=== PATIENT | male | born 1940 | race Caucasian/White ===

== ENCOUNTER 2018-04-08 12:59 | Day surgery (SDC) | payer OTHER, SELFPAY ==
[2018-04-08] MEDS: PROPARACAINE 0.5% OPHTH SOL 2 DROPS EYE-OP (13:31)
[2018-04-08 13:37] VITALS: BP 170/96; PULSE 72; RESP 16; TEMP 35.8; O2SAT 98
[2018-04-08] MEDS: CATARACT EYE COMPOUND (10 DROPS/SYRINGE) 3 DROPS EYE-OP (13:39)
--- NOTE | 2018-04-08 14:37 | PM.PREOP ---
Pre-operative Note Interval Note Pre-op Check: History & Physical Reviewed by Physician
--- NOTE | 2018-04-08 14:57 | SUR.OPER ---
Supine on eye stretcher, head on extension cradle secured with tape. Arms tucked at sides with blanket. Pillow under knees.
[2018-04-08] MEDS: CHONDROIDTIN/SOD HYALURONATE 1.05 ML SYRINGE INTRAOCULA (15:01)
[2018-04-08] MEDS: LIDOCAINE JELLY 2% 5 ML 1 APPLIC TOP (15:02)
[2018-04-08] MEDS: MOXIFLOXACIN OPHTH DROPS 3 ML BOTTLE 2 DROPS INJ (15:02)
[2018-04-08] MEDS: PHENYLEPHRINE/LIDOCAINE 3ML VIAL (OR) EYE-OP (15:02)
[2018-04-08] MEDS: TRIAMCINOLONE 50 MG/5 ML VIAL INJ (15:02)
[2018-04-08] MEDS: TETRACAINE 0.5% OPHTH DROPS 15 ML 2 DROPS EYE-LEFT (15:03)
[2018-04-08] MEDS: BALANCED SALT IRRIG SOLN NO.2 500 ML, EPINEPHrine 1 MG IRR (15:03)
--- NOTE | 2018-04-08 15:10 | P.OP_ITS ---
Operative Date/Time/Diagnoses - Pre-op diagnosis: Cataract Left eye Post-op diagnosis: same Procedure & Clinicians Surgeon: Agapito Pulido Anesthesia Type: MAC +/- and Sedation Operative Notes Procedure in detail: Patient brought to the operating suite. Tetracaine drops placed in the left eye. Patient was prepped and draped in sterile manner. Wire lid speculum was placed in the eye. Betadine drops were placed on the eye. This was irrigated. Lidocaine jelly was placed on the eye. A paracentesis port was created with a side-port blade. 0.1 mL 1% preservative free lidocaine was injected into the anterior chamber. The anterior chamber was deepened with viscoelastic. 2.6 mm keratome was used to create a temporal clear corneal incision. Cystotome and Utrata forceps were used to create continuous tear capsulorrhexis. Balanced salt solution was used to hydro dissect the nucleus. The phacoemulsification handpiece was inserted and the nucleus was removed using the stop and chop technique. The irrigation aspiration handpiece was inserted and the remaining cortex was removed. Anterior chamber was deepened with viscoelastic. An Baldwin ZCB00 intraocular lens with a power of 18.5 was injected into the capsular bag. Irrigation aspiration handpiece was inserted and the remaining viscoelastic was removed. Incision was hydrated with balanced salt solution and found to be leak free with pressure with Weck- Kelsey sponges. 0.1 mL Vigamox injected anterior chamber. 0.3 mL Kenalog 10 mg was injected subconjunctivally. Lid speculum was removed. The patient left the operating room in excellent condition. Complications: none Condition: stable Disposition: same day surgery
[2018-04-08 15:17] VITALS: BP 130/83; PULSE 69; RESP 15; TEMP 36.4; O2SAT 100
[2018-04-08 15:20] VITALS: O2SAT 99
== END 2018-04-08 15:30 | disposition home or self-care (01) ==
LOC: OR 13:01
PROVIDERS: Visit Provider Ophthalmology
DX: H25.12 Age-related nuclear cataract, left eye (principal); I48.91 Unspecified atrial fibrillation
CPT/HCPCS: J0171; J2250; J3010; J3301

== ENCOUNTER 2018-04-22 11:19 | Day surgery (SDC) | payer OTHER, SELFPAY ==
[2018-04-22] MEDS: PROPARACAINE 0.5% OPHTH SOL 2 DROPS EYE-OP (11:49)
[2018-04-22] MEDS: CATARACT EYE COMPOUND (10 DROPS/SYRINGE) 3 DROPS EYE-OP (11:53)
[2018-04-22 12:02] VITALS: BP 139/86; PULSE 57; RESP 15; TEMP 36; O2SAT 97
--- NOTE | 2018-04-22 12:33 | PM.PREOP ---
Pre-operative Note Interval Note Pre-op Check: History & Physical Reviewed by Physician
--- NOTE | 2018-04-22 12:34 | P.OP_ITS ---
Operative Date/Time/Diagnoses - Pre-op diagnosis: Cataract Right eye Post-op diagnosis: same Procedure & Clinicians Procedure: Cataract Surgery Same procedure as scheduled: Yes Surgeon: Agapito Pulido Anesthesia Type: MAC +/- and Sedation Operative Notes Procedure in detail: Patient brought to the operating suite. Tetracaine drops placed in the right eye. Patient was prepped and draped in sterile manner. Wire lid speculum was placed in the eye. Betadine drops were placed on the eye. This was irrigated. Lidocaine jelly was placed on the eye. A paracentesis port was created with a side-port blade. 0.1 mL 1% preservative free lidocaine was injected into the anterior chamber. The anterior chamber was deepened with viscoelastic. 2.6 mm keratome was used to create a temporal clear corneal incision. Cystotome and Utrata forceps were used to create continuous tear capsulorrhexis. Balanced salt solution was used to hydro dissect the nucleus. The phacoemulsification handpiece was inserted and the nucleus was removed using the stop and chop technique. The irrigation aspiration handpiece was inserted and the remaining cortex was removed. Anterior chamber was deepened with viscoelastic. An Baldwin ZCB00 intraocular lens with a power of 18.0 was injected into the capsular bag. Irrigation aspiration handpiece was inserted and the remaining viscoelastic was removed. Incision was hydrated with balanced salt solution and found to be leak free with pressure with Weck- Kelsey sponges. 0.1 mL Vigamox injected anterior chamber. 0.3 mL Kenalog 10 mg was injected subconjunctivally. Lid speculum was removed. The patient left the operating room in excellent condition. Complications: none Condition: stable Disposition: same day surgery
[2018-04-22] MEDS: CHONDROIDTIN/SOD HYALURONATE 1.05 ML SYRINGE INTRAOCULA (12:51)
[2018-04-22] MEDS: TRIAMCINOLONE 50 MG/5 ML VIAL INJ (12:52)
[2018-04-22] MEDS: MOXIFLOXACIN OPHTH DROPS 3 ML BOTTLE 2 DROPS INJ (12:52)
[2018-04-22] MEDS: BALANCED SALT IRRIG SOLN NO.2 500 ML, EPINEPHrine 1 MG IRR (12:52)
[2018-04-22] MEDS: TETRACAINE 0.5% OPHTH DROPS 15 ML 2 DROPS EYE-RIGHT (12:53)
[2018-04-22] MEDS: PHENYLEPHRINE/LIDOCAINE 3ML VIAL (OR) EYE-OP (12:54)
[2018-04-22] MEDS: LIDOCAINE JELLY 2% 5 ML 1 APPLIC TOP (12:54)
[2018-04-22 13:45] VITALS: BP 125/78; PULSE 73; RESP 12; TEMP 36.1; O2SAT 96
== END 2018-04-22 13:40 | disposition home or self-care (01) ==
LOC: OR 11:20
PROVIDERS: Visit Provider Ophthalmology
DX: H25.11 Age-related nuclear cataract, right eye (principal); I48.91 Unspecified atrial fibrillation
CPT/HCPCS: J0171; J2250; J3010; J3301

== ENCOUNTER 2018-08-02 02:27 | Emergency (ER) | payer OTHER, SELFPAY ==
[2018-08-02 02:46] VITALS: BP 159/88; PULSE 98; RESP 15; TEMP 36.4; O2SAT 98
--- NOTE | 2018-08-02 02:52 | ED.MALEGU ---
HPI - Male Genitourinary General Chief complaint: Urogenital-Male Stated complaint: frequent urination, burning sensation Time Seen by Provider: 08/02/18 02:42 Source: patient and family Mode of arrival: ambulatory Limitations: no limitations History of Present Illness HPI Narrative: ED year old nonsmoker with history of cardiac disease presents with his in the chief complaint of UTI symptoms for the past 2 days. He has had quite a few urinary tract infections in his life and states this feels very similar. He admits to gradually worsening dysuria, frequency and urgency over the past day or 2. He denies systemic symptoms such as fever, chills nor nausea or vomiting. He denies any new back pain and is otherwise well and free of complaint. MD Complaint: dysuria Onset (ago): day(s) Duration: constant Severity: mild Relieving factors: none Exacerbating factors: none Reports dysuria Related Data Home Medications Medication Instructions Recorded Confirmed aspirin 81 mg PO DAILY #0 03/15/11 04/22/18 CA PANTOTHENATE/FOLIC ACID/VIT 1 tab PO QDAY #0 05/18/13 04/22/18 (MULTIVITAMIN) Lanolin/Mineral Oil/Petrolat 30 ml OP QDAY #0 05/18/13 04/22/18 (ARTIFICIAL TEARS) oxymetazoline [Afrin 1 spray INTRANASAL QDAY #0 05/18/13 04/22/18 (oxymetazoline)] [CRANBERRY] 300 mg PO QDAY #0 07/01/13 04/22/18 cholecalciferol (vitamin D3) 1,000 unit PO DAILY 04/08/18 04/22/18 [Vitamin D3] colchicine 0.6 mg PO DAILY 04/08/18 04/22/18 cyanocobalamin (vitamin B-12) 1,000 mcg PO DAILY 04/08/18 04/22/18 [Vitamin B-12] docusate sodium [Stool Softener] 1 tab PO DAILY 04/08/18 04/22/18 latanoprost 1 drp EYE-BOTH DAILY 04/08/18 04/22/18 levothyroxine [Synthroid] 75 mcg PO DAILY 04/08/18 04/22/18 metoprolol succinate 25 mg PO DAILY 04/08/18 04/22/18 omeprazole See Label Instructions .ROUTE 04/08/18 04/22/18 .COMPLEX simvastatin 10 mg PO QPM 04/08/18 04/22/18 warfarin See Label Instructions .ROUTE 04/08/18 04/22/18 .COMPLEX warfarin See Label Instructions .ROUTE 04/08/18 04/22/18 .COMPLEX Previous Rx's Medication Instructions Recorded nitroglycerin [Nitrostat] 0.4 mg SUBLINGUAL PRN #25 10/20/12 cephalexin [Keflex] 500 mg PO QID 7 Days #28 cap 08/02/18 Allergies Allergy/AdvReac Type Severity Reaction Status Date / Time venom-honey bee Allergy Severe SOB Verified 04/22/18 11:45 [bee venom (honey bee)] amoxicillin Allergy Mild AGITATION,SKIN Verified 04/22/18 11:45 CRAWL ciprofloxacin Allergy Mild JOINT Verified 04/22/18 11:45 SWELLING, WHITE BM, RED RASH Penicillins Allergy Mild RASH Verified 04/22/18 11:45 sulfamethoxazole Allergy Unknown AGITATION,SKIN Verified 04/22/18 11:45 [From ] CRAWL trimethoprim [From ] Allergy Unknown AGITATION,SKIN Verified 04/22/18 11:45 CRAWL Review of Systems Review of Systems All systems reviewed & are unremarkable except as noted in HPI and below Constitutional Denies chills, Denies fever(s), Denies lethargy and Denies weakness Eyes Denies change in vision, Denies eye discharge, Denies irritation and Denies loss of vision ENT Ears, Nose, Mouth, and Throat: Denies change in voice, Denies neck pain and Denies sore throat Cardiovascular Denies chest pain, Denies irregular heart rhythm, Denies lightheadedness, Denies palpitations, Denies dyspnea, Denies dyspnea on exertion and Denies orthopnea Respiratory Denies cough, Denies dyspnea, Denies dyspnea on exertion and Denies wheezing Gastrointestinal Gastrointestinal: Denies abdominal pain, Denies change in bowel habits, Denies diarrhea, Denies nausea and Denies vomiting Genitourinary Denies hematuria, Reports dysuria, Denies flank pain, Reports urinary frequency, Reports urinary hesitancy and Reports urinary urgency Musculoskeletal Denies neck pain Integumentary/Breasts Denies pruritus, Denies erythema, Denies rash and Denies wounds Neurologic Denies confusion, Denies loss of vision and Denies weakness Psychiatric Denies anxiety, Denies confusion, Denies depression, Denies homicidal ideation and Denies suicidal ideation Endocrine Denies palpitations Hematologic/Lymphatic Denies easy bruising Allergic/Immunologic Denies wheezing PFSH Social History household members: spouse Smoking Status: Never smoker Exam Narrative Exam Narrative: GEN: AOx3 and in mild distress EYES: Pupils are equal, round, and reactive to light and accommodation. Extraoccular muscles are intact bilaterally. There is no subconjunctival hemorrhage or exudate. CHEST: Lungs are clear to auscultation bilaterally and free of wheezes, rales, or rhonchi. Heart rate is regular rhythm, there are no murmurs, clicks, rubs, or gallops. There is no chest wall tenderness. ABD: Abdomen is soft and nontender. There is no guarding or rebound. Bowel sounds are normal in all 4 quadrants. There is no mass or organomegaly. EXT: Full painless ROM of all extremities with no loss of sensation or strength. BACK: No CVA tenderness SKIN: Warm, pink, and dry. No erythema or rash Initial Vital Signs Initial Vital Signs: Vital Signs Temperature 97.5 F L 08/02/18 02:46 Pulse Rate 98 H 08/02/18 02:46 Respiratory Rate 15 08/02/18 02:46 Blood Pressure 159/88 H 08/02/18 02:46 Pulse Oximetry 98 08/02/18 02:46 Course Orders Ordered: ED Orders 08/02/18 03:15 Urinalysis and Microscopic Stat Discontinued Medications [facility]ef[facility] Stop: 08/02/18 03:17 Last Admin: 08/02/18 03:20 Dose: 500 mg Vital Signs - 8 hr 08/02/18 02:46 Temperature 97.5 F L Pulse Rate 98 H Respiratory Rate 15 Blood Pressure 159/88 H Pulse Oximetry 98 MDM - Male Genitourinary Lab Data Urine Dip Bedside Urine Glucose Negative Bedside Urine Bilirubin - Negative Bedside Urine Ketone - Negative Urine Specific [place] 1.015 Bedside Urine Occult Blood - Negative Bedside Urine pH 6.0 Bedside Urine Protein - Negative Bedside Urine Urobilinogen - Negative Bedside Urine Nitrite - Negative Bedside Urine Leukocytes - Negative Esterase MDM Narrative Medical decision making narrative: patient has a long history of urinary tract infections and states this is very similar to nearly every UTI he has had. His urine PU see is unconvincing but his description of symptoms warrants treatment. Additionally, despite reported allergy to the penicillins he states he has no trouble with Keflex and even has a printed on his medication list, which he keeps in his pocket, the this is a safe antibiotic for him to use Discharge Plan Departure Patient Disposition: Home Clinical Impression: Urinary tract infection Discharge Date/Time: 08/02/18 03:25 Instructions: DI for Urinary Tract Infection (UTI) Activity Restrictions/Additional Instructions: *You have been diagnosed with [ acute urinary tract infection ] *What to do: *Take medications as directed: your Keflex has been electronically transmitted to [facility] your request *Follow up with your primary care provider in 2-3 days, call for an appointment. Let them know you were seen in the Emergency Department and that we ask that you be seen in follow up. antibiotics have the potential to alter your Coumadin level (INR, protime) adversely, it is very important he follow closely with your doctors to track this number *Return to ER if you should have any new, worsening or concerning symptoms such as fever, shaking chills, significant weakness, dark stool, abnormal bleeding or other bothersome symptoms Prescriptions: New cephalexin [Keflex] 500 mg capsule 500 mg PO QID 7 Days Qty: 28 RF: 0 No Action aspirin 81 mg Tablet,Delayed Release (Dr/Ec) 81 mg PO DAILY Qty: 0 RF: 0 nitroglycerin [Nitrostat] 0.4 MG tablet, sublingual 0.4 mg Sublingual PRN Qty: 25 RF: 1 CA PANTOTHENATE/FOLIC ACID/VIT (MULTIVITAMIN) 1 tab PO QDAY Qty: 0 RF: 0 Lanolin/Mineral Oil/Petrolat (ARTIFICIAL TEARS) 30 ml OP QDAY Qty: 0 RF: 0 oxymetazoline [Afrin (oxymetazoline)] 0.05 % spray,non-aerosol 1 spray Intranasal QDAY Qty: 0 RF: 0 [CRANBERRY] 300 mg PO QDAY Qty: 0 RF: 0 docusate sodium [Stool Softener] 50 mg Capsule 1 tab PO DAILY RF: 0 latanoprost 0.005 % Drops 1 drp EYE-BOTH DAILY RF: 0 simvastatin 10 mg Tablet 10 mg PO QPM RF: 0 cyanocobalamin (vitamin B-12) [Vitamin B-12] 1,000 mcg Tablet 1,000 mcg PO DAILY RF: 0 warfarin 2.5 mg Tablet See Label Instructions .ROUTE .COMPLEX RF: 0 levothyroxine [Synthroid] 75 mcg Tablet 75 mcg PO DAILY RF: 0 warfarin 5 mg Tablet See Label Instructions .ROUTE .COMPLEX RF: 0 omeprazole 20 mg Capsule,Delayed Release(Dr/Ec) See Label Instructions .ROUTE .COMPLEX RF: 0 metoprolol succinate 25 mg Tablet Extended Release 24 Hr 25 mg PO DAILY RF: 0 colchicine 0.6 mg Tablet 0.6 mg PO DAILY RF: 0 cholecalciferol (vitamin D3) [Vitamin D3] 1,000 unit Capsule 1,000 unit PO DAILY RF: 0
[2018-08-02] MEDS: cephALEXin 250 MG PREPACK 1 BOTTLE MISC (03:20)
[2018-08-02 03:24] VITALS: BP 138/86; PULSE 60; RESP 14; O2SAT 95
[2018-08-02 03:51] LABS: Bacteria Urine None Seen; WBC Urine None Seen (0-5/HPF)
[2018-08-02 03:58] LABS: Appearance Urine UA CLEAR; Bilirubin Urine UA NEGATIVE (NEGATIVE); Color Urine UA YELLOW; Glucose Urine UA NEGATIVE (Normal); Ketones Urine UA NEGATIVE (NEGATIVE); Leukocyte Esterase Urine UA NEGATIVE (NEGATIVE); Nitrite Urine UA Negative (Negative); Occult Blood Urine UA TRACE-INTACT (Negative); Protein Urine UA NEGATIVE (Negative); Urobilinogen Urine UA 0.2 E.U./dL (0.2); pH Urine UA 6.5 (4.5-8.0)
[2018-08-02 04:24] LABS: Culture Indicated Urine Cult Not Indicated; RBC Urine 0-1/HPF (0-5/HPF); Squamous Epithelial Cell Urine 0-1 /HPF
== END 2018-08-02 03:25 | disposition home or self-care (01) ==
PROVIDERS: Emergency Provider Emergency Medicine
DX: N39.0 Urinary tract infection, site not specified (principal)
CPT/HCPCS: 81001; 81003; 99282; 99283

== ENCOUNTER 2018-08-05 19:58 | Emergency (ER) | payer OTHER, SELFPAY ==
[2018-08-05 20:05] VITALS: BP 176/108; PULSE 80; RESP 18; TEMP 37.6; O2SAT 99
--- NOTE | 2018-08-05 20:18 | DI.RAD.S_ITS ---
PROCEDURE: XR CHEST 1V INDICATIONS: chest pain TECHNIQUE: One view of the chest was acquired. COMPARISON: [facility], , CHEST 2 VIEW, 05/14/2013, 7:06. FINDINGS: Surgical changes and devices: None. Lungs and pleura: No pleural effusions or pneumothorax. There is mild pulmonary vascular congestion. No definite focal infiltrate. Mediastinum: Mediastinal contours appear normal. Heart size is normal. Bones and chest wall: No suspicious bony lesions. Overlying soft tissues appear unremarkable. IMPRESSION: Mild congestion. No focal infiltrate, pleural effusion or pneumothorax. Dictated by: Ej Mustafa M.D. on 08/05/2018 at 20:46 Approved by: Ej Mustafa M.D. on 08/05/2018 at 20:50
[2018-08-05 20:23] VITALS: BP 176/108; PULSE 80; RESP 18; TEMP 37.6; O2SAT 99
[2018-08-05 20:24] LABS: Add Manual Diff / Slide Review NO; Basophils Percent Auto 0.7 % (0-2); Eosinophils Percent Auto 0.3 % (2-4); Hematocrit 52.9 % (41-53); Hemoglobin 18.2 g/dL (13.5-17.5); Lymphocytes Percent Auto 11.9 % (25-40); Mean Corpuscular HGB Conc 34.3 % (30-36); Mean Corpuscular Hemoglobin 30.1 PG (26-34); Mean Corpuscular Volume 87.6 fL (80-100); Monocytes Percent Auto 14.4 % (3-14); Neutrophils Absolute Auto 6900 /uL (3000-5900); Neutrophils Percent Auto 72.7 % (50-75); Platelet Count 200 X10^3/uL (150-400); Red Blood Cell Count 6.05 X10^6/uL (4.5-5.9); Red Cell Distribution Width 14.8 % (11.6-14.8); White Blood Cell Count 9.5 X10^3/uL (4.5-11.0)
[2018-08-05] MEDS: ONDANSETRON 4 MG/2 ML INJ IV ×2 (20:37→21:15)
[2018-08-05] MEDS: SODIUM CHLORIDE 0.9% 1,000 ML 1000 ML IV (20:37)
[2018-08-05 20:42] LABS: Alanine Aminotransferase 18 IU/L (21-72); Albumin 4.7 g/dL (3.5-5.0); Albumin Globulin Ratio 1.2 (1.0-2.8); Alkaline Phosphatase 77 U/L (38-126); Aspartate Aminotransferase 52 IU/L (17-59); BUN Creatinine Ratio 11.1 (6-22); Bilirubin Total 1.3 mg/dL (0.2-1.3); Blood Urea Nitrogen 10 mg/dL (9-20); Calcium 9.1 mg/dL (8.4-10.2); Carbon Dioxide 25 mmol/L (22-32); Chloride 91 mmol/L (98-107); Creatine Kinase 128 U/L (55-170); Estimated Glomerular Filt Rate > 60.0 mL/min (>60); Globulin 3.8 g/dL (1.7-4.1); Glucose 135 mg/dL (80-110); Lipase 40 U/L (23-300); Potassium 4.8 mmol/L (3.4-5.1); Sodium 128 mmol/L (137-145); Total Protein 8.5 g/dL (6.3-8.2)
[2018-08-05 20:46] LABS: HEMOLYSIS 119 (0-50)
[2018-08-05] MEDS: ACETAMINOPHEN 325 MG TABLET PO (20:52)
[2018-08-05 20:54] LABS: Troponin I 0.022 ng/mL (0.01-0.034)
[2018-08-05 21:00] VITALS: BP 168/98; PULSE 69; RESP 16; O2SAT 97
[2018-08-05 21:09] LABS: Influenza A and B by PCR Rapid Negative (Negative)
[2018-08-05 21:14] LABS: CKMB % Relative Index 2.8 % (1.5-5.0); Creatine Kinase MB 3.58 ng/mL (<2.37)
--- NOTE | 2018-08-05 21:18 | ED_ITS ---
HPI - Allergic Reaction <YUMIKO Lord - Last Filed: 08/05/18 21:48> General Chief complaint: Abdominal Pain Stated complaint: POSSIBLE ALLERGIC REACTION Time Seen by Provider: 08/05/18 20:01 Source: patient Mode of arrival: ambulatory Limitations: no limitations History of Present Illness HPI narrative: 78 year no with history of atrial fibrillation and is a nonsmoker here for complaint of having nausea vomiting, feeling like his esophagus it is burning and a headache that started 2 days ago. He believes that the symptoms started after he started taking Keflex for urinary tract infection. he denies any tightness in his throat or shortness of breath. states he has had a low-grade fever. Positive p.o. intake. He denies having any urinary symptoms at this time. No other concerns or complaints. Related Data Home Medications Medication Instructions Recorded Confirmed aspirin 81 mg PO DAILY #0 03/15/11 04/22/18 CA PANTOTHENATE/FOLIC ACID/VIT 1 tab PO QDAY #0 05/18/13 04/22/18 (MULTIVITAMIN) Lanolin/Mineral Oil/Petrolat 30 ml OP QDAY #0 05/18/13 04/22/18 (ARTIFICIAL TEARS) oxymetazoline [Afrin 1 spray INTRANASAL QDAY #0 05/18/13 04/22/18 (oxymetazoline)] [CRANBERRY] 300 mg PO QDAY #0 07/01/13 04/22/18 cholecalciferol (vitamin D3) 1,000 unit PO DAILY 04/08/18 04/22/18 [Vitamin D3] colchicine 0.6 mg PO DAILY 04/08/18 04/22/18 cyanocobalamin (vitamin B-12) 1,000 mcg PO DAILY 04/08/18 04/22/18 [Vitamin B-12] docusate sodium [Stool Softener] 1 tab PO DAILY 04/08/18 04/22/18 latanoprost 1 drp EYE-BOTH DAILY 04/08/18 04/22/18 levothyroxine [Synthroid] 75 mcg PO DAILY 04/08/18 04/22/18 metoprolol succinate 25 mg PO DAILY 04/08/18 04/22/18 omeprazole See Label Instructions .ROUTE 04/08/18 04/22/18 .COMPLEX simvastatin 10 mg PO QPM 04/08/18 04/22/18 warfarin See Label Instructions .ROUTE 04/08/18 04/22/18 .COMPLEX warfarin See Label Instructions .ROUTE 04/08/18 04/22/18 .COMPLEX Previous Rx's Medication Instructions Recorded nitroglycerin [Nitrostat] 0.4 mg SUBLINGUAL PRN #25 10/20/12 cephalexin [Keflex] 500 mg PO QID 7 Days #28 cap 08/02/18 ondansetron 4 mg PO TID PRN #6 tab 08/05/18 Allergies Allergy/AdvReac Type Severity Reaction Status Date / Time venom-honey bee Allergy Severe SOB Verified 04/22/18 11:45 [bee venom (honey bee)] amoxicillin Allergy Mild AGITATION,SKIN Verified 04/22/18 11:45 CRAWL ciprofloxacin Allergy Mild JOINT Verified 04/22/18 11:45 SWELLING, WHITE BM, RED RASH Penicillins Allergy Mild RASH Verified 04/22/18 11:45 sulfamethoxazole Allergy Unknown AGITATION,SKIN Verified 04/22/18 11:45 [From ] CRAWL trimethoprim [From ] Allergy Unknown AGITATION,SKIN Verified 04/22/18 11: 45 CRAWL Review of Systems <YUMIKO Lord - Last Filed: 08/05/18 21:48> Constitutional Denies chills, Reports fever(s), Denies lethargy and Denies weakness Eyes Denies change in vision, Denies eye discharge, Denies irritation and Denies loss of vision ENT Ears, Nose, Mouth, and Throat: Denies change in voice, Denies neck pain and Denies sore throat Cardiovascular Reports chest pain, Denies irregular heart rhythm, Denies lightheadedness, Denies palpitations, Denies dyspnea, Denies dyspnea on exertion and Denies orthopnea Respiratory Denies cough, Denies dyspnea, Denies dyspnea on exertion and Denies wheezing Gastrointestinal Gastrointestinal: Reports nausea and Reports vomiting Genitourinary Denies hematuria, Denies flank pain, Denies urinary incontinence and Denies urinary urgency Musculoskeletal Denies neck pain Integumentary/Breasts Denies pruritus, Denies erythema, Denies rash and Denies wounds Neurologic Denies confusion, Denies loss of vision and Denies weakness Psychiatric Denies anxiety, Denies confusion, Denies depression, Denies homicidal ideation and Denies suicidal ideation Endocrine Denies palpitations Hematologic/Lymphatic Denies easy bruising Allergic/Immunologic Denies wheezing Exam <YUMIKO Lord - Last Filed: 08/05/18 21:48> Initial Vital Signs Initial Vital Signs: Vital Signs Temperature 99.7 F H 08/05/18 20:05 Pulse Rate 80 08/05/18 20:05 Respiratory Rate 18 08/05/18 20:05 Blood Pressure 176/108 H 08/05/18 20:05 Pulse Oximetry 99 08/05/18 20:05 Const General: cooperative and well developed Nutritional Appearance: well nourished Orientation: alert, awake, oriented x3 and not confused HENNH Mouth: oral mucosae normal, oropharynx normal and moist mucous membranes Eyes Conjunctivae: conjunctivae normal Sclera: sclerae normal Pupils: PERRL EOM: EOM intact bilaterally Chest Chest: normal inspection of the chest Resp Effort & Inspection: normal respiratory effort, able to speak in complete sentences, no respiratory distress and no use of accessory muscles Auscultation: clear to auscultation bilaterally, no rales, no rhonchi and no wheezes Cardio Rate: regular rate Rhythm: regular rhythm and abnormal rhythm regularly irregular Heart Sounds: no click, no gallops, no murmurs and no rubs Pulses: normal peripheral pulses GI Inspection: non-distended Palpation: soft, no hepatosplenomegaly, No guarding, No pulsatile mass and No tender Auscultation: normal bowel sounds General: No CVA tenderness Skin General: no rashes or lesions noted, No jaundice and No petechiae Neuro General: alert, oriented x3, gait normal and no focal motor deficits Speech: speech normal <Marimar Godwin DO - Last Filed: 08/05/18 22:55> Initial Vital Signs Initial Vital Signs: Vital Signs Temperature 99.7 F H 08/05/18 20:05 Pulse Rate 80 08/05/18 20:05 Respiratory Rate 18 08/05/18 20:05 Blood Pressure 176/108 H 08/05/18 20:05 Pulse Oximetry 99 08/05/18 20:05 Course <YUMIKO Lord - Last Filed: 08/05/18 21:48> Orders Ordered: ED Orders 08/05/18 20:10 Complete Blood Count AUTO DIFF Stat Comprehensive Metabolic Panel Stat Lipase Stat Troponin & CK Cardiac Panel Stat 08/05/18 20:18 XR chest 1V Stat EKG-12 Lead Stat 08/05/18 20:42 Influenza A and B by PCR Rapid Stat 08/05/18 21:40 Urine Culture Stat Discontinued Medications Acetaminophen (Tylenol) 325 mg PO NOW ONE Stop: 08/05/18 20:52 Last Admin: 08/05/18 20:52 Dose: 325 mg Sodium Chloride (Normal Saline 0.9%) 1,000 mls @ 1,000 mls/hr IV BOLUS ONE Stop: 08/05/18 21:14 Last Infusion: 08/05/18 21:38 Dose: 0 mls/hr Admin: 08/05/18 20:37 Dose: 1,000 mls/hr Ondansetron HCl (Zofran) 4 mg IV NOW ONE Stop: 08/05/18 20:16 Last Admin: 08/05/18 20:37 Dose: 4 mg Ondansetron HCl (Zofran) 4 mg IV NOW ONE Stop: 08/05/18 20:59 Last Admin: 08/05/18 21:15 Dose: 4 mg Ondansetron HCl (Zofran Odt Prepack) 1 bottle MISC SEEINSTR ONE Stop: 08/05/18 21:26 Last Admin: 08/05/18 21:37 Dose: 1 bottle Vital Signs - 8 hr 08/05/18 20:05 08/05/18 20:23 08/05/18 21:00 Temperature 99.7 F H 99.7 F H Pulse Rate 80 80 69 Respiratory Rate 18 18 16 Blood Pressure 176/108 H 176/108 H Blood Pressure [Left Arm] 168/98 H Pulse Oximetry 99 99 97 08/05/18 21:54 Temperature Pulse Rate 81 Respiratory Rate 14 Blood Pressure 128/87 Blood Pressure [Left Arm] Pulse Oximetry 97 <Marimar Godwin DO - Last Filed: 08/05/18 22:55> Orders Ordered: ED Orders 08/05/18 20:10 Complete Blood Count AUTO DIFF Stat Comprehensive Metabolic Panel Stat Lipase Stat Troponin & CK Cardiac Panel Stat 08/05/18 20:18 XR chest 1V Stat EKG-12 Lead Stat 08/05/18 20:42 Influenza A and B by PCR Rapid Stat 08/05/18 21:40 Urine Culture Stat Discontinued Medications Acetaminophen (Tylenol) 325 mg PO NOW ONE Stop: 08/05/18 20:52 Last Admin: 08/05/18 20:52 Dose: 325 mg Sodium Chloride (Normal Saline 0.9%) 1,000 mls @ 1,000 mls/hr IV BOLUS ONE Stop: 08/05/18 21:14 Last Infusion: 08/05/18 21:38 Dose: 0 mls/hr Admin: 08/05/18 20:37 Dose: 1,000 mls/hr Ondansetron HCl (Zofran) 4 mg IV NOW ONE Stop: 08/05/18 20:16 Last Admin: 08/05/18 20:37 Dose: 4 mg Ondansetron HCl (Zofran) 4 mg IV NOW ONE Stop: 08/05/18 20:59 Last Admin: 08/05/18 21:15 Dose: 4 mg Ondansetron HCl (Zofran Odt Prepack) 1 bottle MISC SEEINSTR ONE Stop: 08/05/18 21:26 Last Admin: 08/05/18 21:37 Dose: 1 bottle Vital Signs - 8 hr 08/05/18 20:05 08/05/18 20:23 08/05/18 21:00 Temperature 99.7 F H 99.7 F H Pulse Rate 80 80 69 Respiratory Rate 18 18 16 Blood Pressure 176/108 H 176/108 H Blood Pressure [Left Arm] 168/98 H Pulse Oximetry 99 99 97 08/05/18 21:54 Temperature Pulse Rate 81 Respiratory Rate 14 Blood Pressure 128/87 Blood Pressure [Left Arm] Pulse Oximetry 97 MDM - Allergic Reaction <YUMIKO Lord - Last Filed: 08/05/18 21:48> Lab Data Result diagrams: 08/05/18 20:10 08/05/18 20:10 Lab Results 08/05/18 08/05/18 08/05/18 Range/Units 20:10 20:10 20:42 WBC 9.5 (4.5-11.0) X10^3/uL RBC 6.05 H (4.5-5.9) X10^6/uL Hgb 18.2 H (13.5-17.5) g/dL Hct 52.9 (41-53) % MCV 87.6 (80-100) fL MCH 30.1 (26-34) PG MCHC 34.3 (30-36) % RDW 14.8 (11.6-14.8) % Plt Count 200 (150-400) X10^3/uL Neut % (Auto) 72.7 (50-75) % Lymph % (Auto) 11.9 L (25-40) % [place] % (Auto) 14.4 H (3-14) % Eos % (Auto) 0.3 L (2-4) % Baso % (Auto) 0.7 (0-2) % Neut # (Auto) 6900 H (6961-5854) /uL Sodium 128 L (137-145) mmol/L Potassium 4.8 (3.4-5.1) mmol/L Chloride 91 L (98-107) mmol/L Carbon Dioxide 25 (22-32) mmol/L BUN 10 (9-20) mg/dL Creatinine 0.90 (0.66-1.25) mg/dL Estimated GFR > 60.0 (>60) mL/min BUN/Creatinine Ratio 11.1 (6-22) Glucose 135 H (80-110) mg/dL Calcium 9.1 (8.4-10.2) mg/dL Total Bilirubin 1.3 (0.2-1.3) mg/dL AST 52 (17-59) IU/L ALT 18 L (21-72) IU/L Alkaline Phosphatase 77 (38-126) U/L Total Creatine Kinase 128 (55-170) U/L CK-MB (CK-2) 3.58 H (<2.37) ng/mL CK-MB (CK-2) Rel Index 2.8 (1.5-5.0) % Troponin I 0.022 (0.01-0.034) ng/mL Total Protein 8.5 H (6.3-8.2) g/dL Albumin 4.7 (3.5-5.0) g/dL Globulin 3.8 (1.7-4.1) g/dL Albumin/Globulin Ratio 1.2 (1.0-2.8) Lipase 40 (23-300) U/L Influenza A & B (PCR) Negative (Negative) Imaging Data Chest x-ray: Radiologist's impression: [address] [place] [id number] XRay Report Signed Patient: Calvin Irwin TMR#: [id number] : 1940Acct:[id number] Age/Sex: 78 / MDate of Service: 08/05/18 Loc: ED Accession Number: [id number] Procedure: XR chest 1V Ordering Provider: Steven Velazquez PROCEDURE: XR CHEST 1V INDICATIONS: chest pain TECHNIQUE: One view of the chest was acquired. COMPARISON: [facility], , CHEST 2 VIEW, 05/14/2013, 7:06. FINDINGS: Surgical changes and devices: None. Lungs and pleura: No pleural effusions or pneumothorax. There is mild pulmonary vascular congestion. No definite focal infiltrate. Mediastinum: Mediastinal contours appear normal. Heart size is normal. Bones and chest wall: No suspicious bony lesions. Overlying soft tissues appear unremarkable. IMPRESSION: Mild congestion. No focal infiltrate, pleural effusion or pneumothorax. Dictated by: Ej Mustafa M.D. on 08/05/2018 at 20:46 Approved by: Ej Mustafa M.D. on 08/05/2018 at 20:50 ECG Data Interpretation: ecg shows atrial fibrillation no st elevation or depression. ventricular rate is 75. QRS duration of 142. QT of 412. EKG consistent with prior EKGs MDM Narrative Medical decision making narrative: EKG shows atrial fibrillation consistent with his prior EKGs. Chest x-ray was obtained was negative for any acute findings. CBC was unremarkable. Chem panel shows hypo in a tree me a most likely due to nausea and vomiting. Urinalysis was negative for indications of urinary tract infection. Cardiac enzymes were obtained were negative. Influenza swab was also obtained and was negative. Differential between the side effects due to the Keflex or a viral illness. Will hold off antibiotics at this time. Urine culture is ordered to ensure no growth. Zofran is prescribed to help with the nausea. Tylenol as needed for discomfort and fever. Plenty of fluids. Slowly advance diet as tolerated. Follow up with primary care provider in the nex <Marimar Godwin, DO - Last Filed: 08/05/18 22:55> Lab Data Lab Results 08/05/18 08/05/18 08/05/18 Range/Units 20:10 20:10 20:42 WBC 9.5 (4.5-11.0) X10^3/uL RBC 6.05 H (4.5-5.9) X10^6/uL Hgb 18.2 H (13.5-17.5) g/dL Hct 52.9 (41-53) % MCV 87.6 (80-100) fL MCH 30.1 (26-34) PG MCHC 34.3 (30-36) % RDW 14.8 (11.6-14.8) % Plt Count 200 (150-400) X10^3/uL Neut % (Auto) 72.7 (50-75) % Lymph % (Auto) 11.9 L (25-40) % [place] % (Auto) 14.4 H (3-14) % Eos % (Auto) 0.3 L (2-4) % Baso % (Auto) 0.7 (0-2) % Neut # (Auto) 6900 H (7608-9867) /uL Sodium 128 L (137-145) mmol/L Potassium 4.8 (3.4-5.1) mmol/L Chloride 91 L (98-107) mmol/L Carbon Dioxide 25 (22-32) mmol/L BUN 10 (9-20) mg/dL Creatinine 0.90 (0.66-1.25) mg/dL Estimated GFR > 60.0 (>60) mL/min BUN/Creatinine Ratio 11.1 (6-22) Glucose 135 H (80-110) mg/dL Calcium 9.1 (8.4-10.2) mg/dL Total Bilirubin 1.3 (0.2-1.3) mg/dL AST 52 (17-59) IU/L ALT 18 L (21-72) IU/L Alkaline Phosphatase 77 (38-126) U/L Total Creatine Kinase 128 (55-170) U/L CK-MB (CK-2) 3.58 H (<2.37) ng/mL CK-MB (CK-2) Rel Index 2.8 (1.5-5.0) % Troponin I 0.022 (0.01-0.034) ng/mL Total Protein 8.5 H (6.3-8.2) g/dL Albumin 4.7 (3.5-5.0) g/dL Globulin 3.8 (1.7-4.1) g/dL Albumin/Globulin Ratio 1.2 (1.0-2.8) Lipase 40 (23-300) U/L Influenza A & B (PCR) Negative (Negative) Discharge Plan Departure Patient Disposition: Home Clinical Impression: Nausea & vomiting Discharge Date/Time: 08/05/18 21:55 Interventions: ED Discharge Assessment Last Done: 08/05/18 21:54 Instructions: DI for Viral Gastroenteritis -- Adult Activity Restrictions/Additional Instructions: Chest x-ray was obtained was negative for any acute findings. laboratory results show decreased sodium level most likely secondary to the nausea and vomiting. I prescribed Zofran to help with nausea vomiting anterior drinking enough fluids. Slowly advance diet as tolerated. hold on any antibiotics for now. urine culture is pending. Follow up with primary care provider in the next couple days for re-evaluation. Differential between a viral illness and side effects from the Keflex. Prescriptions: New ondansetron 4 mg tablet,disintegrating 4 mg PO TID PRN (Reason: nausea and vomiting) Qty: 6 RF: 0 No Action aspirin 81 mg Tablet,Delayed Release (Dr/Ec) 81 mg PO DAILY Qty: 0 RF: 0 nitroglycerin [Nitrostat] 0.4 MG tablet, sublingual 0.4 mg Sublingual PRN Qty: 25 RF: 1 CA PANTOTHENATE/FOLIC ACID/VIT (MULTIVITAMIN) 1 tab PO QDAY Qty: 0 RF: 0 Lanolin/Mineral Oil/Petrolat (ARTIFICIAL TEARS) 30 ml OP QDAY Qty: 0 RF: 0 oxymetazoline [Afrin (oxymetazoline)] 0.05 % spray,non-aerosol 1 spray Intranasal QDAY Qty: 0 RF: 0 [CRANBERRY] 300 mg PO QDAY Qty: 0 RF: 0 docusate sodium [Stool Softener] 50 mg Capsule 1 tab PO DAILY RF: 0 latanoprost 0.005 % Drops 1 drp EYE-BOTH DAILY RF: 0 simvastatin 10 mg Tablet 10 mg PO QPM RF: 0 cyanocobalamin (vitamin B-12) [Vitamin B-12] 1,000 mcg Tablet 1,000 mcg PO DAILY RF: 0 warfarin 2.5 mg Tablet See Label Instructions .ROUTE .COMPLEX RF: 0 levothyroxine [Synthroid] 75 mcg Tablet 75 mcg PO DAILY RF: 0 warfarin 5 mg Tablet See Label Instructions .ROUTE .COMPLEX RF: 0 omeprazole 20 mg Capsule,Delayed Release(Dr/Ec) See Label Instructions .ROUTE .COMPLEX RF: 0 metoprolol succinate 25 mg Tablet Extended Release 24 Hr 25 mg PO DAILY RF: 0 colchicine 0.6 mg Tablet 0.6 mg PO DAILY RF: 0 cholecalciferol (vitamin D3) [Vitamin D3] 1,000 unit Capsule 1,000 unit PO DAILY RF: 0 cephalexin [Keflex] 500 mg capsule 500 mg PO QID 7 Days Qty: 28 RF: 0 <Marimar Godwin DO - Last Filed: 08/05/18 22:55> Cosign ED Attending Cosignature Attestation: I was immediately available in the department for consultation. This documentation has been reviewed and I agree with assessment and plan. Supervised by Marimar Godwin DO
[2018-08-05] MEDS: ONDANSETRON 4 MG ODT PREPACK 1 BOTTLE MISC (21:37)
[2018-08-05 21:54] VITALS: BP 128/87; PULSE 81; RESP 14; O2SAT 97
== END 2018-08-05 21:55 | disposition home or self-care (01) ==
PROVIDERS: Emergency Provider Nurse Practitioner Family
DX: R11.2 Nausea with vomiting, unspecified (principal)
CPT/HCPCS: 36591; 71045; 80053; 82550; 82553; 83690; 84484; 85025; 87086; 87400; 93005; 96361; 96374; 96375; 99283; 99285; J2405

== ENCOUNTER → 2019-01-15 09:54 | Outpatient (REF) | payer OTHER, SELFPAY ==
[2019-01-15 10:15] LABS: Influenza A and B by PCR Rapid Negative (Negative)
== END ==
LOC: LAB 09:54
PROVIDERS: Visit Provider Family Medicine
DX: Z11.59 Encounter for screening for other viral diseases (principal)
CPT/HCPCS: 87400

== ENCOUNTER → 2019-01-19 08:58 | Outpatient (REF) | payer OTHER, SELFPAY ==
[2019-01-19 09:05] LABS: INR 3.2 (0.9-1.3); Prothrombin Time 37.7 SECONDS (10.1-12.7)
== END ==
LOC: LAB 08:58
PROVIDERS: Visit Provider Family Medicine
DX: Z79.01 Long term (current) use of anticoagulants (principal)
CPT/HCPCS: 85610

== ENCOUNTER → 2019-02-23 08:55 | Outpatient (REF) | payer OTHER, SELFPAY ==
[2019-02-23 10:11] LABS: INR 3.7 (0.9-1.3); Prothrombin Time 43.8 SECONDS (10.1-12.7)
== END ==
LOC: LAB 08:55
PROVIDERS: Visit Provider Family Medicine
DX: Z79.01 Long term (current) use of anticoagulants (principal)
CPT/HCPCS: 85610

== ENCOUNTER → 2019-03-09 09:41 | Outpatient (REF) | payer OTHER, SELFPAY ==
[2019-03-09 09:49] LABS: INR 2.2 (0.9-1.3); Prothrombin Time 26.4 SECONDS (10.1-12.7)
== END ==
LOC: LAB 09:41
PROVIDERS: Visit Provider Family Medicine
DX: Z79.01 Long term (current) use of anticoagulants (principal)
CPT/HCPCS: 85610

== ENCOUNTER → 2019-04-13 09:28 | Outpatient (ROUT) | payer OTHER, SELFPAY ==
[2019-04-13 09:53] LABS: INR 3.5 (0.9-1.3)
== END ==
PROVIDERS: Visit Provider Family Medicine
DX: Z79.01 Long term (current) use of anticoagulants (principal)
CPT/HCPCS: 85610

== ENCOUNTER → 2019-04-27 08:49 | Outpatient (ROUT) | payer OTHER, SELFPAY ==
[2019-04-27 09:04] LABS: INR 3.5 (0.9-1.3); Prothrombin Time 41.7 SECONDS (10.1-12.7)
== END ==
PROVIDERS: Visit Provider Family Medicine
DX: Z79.01 Long term (current) use of anticoagulants (principal)
CPT/HCPCS: 85610

== ENCOUNTER → 2019-05-11 09:48 | Outpatient (ROUT) | payer OTHER, SELFPAY ==
[2019-05-11 10:41] LABS: Prothrombin Time 22.9 SECONDS (10.1-12.7)
== END ==
PROVIDERS: Visit Provider Student in an Organized Health Care Education/Training Program
DX: Z79.01 Long term (current) use of anticoagulants (principal)
CPT/HCPCS: 85610

== ENCOUNTER → 2019-09-28 08:24 | Outpatient (ROUT) | payer OTHER, SELFPAY ==
[2019-09-28 08:33] LABS: INR 1.6 (0.9-1.3)
== END ==
PROVIDERS: Visit Provider Student in an Organized Health Care Education/Training Program
DX: Z79.01 Long term (current) use of anticoagulants (principal)
CPT/HCPCS: 85610

== ENCOUNTER → 2019-10-12 09:46 | Outpatient (ROUT) | payer OTHER, SELFPAY ==
[2019-10-12 09:52] LABS: INR 1.7 (0.9-1.3); Prothrombin Time 20.1 SECONDS (10.1-12.7)
== END ==
PROVIDERS: Visit Provider Student in an Organized Health Care Education/Training Program
DX: Z79.01 Long term (current) use of anticoagulants (principal)
CPT/HCPCS: 85610

== ENCOUNTER → 2019-11-09 10:14 | Outpatient (ROUT) | payer OTHER, SELFPAY ==
[2019-11-09 10:29] LABS: INR 2.3 (0.9-1.3); Prothrombin Time 26.4 SECONDS (10.1-12.7)
== END ==
PROVIDERS: Visit Provider Student in an Organized Health Care Education/Training Program
DX: Z79.01 Long term (current) use of anticoagulants (principal)
CPT/HCPCS: 85610

== ENCOUNTER → 2019-12-07 07:55 | Outpatient (ROUT) | payer OTHER, SELFPAY ==
[2019-12-07 08:37] LABS: INR 3.2 (0.9-1.3); Prothrombin Time 36.4 SECONDS (10.1-12.7)
== END ==
PROVIDERS: Visit Provider Student in an Organized Health Care Education/Training Program
DX: Z79.01 Long term (current) use of anticoagulants (principal)
CPT/HCPCS: 85610

== ENCOUNTER → 2020-02-04 09:10 | Outpatient (ROUT) | payer OTHER, SELFPAY ==
[2020-02-04 09:41] LABS: INR 3.8 (0.9-1.3); Prothrombin Time 43.3 SECONDS (10.1-12.7)
== END ==
PROVIDERS: Visit Provider Student in an Organized Health Care Education/Training Program
DX: Z79.01 Long term (current) use of anticoagulants (principal)
CPT/HCPCS: 85610

== ENCOUNTER → 2020-02-23 10:00 | Outpatient (ROUT) | payer OTHER, SELFPAY ==
[2020-02-23 10:44] LABS: INR 2.6 (0.9-1.3); Prothrombin Time 29.6 SECONDS (10.1-12.7)
== END ==
PROVIDERS: Visit Provider Student in an Organized Health Care Education/Training Program
DX: Z79.01 Long term (current) use of anticoagulants (principal)
CPT/HCPCS: 85610

== ENCOUNTER → 2020-03-10 10:14 | Outpatient (ROUT) | payer OTHER, SELFPAY ==
[2020-03-10 10:30] LABS: Prothrombin Time 34.1 SECONDS (10.1-12.7)
== END ==
PROVIDERS: Visit Provider Student in an Organized Health Care Education/Training Program
DX: Z79.01 Long term (current) use of anticoagulants (principal)
CPT/HCPCS: 85610

== ENCOUNTER → 2020-03-25 09:19 | Outpatient (ROUT) | payer OTHER, SELFPAY ==
[2020-03-25 09:27] LABS: INR 2.1 (0.9-1.3); Prothrombin Time 24.4 SECONDS (10.1-12.7)
== END ==
PROVIDERS: Visit Provider Student in an Organized Health Care Education/Training Program
DX: Z79.01 Long term (current) use of anticoagulants (principal)
CPT/HCPCS: 85610

== ENCOUNTER → 2020-04-29 09:12 | Outpatient (ROUT) | payer OTHER, SELFPAY ==
[2020-04-29 09:30] LABS: INR 2.1 (0.9-1.3); Prothrombin Time 23.7 SECONDS (10.1-12.7)
== END ==
PROVIDERS: Visit Provider Student in an Organized Health Care Education/Training Program
DX: I48.91 Unspecified atrial fibrillation (principal)
CPT/HCPCS: 85610

== ENCOUNTER → 2020-05-17 09:07 | Outpatient (ROUT) | payer OTHER, SELFPAY ==
[2020-05-17 09:21] LABS: INR 2.9 (0.9-1.3); Prothrombin Time 33.3 SECONDS (10.1-12.7)
== END ==
PROVIDERS: Visit Provider Student in an Organized Health Care Education/Training Program
DX: Z79.01 Long term (current) use of anticoagulants (principal)
CPT/HCPCS: 85610

== ENCOUNTER → 2020-06-07 09:18 | Outpatient (ROUT) | payer OTHER, SELFPAY ==
[2020-06-07 09:26] LABS: INR 2.2 (0.9-1.3); Prothrombin Time 24.9 SECONDS (10.1-12.7)
== END ==
PROVIDERS: Visit Provider Student in an Organized Health Care Education/Training Program
DX: Z79.01 Long term (current) use of anticoagulants (principal)
CPT/HCPCS: 85610

== ENCOUNTER → 2020-07-01 09:40 | Outpatient (ROUT) | payer OTHER, SELFPAY ==
[2020-07-01 09:48] LABS: Prothrombin Time 34.8 SECONDS (10.1-12.7)
== END ==
PROVIDERS: Visit Provider Student in an Organized Health Care Education/Training Program
DX: Z79.01 Long term (current) use of anticoagulants (principal)
CPT/HCPCS: 85610

== ENCOUNTER → 2020-07-19 09:33 | Outpatient (ROUT) | payer OTHER, SELFPAY ==
[2020-07-19 09:40] LABS: Prothrombin Time 22.8 SECONDS (10.1-12.7)
== END ==
PROVIDERS: Visit Provider Student in an Organized Health Care Education/Training Program
DX: Z79.01 Long term (current) use of anticoagulants (principal)
CPT/HCPCS: 85610

== ENCOUNTER → 2020-08-09 09:37 | Outpatient (ROUT) | payer OTHER, SELFPAY ==
[2020-08-09 09:44] LABS: INR 2.6 (0.9-1.3); Prothrombin Time 29.6 SECONDS (10.1-12.7)
== END ==
PROVIDERS: Visit Provider Student in an Organized Health Care Education/Training Program
DX: Z79.01 Long term (current) use of anticoagulants (principal)
CPT/HCPCS: 85610

== ENCOUNTER → 2020-09-06 11:53 | Outpatient (ROUT) | payer OTHER, SELFPAY ==
[2020-09-06 12:25] LABS: INR 2.8 (0.9-1.3); Prothrombin Time 31.7 SECONDS (10.1-12.7)
== END ==
PROVIDERS: Visit Provider Student in an Organized Health Care Education/Training Program
DX: I48.91 Unspecified atrial fibrillation (principal); Z79.01 Long term (current) use of anticoagulants
CPT/HCPCS: 85610

== ENCOUNTER → 2020-10-04 09:50 | Outpatient (ROUT) | payer OTHER, SELFPAY ==
[2020-10-04 10:05] LABS: INR 2.9 (0.9-1.3); Prothrombin Time 33.5 SECONDS (10.1-12.7)
== END ==
PROVIDERS: Visit Provider Student in an Organized Health Care Education/Training Program
DX: Z79.01 Long term (current) use of anticoagulants (principal)
CPT/HCPCS: 85610

== ENCOUNTER → 2020-11-01 10:44 | Outpatient (ROUT) | payer OTHER, SELFPAY ==
[2020-11-01 11:03] LABS: INR 2.6 (0.9-1.3)
== END ==
PROVIDERS: Visit Provider Student in an Organized Health Care Education/Training Program
DX: Z79.01 Long term (current) use of anticoagulants (principal)
CPT/HCPCS: 85610

== ENCOUNTER → 2020-11-29 08:31 | Outpatient (ROUT) | payer OTHER, SELFPAY ==
[2020-11-29 08:37] LABS: INR 2.2 (0.9-1.3); Prothrombin Time 25.5 SECONDS (10.1-12.7)
== END ==
PROVIDERS: Visit Provider Student in an Organized Health Care Education/Training Program
DX: Z79.01 Long term (current) use of anticoagulants (principal)
CPT/HCPCS: 85610

== ENCOUNTER → 2020-12-27 08:37 | Outpatient (ROUT) | payer OTHER, SELFPAY ==
[2020-12-27 08:44] LABS: INR 1.9 (0.9-1.3); Prothrombin Time 22.2 SECONDS (10.1-12.7)
== END ==
PROVIDERS: Visit Provider Student in an Organized Health Care Education/Training Program
DX: Z79.01 Long term (current) use of anticoagulants (principal)
CPT/HCPCS: 85610

== ENCOUNTER → 2021-01-24 10:23 | Outpatient (ROUT) | payer OTHER, SELFPAY ==
[2021-01-24 11:11] LABS: INR 2.9 (0.9-1.3); Prothrombin Time 32.2 SECONDS (10.1-12.7)
== END ==
PROVIDERS: Visit Provider Student in an Organized Health Care Education/Training Program
DX: Z79.01 Long term (current) use of anticoagulants (principal)
CPT/HCPCS: 85610

== ENCOUNTER → 2021-02-21 08:03 | Outpatient (ROUT) | payer OTHER, SELFPAY ==
[2021-02-21 08:14] LABS: INR 2.8 (0.9-1.3); Prothrombin Time 31.4 SECONDS (10.1-12.7)
== END ==
PROVIDERS: Visit Provider Student in an Organized Health Care Education/Training Program
DX: Z79.01 Long term (current) use of anticoagulants (principal)
CPT/HCPCS: 85610

== ENCOUNTER → 2021-03-21 10:25 | Outpatient (ROUT) | payer OTHER, SELFPAY ==
[2021-03-21 10:44] LABS: INR 2.7 (0.9-1.3); Prothrombin Time 30.9 SECONDS (10.1-12.7)
== END ==
PROVIDERS: Visit Provider Student in an Organized Health Care Education/Training Program
DX: Z79.01 Long term (current) use of anticoagulants (principal)
CPT/HCPCS: 85610

== ENCOUNTER → 2021-04-14 09:31 | Outpatient (ROUT) | payer OTHER, SELFPAY ==
[2021-04-14 09:44] LABS: INR 3.3 (0.9-1.3); Prothrombin Time 39.1 SECONDS (10.1-12.7)
== END ==
PROVIDERS: Visit Provider Obstetrics & Gynecology
DX: Z79.01 Long term (current) use of anticoagulants (principal)
CPT/HCPCS: 85610

== ENCOUNTER → 2021-05-26 10:05 | Outpatient (ROUT) | payer OTHER, SELFPAY ==
[2021-05-26 10:27] LABS: INR 2.7 (0.9-1.3); Prothrombin Time 31.7 SECONDS (10.1-12.7)
== END ==
PROVIDERS: Visit Provider Student in an Organized Health Care Education/Training Program
DX: Z79.01 Long term (current) use of anticoagulants (principal)
CPT/HCPCS: 85610

== ENCOUNTER → 2021-06-27 09:01 | Outpatient (ROUT) | payer OTHER, SELFPAY ==
[2021-06-27 09:24] LABS: INR 2.5 (0.9-1.3); Prothrombin Time 28.3 SECONDS (10.1-12.7)
== END ==
PROVIDERS: Visit Provider Student in an Organized Health Care Education/Training Program
DX: Z79.01 Long term (current) use of anticoagulants (principal)
CPT/HCPCS: 85610

== ENCOUNTER → 2021-07-25 08:09 | Outpatient (ROUT) | payer OTHER, SELFPAY ==
[2021-07-25 08:24] LABS: INR 2.4 (0.9-1.3); Prothrombin Time 27.4 SECONDS (10.1-12.7)
== END ==
PROVIDERS: Visit Provider Student in an Organized Health Care Education/Training Program
DX: Z79.1 Long term (current) use of non-steroidal anti-inflammatories (NSAID) (principal)
CPT/HCPCS: 85610

== ENCOUNTER → 2021-08-29 08:24 | Outpatient (ROUT) | payer OTHER, SELFPAY ==
[2021-08-29 08:37] LABS: INR 2.4 (0.9-1.3); Prothrombin Time 27.2 SECONDS (10.1-12.7)
== END ==
PROVIDERS: Visit Provider Student in an Organized Health Care Education/Training Program
DX: Z79.01 Long term (current) use of anticoagulants (principal)
CPT/HCPCS: 85610

== ENCOUNTER → 2021-10-03 11:01 | Outpatient (ROUT) | payer OTHER, SELFPAY ==
[2021-10-03 11:16] LABS: INR 3.1 (0.9-1.3)
== END ==
PROVIDERS: Visit Provider Student in an Organized Health Care Education/Training Program
DX: I48.91 Unspecified atrial fibrillation (principal)
CPT/HCPCS: 85610

== ENCOUNTER → 2021-11-14 08:01 | Outpatient (ROUT) | payer OTHER, SELFPAY ==
[2021-11-14 08:15] LABS: INR 2.6 (0.9-1.3)
== END ==
PROVIDERS: Visit Provider Student in an Organized Health Care Education/Training Program
DX: I48.91 Unspecified atrial fibrillation (principal)
CPT/HCPCS: 85610

== ENCOUNTER → 2021-12-04 14:42 | Outpatient (ROUT) | payer OTHER, SELFPAY ==
[2021-12-04 15:04] LABS: INR 2.1 (0.9-1.3); Prothrombin Time 24.6 SECONDS (10.1-12.7)
== END ==
PROVIDERS: Visit Provider Ophthalmology
DX: Z79.01 Long term (current) use of anticoagulants (principal)
CPT/HCPCS: 85610

== ENCOUNTER → 2022-01-15 15:22 | Outpatient (ROUT) | payer OTHER, SELFPAY ==
[2022-01-15 15:56] LABS: INR 1.8 (0.9-1.3); Prothrombin Time 20.7 SECONDS (10.1-12.7)
== END ==
PROVIDERS: Visit Provider Ophthalmology
DX: Z79.01 Long term (current) use of anticoagulants (principal)
CPT/HCPCS: 85610

== ENCOUNTER → 2022-03-26 08:03 | Outpatient (ROUT) | payer OTHER, SELFPAY ==
[2022-03-26 08:13] LABS: INR 2.6 (0.9-1.3); Prothrombin Time 29.4 SECONDS (10.1-12.7)
== END ==
PROVIDERS: Visit Provider Student in an Organized Health Care Education/Training Program
DX: Z79.01 Long term (current) use of anticoagulants (principal)
CPT/HCPCS: 85610

== ENCOUNTER → 2022-04-24 09:47 | Outpatient (ROUT) | payer OTHER, SELFPAY ==
[2022-04-24 10:13] LABS: INR 2.4 (0.9-1.3); Prothrombin Time 27.9 SECONDS (10.1-12.7)
== END ==
PROVIDERS: Visit Provider Family Medicine
DX: Z79.01 Long term (current) use of anticoagulants (principal)
CPT/HCPCS: 85610

== ENCOUNTER → 2022-05-18 08:52 | Outpatient (ROUT) | payer OTHER, SELFPAY ==
[2022-05-18 09:09] LABS: INR 2.5 (0.9-1.3); Prothrombin Time 28.8 SECONDS (10.1-12.7)
== END ==
PROVIDERS: Visit Provider Student in an Organized Health Care Education/Training Program
DX: Z79.01 Long term (current) use of anticoagulants (principal)
CPT/HCPCS: 85610

== ENCOUNTER → 2022-06-29 10:58 | Outpatient (ROUT) | payer OTHER, SELFPAY ==
[2022-06-29 11:12] LABS: Prothrombin Time 46.2 SECONDS (10.1-12.7)
== END ==
PROVIDERS: PCP Internal Medicine; Visit Provider Internal Medicine
DX: Z79.01 Long term (current) use of anticoagulants (principal)
CPT/HCPCS: 85610

== ENCOUNTER → 2022-07-18 08:39 | Outpatient (ROUT) | payer OTHER, SELFPAY ==
[2022-07-18 08:58] LABS: INR 2.3 (0.9-1.3); Prothrombin Time 26.4 SECONDS (10.1-12.7)
== END ==
PROVIDERS: PCP Internal Medicine; Visit Provider Family Medicine
DX: Z79.01 Long term (current) use of anticoagulants (principal)
CPT/HCPCS: 85610

== ENCOUNTER → 2022-08-01 08:22 | Outpatient (ROUT) | payer OTHER, SELFPAY ==
[2022-08-01 08:29] LABS: INR 1.8 (0.9-1.3)
== END ==
PROVIDERS: PCP Internal Medicine; Visit Provider Student in an Organized Health Care Education/Training Program
DX: Z79.01 Long term (current) use of anticoagulants (principal)
CPT/HCPCS: 85610

== ENCOUNTER → 2022-08-16 08:38 | Outpatient (ROUT) | payer OTHER, SELFPAY ==
[2022-08-16 08:59] LABS: INR 1.5 (0.9-1.3); Prothrombin Time 17.3 SECONDS (10.1-12.7)
== END ==
PROVIDERS: PCP Internal Medicine; Visit Provider Internal Medicine
DX: Z79.01 Long term (current) use of anticoagulants (principal)
CPT/HCPCS: 85610

== ENCOUNTER → 2022-08-21 16:41 | Outpatient (CLI) | payer OTHER, SELFPAY ==
--- NOTE | 2022-08-21 16:49 | DI.RAD.S_ITS ---
PROCEDURE: XR RIBS LT MIN 3V W CXR1V INDICATIONS: LT. RIB PAIN TECHNIQUE: 2 views of the left ribs were acquired, along with a single view chest. COMPARISON: None. FINDINGS: Surgical changes and devices: None. Bones and chest wall: Nondisplaced left 10th rib fracture noted posterior laterally. Lungs and pleura: No pleural effusions or pneumothorax. Lungs appear clear. Mediastinum: Mediastinal contours appear normal. Heart size is normal. IMPRESSION: Nondisplaced left 10th rib fracture . No pneumothorax. Approved by: Hunter Thornton M.D. on 08/21/2022 at 16:27
== END ==
PROVIDERS: PCP Internal Medicine; Referring Provider Family Medicine; Visit Provider Family Medicine
DX: S22.32XA Fracture of one rib, left side, initial encounter for closed fracture (principal); R07.81 Pleurodynia
CPT/HCPCS: 71101

== ENCOUNTER → 2022-09-10 17:14 | Outpatient (CLI) | payer OTHER, SELFPAY ==
[2022-09-10 18:26] LABS: Add Manual Diff / Slide Review NO; Basophils Absolute Auto 100 /uL (0-100); Basophils Percent Auto 0.9 % (0-2); Eosinophils Absolute Auto 400 /uL (0-450); Eosinophils Percent Auto 4.2 % (2-4); Hematocrit 50.2 % (41-53); Hemoglobin 17.1 g/dL (13.5-17.5); Lymphocytes Absolute Auto 1700 /uL (1100-4500); Lymphocytes Percent Auto 17.9 % (25-40); Mean Corpuscular Hemoglobin 29.6 PG (26-34); Mean Corpuscular Volume 87.1 fL (80-100); Monocytes Absolute Auto 1000 /uL (0-900); Monocytes Percent Auto 10.5 % (3-14); Neutrophils Absolute Auto 6400 /uL (1500-7000); Neutrophils Percent Auto 66.5 % (50-75); Platelet Count 206 X10^3/uL (150-400); Red Blood Cell Count 5.77 X10^6/uL (4.5-5.9); Red Cell Distribution Width 14.4 % (11.6-14.8); White Blood Cell Count 9.7 X10^3/uL (4.5-11.0)
[2022-09-10 18:38] LABS: HEMOLYSIS < 15 (0-50); Sodium 132 mmol/L (137-145)
[2022-09-10 18:40] LABS: Alanine Aminotransferase 26 IU/L (<50); Albumin 4.3 g/dL (3.5-5.0); Albumin Globulin Ratio 1.1 (1.0-2.8); Alkaline Phosphatase 81 U/L (38-126); Aspartate Aminotransferase 37 IU/L (17-59); BUN Creatinine Ratio 19.5 (6-22); Blood Urea Nitrogen 23 mg/dL (9-20); C-Reactive Protein Quant 1.4 mg/dL (<1.0); Carbon Dioxide 27 mmol/L (22-32); Chloride 95 mmol/L (98-107); Estimated Glomerular Filt Rate > 60 mL/min (>60); Globulin 3.8 g/dL (1.7-4.1); Glucose 101 mg/dL (80-110); Potassium 4.5 mmol/L (3.4-5.1); Total Protein 8.1 g/dL (6.3-8.2)
[2022-09-10 19:07] LABS: Prostate Specific Antigen 0.399 ng/mL (0.10-4.00)
== END ==
PROVIDERS: PCP Internal Medicine; Referring Provider Family Medicine; Visit Provider Family Medicine
DX: N50.812 Left testicular pain (principal); I25.10 Atherosclerotic heart disease of native coronary artery without angina pectoris; I10 Essential (primary) hypertension
CPT/HCPCS: 36415; 80053; 84153; 85025; 86140

== ENCOUNTER → 2022-09-11 11:36 | Outpatient (CLI) | payer OTHER, SELFPAY ==
--- NOTE | 2022-09-11 | DI.US.S_ITS ---
PROCEDURE: US SCROTUM INDICATIONS: LEFT SCROTAL PAIN TECHNIQUE: Real-time scanning was performed of the scrotum and testicles, with image documentation. Color and pulse Doppler interrogation was performed of both testicles. COMPARISON: US, TESTICLE IMAGING, 08/21/2016, 13:31. FINDINGS: Right: Testicle is normal in size at 3.5 x 2.3 x 3.2 cm, and homogenous in echotexture. Epididymis is normal in overall size and morphology. Small hydrocele. No varicocele. Overlying scrotal skin is normal in thickness. Left: Testicle is normal in size at 3.0 x 2.4 x 2.8 cm, and homogeneous in echotexture. Mild heterogeneous appearance of the left epididymis with mild vascularity. Small hydrocele. No varicocele. Overlying scrotal skin is normal in thickness. Doppler: Color and pulse Doppler demonstrate normal and symmetric arterial flow in both testicles. IMPRESSION: 1. Normal appearance of the testicles bilaterally. 2. Mild heterogeneity of the left epididymis with mild increased vascularity which can be associated with epididymitis. Correlate clinically. 3. Small bilateral hydroceles. Dictated by: [facility] Interpreted: Ej Mustafa MD on 09/11/2022 at 13:19 Transcribed by: LATOYA on 09/11/2022 at 13:21 Approved by: Ej Mustafa M.D. on 09/11/2022 at 13:37
== END ==
PROVIDERS: PCP Internal Medicine; Referring Provider Internal Medicine; Visit Provider Internal Medicine
DX: N43.3 Hydrocele, unspecified (principal); N50.812 Left testicular pain
CPT/HCPCS: 76870

== ENCOUNTER → 2022-10-06 13:04 | Outpatient (CLI) | payer OTHER, SELFPAY ==
--- NOTE | 2022-10-06 13:07 | DI.MRI.S_ITS ---
PROCEDURE: MR HEAD/BRAIN W CON INDICATIONS: Mild cognitive impairment TECHNIQUE: . After the administration of contrast, axial and coronal and sagittal VIBE with fat saturation through the brain. COMPARISON: None. FINDINGS: Image quality: Excellent. Markedly limited exam secondary to postcontrast only. Vascular structures are opacified without visualized occlusions. No abnormally enhancing masses. There appears to be white matter changes. However, these cannot be evaluated given lack of T2/FLAIR sequences. Foci of nonenhancing decreased T1 signal is noted in the right subinsular region as well as luis m/peduncles, also nonspecific and cannot be evaluated given lack of T2/FLAIR sequences. Given lack of diffusion sequence, there is no evaluation for subacute ischemia. Orbits and orbital musculature are symmetrical. IMPRESSION: Markedly limited exam. Recommend repeat imaging with inclusion of full noncontrast series. No areas of abnormal enhancement. Dictated by: Mary Alice Murray M.D. on 10/08/2022 at 10:26 Approved by: Mary Alice Murray M.D. on 10/08/2022 at 10:34
== END ==
PROVIDERS: PCP Internal Medicine; Referring Provider Family Medicine; Visit Provider Family Medicine
DX: G25.0 Essential tremor (principal); G31.84 Mild cognitive impairment of uncertain or unknown etiology
CPT/HCPCS: 70552; A9579

== ENCOUNTER 2022-10-07 08:08 | Emergency (ER) | payer OTHER, SELFPAY ==
[2022-10-07 08:21] VITALS: BP 164/79; PULSE 80; RESP 24; TEMP 36.4; O2SAT 99; BMI 25.8
[2022-10-07] MEDS: OXYMETAZOLINE NASAL SPRAY 15 ML 2 SPRAYS NASAL (08:34)
[2022-10-07 11:40] VITALS: BP 158/83; PULSE 68; RESP 19; TEMP 36.3; O2SAT 98
[2022-10-07 12:35] VITALS: BP 160/74; PULSE 76; RESP 16; O2SAT 97
--- NOTE | 2022-10-07 13:03 | ED.EPISTAXIS ---
HPI - Epistaxis <Trudy Farah, [facility] - Last Filed: 10/07/22 13:19> General Chief complaint: Nasal Problem Stated complaint: nose bleed over 30 min Time Seen by Provider: 10/07/22 08:28 Source: patient Mode of arrival: Ambulatory History of Present Illness HPI Narrative: This is an 82-year-old gentleman who presents to the emergency department with what he describes as the worst nosebleed he is had in some time and he states that he is familiar with nosebleeds especially over the last 2 months. Patient was recently switched from warfarin 1 month ago to Eliquis, states that he is had near daily epistaxis episodes which he has been able to resolve without holding for too long. He states this morning he was not as brian and had blood pouring out of his nose, he denies it going down his throat. He was waiting in the waiting room with a clamp on his nose with Afrin for approximately 2 hours. During my history and exam, we took off the nasal clamp and he did not have bleeding. He was able to breathe through his nose. He denies recent illness, but endorses feeling congestion over the last few days. He denies fever, chills but has had a few episodes of sneezing while sitting here. He states that his blood pressure has been under control and nothing else is out of the ordinary. He states is bleeding from the right naris and that is typically where it bleeds from. Related Data Home Medications Medication Instructions Recorded Confirmed aspirin 81 mg tablet,delayed 81 mg PO DAILY ##0 03/15/11 04/22/18 release CA PANTOTHENATE/FOLIC ACID/VIT 1 tab PO QDAY ##0 05/18/13 04/22/18 (MULTIVITAMIN) Lanolin/Mineral Oil/Petrolat 30 ml OP QDAY ##0 05/18/13 04/22/18 (ARTIFICIAL TEARS) oxymetazoline 0.05 % nasal spray 1 spray intranasal QDAY ##0 05/18/13 04/22/18 (Afrin (oxymetazoline)) [CRANBERRY] 300 mg PO QDAY ##0 07/01/13 04/22/18 cholecalciferol (vitamin D3) 25 1,000 unit PO DAILY 04/08/18 04/22/18 mcg (1,000 unit) capsule (Vitamin D3) colchicine 0.6 mg tablet 0.6 mg PO DAILY 04/08/18 04/22/18 cyanocobalamin (vitamin B-12) 1,000 mcg PO DAILY 04/08/18 04/22/18 1,000 mcg tablet (Vitamin B-12) docusate sodium 50 mg capsule 1 tab PO DAILY 04/08/18 04/22/18 (Stool Softener) latanoprost 0.005 % eye drops 1 drp EYE-BOTH DAILY 04/08/18 04/22/18 levothyroxine 75 mcg tablet 75 mcg PO DAILY 04/08/18 04/22/18 (Synthroid) metoprolol succinate 25 mg 25 mg PO DAILY 04/08/18 04/22/18 tablet,extended release 24 hr omeprazole 20 mg capsule,delayed See Rx Instructions .Route .COMPLEX 04/08/18 04/22/18 release simvastatin 10 mg tablet 10 mg PO QPM 04/08/18 04/22/18 warfarin 2.5 mg tablet See Rx Instructions .Route .COMPLEX 04/08/18 04/22/18 warfarin 5 mg tablet See Rx Instructions .Route .COMPLEX 04/08/18 04/22/18 Previous Rx's Medication Instructions Recorded nitroglycerin 0.4 mg sublingual 0.4 mg sublingual PRN ##25 10/20/12 tablet (Nitrostat) ondansetron 4 mg disintegrating 4 mg PO TID PRN nausea and 08/05/18 tablet vomiting #6 tabs Allergies Allergy/AdvReac Type Severity Reaction Status Date / Time venom-honey bee Allergy Severe SOB Verified 10/07/22 08:21 [bee venom (honey bee)] amoxicillin Allergy Mild AGITATION,SKIN Verified 10/07/22 08:21 CRAWL ciprofloxacin Allergy Mild JOINT Verified 10/07/22 08:21 SWELLING, WHITE BM, RED RASH Penicillins Allergy Mild RASH Verified 10/07/22 08:21 sulfamethoxazole Allergy Unknown AGITATION,SKIN Verified 10/07/22 08:21 [From ] CRAWL trimethoprim [From ] Allergy Unknown AGITATION,SKIN Verified 10/07/22 08:21 CRAWL Review of Systems <Trudy Farah, [employer] - Last Filed: 10/07/22 13:19> Review of Systems Narrative: Review of systems is negative for acute abnormalities unless otherwise noted in HPI Patient History <YUMIKO Conner - Last Filed: 10/07/22 13:19> Social History household members: spouse Smoking Status: Never smoker Smoking Status: Never smoker alcohol intake frequency: a few times a week Substance Use Type: does not use Exam <YUMIKO Conner - Last Filed: 10/07/22 13:19> Initial Vital Signs Initial Vital Signs: Vital Signs Temperature 97.6 F 10/07/22 08:21 Pulse Rate 80 10/07/22 08:21 Respiratory Rate 24 10/07/22 08:21 Blood Pressure 164/79 H 10/07/22 08:21 Pulse Oximetry 99 10/07/22 08:21 Oxygen Delivery Method 10/07/22 08:21 HENMT Head: normal to inspection, normocephalic and other (Mild congestion) Nose: external nose normal, nasal mucous membranes and turbinates normal, epistaxis (Right right naris anterior there is a small vessel likely location of bleed) and other (No bleeding at this time) HENMT Other: Without bleeding down the throat, <Marimar Godwin DO - Last Filed: 10/08/22 12:44> Initial Vital Signs Initial Vital Signs: Vital Signs Temperature 97.6 F 10/07/22 08:21 Pulse Rate 80 10/07/22 08:21 Respiratory Rate 24 10/07/22 08:21 Blood Pressure 164/79 H 10/07/22 08:21 Pulse Oximetry 99 10/07/22 08:21 Oxygen Delivery Method 10/07/22 08:21 Course <YUMIKO Conner - Last Filed: 10/07/22 13:19> Orders Ordered: Discontinued Medications Oxymetazoline HCl (Oxymetazoline Nasal T[place] 15 Ml) 2 sprays NASAL NOW ONE Stop: 10/07/22 08:29 Last Admin: 10/07/22 08:34 Dose: 2 sprays Documented By: NR Vital Signs Vital signs: Vital Signs - 8 hr 10/07/22 08:21 10/07/22 11:40 10/07/22 12:35 Temperature 97.6 F 97.4 F L Pulse Rate 80 68 76 Respiratory Rate 24 19 16 Blood Pressure 164/79 H 158/83 H 160/74 H Pulse Oximetry 99 98 97 Oxygen Delivery Method Room Air Room Air Room Air <Marimar Godwin DO - Last Filed: 10/08/22 12:44> Orders Ordered: Discontinued Medications Oxymetazoline HCl (Oxymetazoline Nasal [place] 15 Ml) 2 sprays NASAL NOW ONE Stop: 10/07/22 08:29 Last Admin: 10/07/22 08:34 Dose: 2 sprays Documented By: NR Vital Signs Vital signs: Vital Signs - 8 hr 10/07/22 08:21 10/07/22 11:40 10/07/22 12:35 Temperature 97.6 F 97.4 F L Pulse Rate 80 68 76 Respiratory Rate 24 19 16 Blood Pressure 164/79 H 158/83 H 160/74 H Pulse Oximetry 99 98 97 Oxygen Delivery Method Room Air Room Air Room Air MDM - Epistaxis <YUMIKO Conner - Last Filed: 10/07/22 13:19> MDM Narrative Medical decision making narrative: This is a pleasant 82-year-old gentleman who presents to the emergency department this morning for epistaxis from the right naris which took proximally 30 minutes with clamping to stopped bleeding prior to arrival. When he arrived, he blew out the clots in it started bleeding again, the RN sprayed Afrin and nasal clamp was placed, he waited in the waiting room for approximately 2 hours, during my exam, he blew his nose, bilateral nares were patent, no bleeding, there is a small anterior vessel in the right septum which is prominent and likely where he was bleeding from, since he had improvements and no current bleeding, he was sent home with discharge instructions, a clamp, Afrin, and has been using Vaseline at baseline. His warfarin was recently switched to Eliquis 1 month ago he is had an epistaxis problem. He was given contact information for Dr. Kelly, I will cc this note to Dr. Sutherland his PCP in case he needs a prior authorization to see Dr. Kelly for follow-up. I encouraged nasal saline sprays, humidifier, and follow-up with ENT. Patient is appropriate and amenable to discharge home. Vital signs are stable on repeat examination is unremarkable. Patient has been informed of results. Patient has been given strict return to ER precautions for any new or worsening symptoms. Patient understands to follow up closely with outpatient providers as instructed. Patient understands plan and agrees to discharge home. All questions and concerns answered at this time. Discharge Plan Departure Patient Disposition: Home Clinical Impression: Epistaxis Instructions: DI for Nosebleed Activity Restrictions/Additional Instructions: *You have been diagnosed with a difficult to control nosebleed, could be due to increased congestion. Please start taking cetirizine/Zyrtec 10-20 mg at night, use saline nasal spray each day to keep your nasal mucosa moist. Please schedule an appointment with Dr. Kelly, if he needs a referral, okay to ask Koko, I have cc'd her with this note. When seen Dr. Kelly mentioned that you had frequent nosebleeds for over 2 months. Please stay hydrated, a humidifier may be helpful, avoid using Afrin for over 24 or 48 hours straight. I hope you have a nice day. *What to do: *Please continue to take your regular medications as directed. [ ] New medication prescriptions sent to your pharmacy: [ ] [ ] New medication written as a paper prescription [x ] No new medications given *Please follow up with your primary care provider in 2-3 days, call for an appointment. Let them know you were seen in the Emergency Department and that we asked that you be seen for follow-up. We will electronically transmit a record of today's note if your PCP is in our system *If you do not have a primary care provider please contact [phone] to establish care with one of [facility] primary care providers. *Return to Emergency Department if you should have any new, worsening, or concerning symptoms, such as [fever greater than 101F, chills, worsening pain, persistent vomiting or other bothersome symptoms]. Prescriptions: No Action aspirin 81 mg Tablet,Delayed Release (Dr/Ec) 81 mg PO DAILY Qty: 0 nitroglycerin [Nitrostat] 0.4 MG tablet, sublingual 0.4 mg Sublingual PRN Qty: 25 1RF CA PANTOTHENATE/FOLIC ACID/VIT (MULTIVITAMIN) 1 tab PO QDAY Qty: 0 Lanolin/Mineral Oil/Petrolat (ARTIFICIAL TEARS) 30 ml OP QDAY Qty: 0 oxymetazoline [Afrin (oxymetazoline)] 0.05 % spray,non-aerosol 1 spray Intranasal QDAY Qty: 0 [CRANBERRY] 300 mg PO QDAY Qty: 0 docusate sodium [Stool Softener] 50 mg Capsule 1 tab PO DAILY latanoprost 0.005 % Drops 1 drp EYE-BOTH DAILY simvastatin 10 mg Tablet 10 mg PO QPM cyanocobalamin (vitamin B-12) [Vitamin B-12] 1,000 mcg Tablet 1,000 mcg PO DAILY warfarin 2.5 mg Tablet See Rx Instructions .ROUTE .COMPLEX Rx Instructions: 2.5 mg orally Mon, Wed, Fri levothyroxine [Synthroid] 75 mcg Tablet 75 mcg PO DAILY warfarin 5 mg Tablet See Rx Instructions .ROUTE .COMPLEX Rx Instructions: 5 mg orally Sat, Sat, , omeprazole 20 mg Capsule,Delayed Release(Dr/Ec) See Rx Instructions .ROUTE .COMPLEX Rx Instructions: 20 mg orally Sat and Wed metoprolol succinate 25 mg Tablet Extended Release 24 Hr 25 mg PO DAILY colchicine 0.6 mg Tablet 0.6 mg PO DAILY cholecalciferol (vitamin D3) [Vitamin D3] 1,000 unit Capsule 1,000 unit PO DAILY ondansetron 4 mg tablet,disintegrating 4 mg PO TID PRN (Reason: nausea and vomiting) Qty: 6 0RF Referrals: Rios Kelly MD [Physician] - Yoli Rossi ARNP [Primary Care Provider] - Leann Sutherland MD [Physician] - Visit Report Forms: Patient Portal/API <Marimar Godwin DO - Last Filed: 10/08/22 12:44> Cosign ED Attending Jarad Attestation: I was immediately available in the department for consultation. Documentation has been reviewed.
== END 2022-10-07 12:43 | disposition home or self-care (01) ==
PROVIDERS: Emergency Provider Nurse Practitioner Critical Care Medicine; PCP Internal Medicine
DX: R04.0 Epistaxis (principal); Z79.01 Long term (current) use of anticoagulants; Z79.899 Other long term (current) drug therapy
CPT/HCPCS: 99282; A9270

== ENCOUNTER → 2022-10-19 07:05 | Outpatient (CLI) | payer OTHER, SELFPAY ==
[2022-10-19 10:10] LABS: Add Manual Diff / Slide Review NO; Basophils Absolute Auto 100 /uL (0-100); Basophils Percent Auto 0.6 % (0-2); Eosinophils Absolute Auto 500 /uL (0-450); Hematocrit 51.2 % (41-53); Hemoglobin 17.2 g/dL (13.5-17.5); Lymphocytes Absolute Auto 1500 /uL (1100-4500); Lymphocytes Percent Auto 15.4 % (25-40); Mean Corpuscular HGB Conc 33.6 % (30-36); Mean Corpuscular Hemoglobin 29.7 PG (26-34); Mean Corpuscular Volume 88.5 fL (80-100); Monocytes Absolute Auto 800 /uL (0-900); Monocytes Percent Auto 8.8 % (3-14); Neutrophils Absolute Auto 6700 /uL (1500-7000); Neutrophils Percent Auto 70.2 % (50-75); Platelet Count 219 X10^3/uL (150-400); Red Blood Cell Count 5.78 X10^6/uL (4.5-5.9); Red Cell Distribution Width 14.8 % (11.6-14.8); White Blood Cell Count 9.5 X10^3/uL (4.5-11.0)
[2022-10-19 11:16] LABS: Alanine Aminotransferase 24 IU/L (<50); Albumin 4.1 g/dL (3.5-5.0); Albumin Globulin Ratio 1.3 (1.0-2.8); Alkaline Phosphatase 70 U/L (38-126); Aspartate Aminotransferase 26 IU/L (17-59); BUN Creatinine Ratio 17.9 (6-22); Bilirubin Total 1.1 mg/dL (0.2-1.3); Blood Urea Nitrogen 20 mg/dL (9-20); Calcium 8.8 mg/dL (8.4-10.2); Carbon Dioxide 28 mmol/L (22-32); Chloride 97 mmol/L (98-107); Estimated Glomerular Filt Rate > 60 mL/min (>60); Globulin 3.1 g/dL (1.7-4.1); Glucose 91 mg/dL (80-110); Potassium 4.5 mmol/L (3.4-5.1); Sodium 137 mmol/L (137-145); Total Protein 7.2 g/dL (6.3-8.2)
[2022-10-19 11:21] LABS: HEMOLYSIS < 15 (0-50)
[2022-10-19 12:12] LABS: C-Reactive Protein Quant < 0.5 mg/dL (<1.0)
[2022-10-19 12:23] LABS: Rheumatoid Factor < 8.6 IU/mL (<12.0)
[2022-10-19 12:32] LABS: Erythrocyte Sedimentation Rate 1 MM/HR (0-15)
[2022-10-21 18:11] LABS: CCP Antibodies IgG/IgA 3 units (0-19)
[2022-10-23 13:17] LABS: ANA Screen, IFA Negative (.)
== END ==
PROVIDERS: PCP Family Medicine; Referring Provider Family Medicine; Visit Provider Family Medicine
DX: I10 Essential (primary) hypertension (principal); L95.9 Vasculitis limited to the skin, unspecified; I48.91 Unspecified atrial fibrillation; E03.9 Hypothyroidism, unspecified
CPT/HCPCS: 36415; 80053; 85025; 85651; 86038; 86140; 86200; 86430

== ENCOUNTER → 2023-12-02 12:40 | Outpatient (CLI) | payer OTHER, SELFPAY ==
--- NOTE | 2023-12-02 12:43 | DI.RAD.S_ITS ---
PROCEDURE: XR FOOT RT MIN 3V INDICATIONS: ANKLE PAIN TECHNIQUE: 3 views of the foot were acquired. COMPARISON: None. FINDINGS: Bones: No fractures or dislocations. No suspicious bony lesions. Calcaneal spurring. Degenerative joint disease, most pronounced at the 1st metatarsal sesamoid joint. Bony erosion of the 1st metatarsal head. Soft tissues: No tibiotalar joint effusion. Achilles tendon appears normal. IMPRESSION: 1. No acute bony abnormality. 2. 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 3. Bony erosion of the 1st metatarsal head, suggesting inflammatory arthritis. Dictated by: Karen Arrington M.D. on 12/03/2023 at 8:07 Approved by: Karen Arrington M.D. on 12/03/2023 at 8:10
--- NOTE | 2023-12-02 12:43 | DI.RAD.S_ITS ---
PROCEDURE: XR ANKLE RT MIN 3V INDICATIONS: ANKLE PAIN TECHNIQUE: 3 views of the ankle were acquired. COMPARISON: [facility], , XR FOOT RT MIN 3V, 12/02/2023, 13:06. FINDINGS: Bones: No fractures or dislocations. Ankle mortise is normally aligned. No suspicious bony lesions. Mild osteoarthritic changes. Soft tissues: No tibiotalar joint effusion. Achilles tendon appears normal. Vascular calcifications consistent with atherosclerosis. IMPRESSION: 1. No acute bony abnormality or significant effusion. 2. Mild osteoarthritis. Dictated by: Karen Arrington M.D. on 12/03/2023 at 8:06 Approved by: Karen Arrington M.D. on 12/03/2023 at 8:07
== END ==
PROVIDERS: PCP Family Medicine; Referring Provider Family Medicine; Visit Provider Family Medicine
DX: M19.071 Primary osteoarthritis, right ankle and foot (principal); M85.871 Other specified disorders of bone density and structure, right ankle and foot; M25.571 Pain in right ankle and joints of right foot; G89.29 Other chronic pain
CPT/HCPCS: 73610; 73630

== ENCOUNTER → 2023-12-11 16:53 | Outpatient (CLI) | payer OTHER, SELFPAY ==
--- NOTE | 2023-12-11 16:57 | DI.US.S_ITS ---
PROCEDURE: US PERIPH VENOUS LOW EXTREM RT INDICATIONS: FOOT ACHE TECHNIQUE: Real-time imaging, as well as color and pulse Doppler interrogation, were performed of the lower extremity deep veins from the inguinal ligament to the popliteal fossa, with documentation of the visualized calf veins. COMPARISON: None. FINDINGS: The common femoral, femoral, popliteal, and the visualized calf veins are normally compressible, and free of intraluminal thrombus. Color and pulse Doppler demonstrate normal phasic intraluminal flow. There is normal augmentation response to distal compression maneuver. IMPRESSION: No findings of lower extremity deep venous thrombosis. Dictated by: Mitchell Long M.D. on 12/11/2023 at 18:10 Approved by: Mitchell Long M.D. on 12/11/2023 at 18:11
== END ==
LOC: US 16:54
PROVIDERS: PCP Family Medicine; Referring Provider Family Medicine; Visit Provider Family Medicine
DX: R60.0 Localized edema (principal)
CPT/HCPCS: 93971

== ENCOUNTER 2024-01-13 10:18 | Emergency (ER) | payer OTHER, SELFPAY ==
[2024-01-13 10:28] VITALS: BP 144/85; PULSE 66; RESP 18; TEMP 36.4; O2SAT 99; BMI 25.8
--- NOTE | 2024-01-13 10:31 | DI.CT.S_ITS ---
PROCEDURE: CT CERVICAL SPINE WO CON INDICATIONS: fall, bruising, hit head on eliquis TECHNIQUE: Noncontrast 3 mm thick sections acquired from the skull base to the T4 level. Sagittal and coronal reformats were then constructed. For radiation dose reduction, the following was used: automated exposure control, adjustment of mA and/or kV according to patient size. COMPARISON: None. FINDINGS: Image quality: Excellent. Bones: No fractures or dislocations. Visualized superior ribs are intact. Severe cervical spondylosis. Multilevel facet arthropathy. Multilevel uncovertebral joint hypertrophy. Multilevel bony foraminal narrowing. Soft tissues: Prevertebral soft tissues are normal in thickness. No paravertebral hematomas. No apical pneumothoraces. IMPRESSION: 1. No acute fracture or dislocation. 2. Cervical spondylosis. Dictated by: Geovanni Morales M.D. on 01/13/2024 at 10:56 Approved by: Geovanni Morales M.D. on 01/13/2024 at 10:58
--- NOTE | 2024-01-13 10:31 | DI.CT.S_ITS ---
PROCEDURE: CT HEAD/BRAIN WO CON INDICATIONS: fall, bruising, hit head on eliquis TECHNIQUE: Noncontrast 4.5 mm thick angled axial sections acquired from the foramen magnum to the vertex, with coronal and sagittal reformats. For radiation dose reduction, the following was used: automated exposure control, adjustment of mA and/or kV according to patient size. COMPARISON: None. FINDINGS: Image quality: Diagnostic. CSF spaces: Basal cisterns are patent. No extra-axial fluid collections. The ventricles are symmetric in size and shape. Brain: No intracranial bleeds or masses. There is cerebral volume loss for age, with resultant ventricular and sulcal prominence. There are age-appropriate periventricular and deep white matter chronic small vessel ischemic changes. There is intracranial internal carotid artery atherosclerosis. Skull and face: Calvarium and visualized facial bones appear intact, without suspicious lesions. Sinuses: Visualized sinuses and mastoids are clear. IMPRESSION: No acute intracranial pathology. Dictated by: Geovanni Morales M.D. on 01/13/2024 at 10:59 Approved by: Geovanni Morales M.D. on 01/13/2024 at 11:00
--- NOTE | 2024-01-13 10:31 | ED.FALL ---
HPI - Fall General Chief Complaint: Fall Stated Complaint: fall, eye injury, per pt on blood thinners Time Seen by Provider: 01/13/24 10:31 Source: patient Mode of arrival: Ambulatory Limitations: no limitations History of Present Illness HPI Narrative: 83-year-old male on [facility] who had a ground level fall on Saturday, patient states that he was in a building that had very awkwardly out tripped and fell forward striking the left upper brow. He had an abrasion and developed some bruising from the area but states no other injuries. Patient went to follow up today with primary care and was told to be evaluated with head CT here in the department. He denies any persistent headaches, did not have any loss of consciousness. Denies any neck or back pain, no chest pain or shortness of breath. No numbness tingling or weakness. No nausea or vomiting. No alterations in mental status. Patient has been mildly constipated. He states tetanus is up-to-date. He is accompanied by his who witnessed fall and states he was normal afterwards. Related Data Home Medications Medication Instructions Recorded Confirmed aspirin 81 mg tablet,delayed 81 mg PO DAILY ##0 03/15/11 04/22/18 release CA PANTOTHENATE/FOLIC ACID/VIT 1 tab PO QDAY ##0 05/18/13 04/22/18 (MULTIVITAMIN) Lanolin/Mineral Oil/Petrolat 30 ml OP QDAY ##0 05/18/13 04/22/18 (ARTIFICIAL TEARS) oxymetazoline 0.05 % nasal spray 1 spray intranasal QDAY ##0 05/18/13 04/22/18 (Afrin (oxymetazoline)) [CRANBERRY] 300 mg PO QDAY ##0 07/01/13 04/22/18 cholecalciferol (vitamin D3) 25 1,000 unit PO DAILY 04/08/18 04/22/18 mcg (1,000 unit) capsule (Vitamin D3) colchicine 0.6 mg tablet 0.6 mg PO DAILY 04/08/18 04/22/18 cyanocobalamin (vitamin B-12) 1,000 mcg PO DAILY 04/08/18 04/22/18 1,000 mcg tablet (Vitamin B-12) docusate sodium 50 mg capsule 1 tab PO DAILY 04/08/18 04/22/18 (Stool Softener) latanoprost 0.005 % eye drops 1 drp EYE-BOTH DAILY 04/08/18 04/22/18 levothyroxine 75 mcg tablet 75 mcg PO DAILY 04/08/18 04/22/18 (Synthroid) metoprolol succinate 25 mg 25 mg PO DAILY 04/08/18 04/22/18 tablet,extended release 24 hr omeprazole 20 mg capsule,delayed See Rx Instructions .Route .COMPLEX 04/08/18 04/22/18 release simvastatin 10 mg tablet 10 mg PO QPM 04/08/18 04/22/18 warfarin 2.5 mg tablet See Rx Instructions .Route .COMPLEX 04/08/18 04/22/18 warfarin 5 mg tablet See Rx Instructions .Route .COMPLEX 04/08/18 04/22/18 Previous Rx's Medication Instructions Recorded nitroglycerin 0.4 mg sublingual 0.4 mg sublingual PRN ##25 10/20/12 tablet (Nitrostat) ondansetron 4 mg disintegrating 4 mg PO TID PRN nausea and 08/05/18 tablet vomiting #6 tabs Allergies Allergy/AdvReac Type Severity Reaction Status Date / Time venom-honey bee Allergy Severe SOB Verified 01/13/24 10:31 [bee venom (honey bee)] amoxicillin Allergy Mild AGITATION,SKIN Verified 01/13/24 10:31 CRAWL ciprofloxacin Allergy Mild JOINT Verified 01/13/24 10:31 SWELLING, WHITE BM, RED RASH Penicillins Allergy Mild RASH Verified 01/13/24 10:31 sulfamethoxazole Allergy Unknown AGITATION,SKIN Verified 01/13/24 10:31 [From ] CRAWL trimethoprim [From ] Allergy Unknown AGITATION,SKIN Verified 01/13/24 10:31 CRAWL Review of Systems Review of Systems ROS Unobtainable: All systems reviewed & are unremarkable except as noted in HPI and below Patient History Social History household members: spouse Smoking Status: Never smoker Smoking Status: Never smoker alcohol intake frequency: a few times a week Substance Use Type: does not use Exam Narrative Exam Narrative: GEN: Patient appears in mild distress. HEAD: No evidence of trauma, no raccoon/Poole sign. NECK: Nontender, painless range of motion, trachea midline Negative Nexus criteria, there has no midline line tenderness, distracting injury, altered mental status, neuro deficit, recent EtOH. EYES: PERRLA, EOMI ENT: Patient has some periorbital ecchymosis but without any swelling, he has not abrasion over his right brow, trachea is midline, TM's are normal no hemotypanum, Nares are clear, no septal hematoma, no dental or oral injury, airway is normal and with normal occlusion, No bony tenderness RESP: Chest is nontender and has symmetric movement, no ecchymosis, breath sounds are normal no crackles, wheezes or rales CVS: Heart sounds are normal, no murmur noted, No JVD. ABG/GI: Nontender, soft, normal bowel sounds, no distention, no organomegaly, pelvic rock is negative NEURO: Oriented AOx3, neuro is grossly intact, sensation and motor is normal all 4 extremities moving, cranial nerves II through XII are intact, GCS is 15 PSYCH: Normal mood and affect SKIN: Intact other than noted above, warm and dry, no crepitus and without decubitus BACK: No CVA tenderness, no vertebral tenderness, no step-off's, no crepitus EXT: Atraumatic, hips are nontender, no pedal edema, normal color and temperature, normal range of motion of extremities with normal tendon exam, 2+ pulses in all four extremities Initial Vital Signs Initial Vital Signs: Vital Signs Temperature 97.5 F L 01/13/24 10:28 Pulse Rate 66 01/13/24 10:28 Respiratory Rate 18 01/13/24 10:28 Blood Pressure 144/85 H 01/13/24 10:28 Pulse Oximetry 99 01/13/24 10:28 Oxygen Delivery Method Room Air 01/13/24 10:[address] Head Rule Patient on blood thinners: Yes Age greater or equal to 65 years: Yes GCS Jakob coma scale eye opening: Spontaneous [place] coma scale verbal response: Orientated [place] coma scale motor response: Obey commands Jakob coma scale total score: 15 Course Orders Ordered: ED Orders 01/13/24 10:31 CT cervical spine wo con Stat CT head/brain wo con Stat Vital Signs Vital signs: Vital Signs - 8 hr 01/13/24 10:28 01/13/24 11:40 Temperature 97.5 F L Pulse Rate 66 67 Respiratory Rate 18 19 Blood Pressure 144/85 H 136/86 Pulse Oximetry 99 99 Oxygen Delivery Method Room Air Room Air MDM - Fall MDM Narrative Medical decision making narrative: 83-year-old male on Eliquis with recent head injury 2 days ago. Patient has some periorbital ecchymosis but without any swelling. Does not appear to have any environment eye involvement. No changes to vision. Patient does have an abrasion but appears to be healing well. Tetanus is up-to-date per patient and family. Plan for head CT and C-spine based on extremity of age. Imaging: Head CT is negative for acute change. Age-appropriate periventricular deep white matter chronic small vessel ischemic changes. There is intracranial ICA arthrosclerosis. CT C-spine shows no acute fracture dislocation, cervical spondylosis. Reviewed findings with patient and family at bedside. Can continue his current anticoagulation. Patient family feel comfortable with the plan. Patient ambulated in the department without issue. Discharge Plan Departure Patient Disposition: Home Clinical Impression: Abrasion of brow, Traumatic ecchymosis of face Activity Restrictions/Additional Instructions: Your imaging today shows no acute changes to the brain or spine. You do have some arthritic changes in your cervical spine and some atherosclerosis in the vessels in your brain. Continue your home medication as prescribed. Please return for severe headaches, altered mental status, new numbness, tingling weakness new neck or back pain, persistent vomiting or other new or concerning changes. Prescriptions: No Action aspirin 81 mg Tablet,Delayed Release (Dr/Ec) 81 mg PO DAILY Qty: 0 nitroglycerin [Nitrostat] 0.4 MG tablet, sublingual 0.4 mg Sublingual PRN Qty: 25 1RF CA PANTOTHENATE/FOLIC ACID/VIT (MULTIVITAMIN) 1 tab PO QDAY Qty: 0 Lanolin/Mineral Oil/Petrolat (ARTIFICIAL TEARS) 30 ml OP QDAY Qty: 0 oxymetazoline [Afrin (oxymetazoline)] 0.05 % spray,non-aerosol 1 spray Intranasal QDAY Qty: 0 [CRANBERRY] 300 mg PO QDAY Qty: 0 docusate sodium [Stool Softener] 50 mg Capsule 1 tab PO DAILY latanoprost 0.005 % Drops 1 drp EYE-BOTH DAILY simvastatin 10 mg Tablet 10 mg PO QPM cyanocobalamin (vitamin B-12) [Vitamin B-12] 1,000 mcg Tablet 1,000 mcg PO DAILY warfarin 2.5 mg Tablet See Rx Instructions .ROUTE .COMPLEX Rx Instructions: 2.5 mg orally Mon, Sat, Sat levothyroxine [Synthroid] 75 mcg Tablet 75 mcg PO DAILY warfarin 5 mg Tablet See Rx Instructions .ROUTE .COMPLEX Rx Instructions: 5 mg orally Sat, Sat, , omeprazole 20 mg Capsule,Delayed Release(Dr/Ec) See Rx Instructions .ROUTE .COMPLEX Rx Instructions: 20 mg orally Sat and Wed metoprolol succinate 25 mg Tablet Extended Release 24 Hr 25 mg PO DAILY colchicine 0.6 mg Tablet 0.6 mg PO DAILY cholecalciferol (vitamin D3) [Vitamin D3] 1,000 unit Capsule 1,000 unit PO DAILY ondansetron 4 mg tablet,disintegrating 4 mg PO TID PRN (Reason: nausea and vomiting) Qty: 6 0RF Referrals: Leann Sutherland MD [Primary Care Provider] - Stand Alone Forms: Patient Portal/API
[2024-01-13 11:40] VITALS: BP 136/86; PULSE 67; RESP 19; O2SAT 99
== END 2024-01-13 11:41 | disposition home or self-care (01) ==
PROVIDERS: Emergency Provider Emergency Medicine; PCP Family Medicine
DX: S00.212A Abrasion of left eyelid and periocular area, initial encounter (principal); S00.83XA Contusion of other part of head, initial encounter; W01.0XXA Fall on same level from slipping, tripping and stumbling without subsequent striking against object, initial encounter; Z79.01 Long term (current) use of anticoagulants; Z79.899 Other long term (current) drug therapy
CPT/HCPCS: 70450; 72125; 99283; 99284

== ENCOUNTER → 2024-05-08 08:38 | Outpatient (CLI) | payer OTHER, SELFPAY ==
--- NOTE | 2024-05-08 | DI.US.S_ITS ---
PROCEDURE: US ARTERIAL DUPLEX LE BI INDICATIONS: PERIPHERAL POLYNEUROPATHY,CELLULITIS,PVD, EDEMA TECHNIQUE: Color and pulse Doppler interrogation was performed of both lower extremity arterial systems, with image documentation. COMPARISON: None. FINDINGS: Right lower extremity: Common femoral artery: 70 cm/sec, with biphasic flow. Deep femoral artery: 42 cm/sec, with triphasic flow. Proximal superficial femoral artery: 64 cm/sec, with biphasic flow. Mid superficial femoral artery: 61 cm/sec, with biphasic flow. Distal superficial femoral artery: 44 cm/sec, with biphasic flow. Popliteal artery: 52 cm/sec, with triphasic/biphasic flow. Posterior tibial artery: 37-47 cm/sec, with biphasic /triphasic flow. Anterior tibial artery/dorsalis pedis: 32-41/14 cm/sec, with biphasic flow in the anterior tibial and monophasic in the DPA. Palacios-scale imaging description: Mild atherosclerotic plaque Left lower extremity: Common femoral artery: 63 cm/sec, with biphasic flow. Deep femoral artery: 57 cm/sec, with biphasic flow. Proximal superficial femoral artery: 81 cm/sec, with biphasic flow. Mid superficial femoral artery: 68 cm/sec, with biphasic flow. Distal superficial femoral artery: 54 heart cm/sec, with biphasic flow. Popliteal artery: 57 through 62 cm/sec, with biphasic flow. Posterior tibial artery: 32-54 cm/sec, with biphasic/triphasic flow. Anterior tibial artery/dorsalis pedis: 47-64/68 cm/sec, with proximal triphasic flow to monophasic flow in the anterior tibial artery, monophasic flow in the dorsalis pedis. Palacios-scale imaging description: [id number] atherosclerotic plaque IMPRESSION: No hemodynamically significant stenosis. Monophasic waveforms in the calf vasculature, indicating distal disease. Dictated by: Steven Chatman M.D. on 05/08/2024 at 10:16 Approved by: Steven Chatman M.D. on 05/08/2024 at 10:26
== END ==
PROVIDERS: PCP Family Medicine; Referring Provider Family Medicine; Visit Provider Family Medicine
DX: G62.9 Polyneuropathy, unspecified (principal); L03.116 Cellulitis of left lower limb; I73.9 Peripheral vascular disease, unspecified; R60.0 Localized edema
CPT/HCPCS: 93925

== ENCOUNTER → 2024-05-12 12:10 | Outpatient (CLI) | payer OTHER, SELFPAY ==
--- NOTE | 2024-05-12 12:15 | DI.RAD.S_ITS ---
PROCEDURE: XR FOOT LT MIN 3V INDICATIONS: FOOT PAIN TECHNIQUE: 3 views of the foot were acquired. COMPARISON: [facility], CR, XR FOOT RT MIN 3V, 12/02/2023, 13:06. FINDINGS: Bones: Reon-nh-cttqhdgp left foot joint osteoarthritic changes are seen most notably involving 1st MTP joint. Radiolucency involving medial aspect of 1st metatarsal head concerning for erosion secondary to inflammatory arthropathy. No fractures or dislocations. No suspicious bony lesions. Soft tissues: No tibiotalar joint effusion. Achilles tendon appears normal. 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 Suggestion of erosion involving medial aspect of 1st metatarsal head concerning for superimposed inflammatory arthropathy. No fracture or dislocation. Dictated by: Ej Mustafa M.D. on 05/12/2024 at 17:11 Approved by: Ej Mustafa M.D. on 05/12/2024 at 17:12
--- NOTE | 2024-05-12 12:15 | DI.RAD.S_ITS ---
PROCEDURE: XR ANKLE LT MIN 3V INDICATIONS: FOOT PAIN TECHNIQUE: 3 views of the ankle were acquired. COMPARISON: [facility], CR, XR ANKLE RT MIN 3V, 12/02/2023, 13:06. FINDINGS: Bones: No fractures or dislocations. Mild osteoarthritic changes are again seen in tibiotalar and subtalar joints. Ankle mortise is normally aligned. No suspicious bony lesions. Soft tissues: No tibiotalar joint effusion. Achilles tendon appears normal. IMPRESSION: Mild ankle joint osteoarthritis. No acute fracture or dislocation. Ankle mortise is congruent. Dictated by: Ej Mustafa M.D. on 05/12/2024 at 17:09 Approved by: Ej Mustafa M.D. on 05/12/2024 at 17:11
== END ==
PROVIDERS: PCP Family Medicine; Referring Provider Family Medicine; Visit Provider Family Medicine
DX: L03.116 Cellulitis of left lower limb (principal); M19.072 Primary osteoarthritis, left ankle and foot; M79.672 Pain in left foot
CPT/HCPCS: 73610; 73630

== ENCOUNTER → 2024-07-09 12:28 | Outpatient (CLI) | payer OTHER, SELFPAY ==
--- NOTE | 2024-07-09 12:30 | DI.RAD.S_ITS ---
PROCEDURE: XR LUMBAR SPINE 2-3V INDICATIONS: BACK AND HIP PAIN TECHNIQUE: 3 views of the lumbar spine were acquired. COMPARISON: None. FINDINGS: Bones: 5 itt-wce-rmvpbrt vertebrae are present. Lumbar vertebral bodies demonstrate normal height without compression deformity. Mild grade 1 anterolisthesis of L4 on L5 likely related to extensive facet arthropathy at this level. Mild scoliosis of the lumbar spine with convexity to the left. Severe degenerative disc disease of L1-2. Remainder of the intervertebral disc spaces of the lumbar spine appear normal. No suspicious osseous lesions. Soft tissues: Overlying bowel gas pattern is normal. No suspicious soft tissue calcifications. IMPRESSION: Degenerative disc disease of the lumbar spine and facet arthropathy as described. No acute osseous abnormality. Dictated by: Bill Rodriguez M.D. on 07/09/2024 at 17:04 Approved by: Bill Rodriguez M.D. on 07/09/2024 at 17:05
== END ==
PROVIDERS: PCP Family Medicine; Referring Provider Family Medicine; Visit Provider Family Medicine
DX: M43.16 Spondylolisthesis, lumbar region (principal); M47.816 Spondylosis without myelopathy or radiculopathy, lumbar region; M51.36 Other intervertebral disc degeneration, lumbar region; M48.062 Spinal stenosis, lumbar region with neurogenic claudication; M41.86 Other forms of scoliosis, lumbar region; M54.50 Low back pain, unspecified; G62.9 Polyneuropathy, unspecified; M25.551 Pain in right hip
CPT/HCPCS: 72100

== ENCOUNTER → 2024-08-20 08:41 | Outpatient (CLI) | payer OTHER, SELFPAY ==
--- NOTE | 2024-08-20 | DI.MRI.S_ITS ---
PROCEDURE: MR LUMBAR SPINE WO CON INDICATIONS: Spinal stenosis, lumbar region with neurogenic claudication TECHNIQUE: Noncontrast sagittal T1 spin echo and T2 fast echo, sagittal STIR, and T2 fast spin echo through the lumbar spine. In cases with scoliosis, additional coronal T2 fast spin echo may be performed. COMPARISON: [facility], CR, XR LUMBAR SPINE 2-3V, 07/09/2024, 12:28. FINDINGS: Image quality: Excellent. Alignment and Curvature: Mild S-shaped thoracolumbar scoliotic curvature. Trace anterolisthesis of L4 on L5. Bone Marrow: Marrow is of normal overall signal. No acute vertebral body compression fractures. Spinal Cord: Conus medullaris terminates at the L1-L2 level. Visualized cord demonstrates normal signal and size. Paraspinous Soft Tissues: No paravertebral masses. T12-L1: Normal appearance. L1-L2: Chronic disc height loss. Disc bulge. Early facet hypertrophy. No canal stenosis or foraminal stenosis. L2-L3: Disc bulge. Mild facet hypertrophy. No canal stenosis or foraminal stenosis. L3-L4: Disc bulge. Facet hypertrophy. Borderline canal stenosis. No foraminal stenosis. L4-L5: Prominent facet hypertrophy. Trace anterolisthesis. Diffuse disc bulge. Axfy-kj-xzbyrywh canal stenosis. Mild to moderate bilateral foraminal stenosis. L5-S1: Disc bulge. Prominent facet hypertrophy. No canal stenosis or foraminal stenosis. IMPRESSION: 1. There is multilevel underlying facet arthropathy, prominent at L4-L5 and L5-S1. 2. Canal stenosis is borderline at L3-L4 and thoa-ym-wmmbhvct at L4-L5. 3. No foraminal nerve root impingement. Dictated by: Geovanni Morales M.D. on 08/20/2024 at 10:17 Approved by: Geovanni Morales M.D. on 08/20/2024 at 10:23
== END ==
PROVIDERS: PCP Family Medicine; Referring Provider Family Medicine; Visit Provider Family Medicine
DX: M48.062 Spinal stenosis, lumbar region with neurogenic claudication (principal); M51.369 Other intervertebral disc degeneration, lumbar region without mention of lumbar back pain or lower extremity pain; M47.816 Spondylosis without myelopathy or radiculopathy, lumbar region; M47.817 Spondylosis without myelopathy or radiculopathy, lumbosacral region
CPT/HCPCS: 72148

== ENCOUNTER → 2024-09-09 14:47 | Outpatient (CLI) | payer OTHER, SELFPAY ==
--- NOTE | 2024-09-09 14:50 | DI.RAD.S_ITS ---
PROCEDURE: XR HIP W PEL IF DONE RT 2V INDICATIONS: LOW BACK/HIP PAIN TECHNIQUE: Two views of the hip were acquired. COMPARISON: None. FINDINGS: Bones: CAM configuration of the right femoral head neck junction would predispose to femoral acetabular impingement and labral tear. SI and hip joints: There is only mild degenerative change of both SI and hip joints. Moderate L5-S1 degenerative disc disease. Soft tissues: No soft tissue swelling, calcification or mass. IMPRESSION: CAM configuration right femoral head neck junction-Please see above Mild bilateral SI and hip degeneration. moderate L5-S1 degenerative disc disease Dictated by: Henok Fournier M.D. on 09/10/2024 at 8:58 Approved by: Henok Fournier M.D. on 09/10/2024 at 8:59
== END ==
PROVIDERS: PCP Family Medicine; Referring Provider Family Medicine; Visit Provider Family Medicine
DX: M16.0 Bilateral primary osteoarthritis of hip (principal); M51.379 Other intervertebral disc degeneration, lumbosacral region without mention of lumbar back pain or lower extremity pain; M47.818 Spondylosis without myelopathy or radiculopathy, sacral and sacrococcygeal region; M54.50 Low back pain, unspecified; M25.551 Pain in right hip
CPT/HCPCS: 73502

== ENCOUNTER 2024-09-14 14:22 | Emergency (ER) | payer OTHER, SELFPAY ==
[2024-09-14] VITALS (12 sets, daily range): BP systolic 128–170; BP diastolic 64–90; PULSE 61–73; RESP 16–28; TEMP 36.3; O2SAT 95–98; BMI 23.6
--- NOTE | 2024-09-14 14:35 | DI.RAD.S_ITS ---
PROCEDURE: XR CHEST 1V INDICATIONS: altered mental status TECHNIQUE: One view of the chest was acquired. COMPARISON: None. FINDINGS: Surgical changes and devices: None. Lungs and pleura: Lungs are clear. No pleural effusions or pneumothorax. Mediastinum: Mediastinal contours appear normal. Heart size is normal. Bones and chest wall: No suspicious bony lesions. Overlying soft tissues appear unremarkable. IMPRESSION: No acute cardiopulmonary abnormality is seen. Dictated by: Uri June M.D. on 09/14/2024 at 15:31 Approved by: Uri June M.D. on 09/14/2024 at 15:31
--- NOTE | 2024-09-14 14:35 | EKG_ITS ---
[address] [address] Test Date: 2024-09-14 Pat Name: Calvin Irwin Department: Room: Gender: Male [employer] Hand: KACY : 1940 Requested By: Order Number: [id number] Reading MD: Henok Ding MD Measurements Intervals [place] Rate: 68 P: NM: QRS: -25 QRSD: 162 T: -11 QT: 438 QTc: 465 Interpretive Statements Atrial fibrillation with premature ventricular or aberrantly conducted complexes Right bundle branch block NO SIGNIFICANT CHANGE FROM PRIOR TRACING Electronically Signed On 09-15-2024 7:20:17 PST by Henok Ding MD
[2024-09-14 15:07] LABS: Add Manual Diff / Slide Review NO; Basophils Absolute Auto 100 /uL (0-100); Basophils Percent Auto 0.6 % (0-2); Eosinophils Absolute Auto 200 /uL (0-450); Eosinophils Percent Auto 1.3 % (2-4); Hematocrit 52.2 % (41-53); Hemoglobin 17.4 g/dL (13.5-17.5); Lymphocytes Absolute Auto 1800 /uL (1100-4500); Lymphocytes Percent Auto 14.2 % (25-40); Mean Corpuscular HGB Conc 33.3 % (30-36); Monocytes Absolute Auto 1200 /uL (0-900); Monocytes Percent Auto 9.4 % (3-14); Neutrophils Absolute Auto 9300 /uL (1500-7000); Neutrophils Percent Auto 74.5 % (50-75); Platelet Count 228 X10^3/uL (150-400); Red Cell Distribution Width 14.6 % (11.6-14.8); White Blood Cell Count 12.5 X10^3/uL (4.5-11.0)
[2024-09-14 15:12] LABS: Alanine Aminotransferase 28 IU/L (<50); Albumin 4.3 g/dL (3.5-5.0); Albumin Globulin Ratio 1.3 (1.0-2.8); Alkaline Phosphatase 67 U/L (38-126); Ammonia (NH3) < 9 umol/L (9-30); Aspartate Aminotransferase 34 IU/L (17-59); Bilirubin Total 1.3 mg/dL (0.2-1.3); Blood Urea Nitrogen 19 mg/dL (9-20); Calcium 9.3 mg/dL (8.4-10.2); Carbon Dioxide 26 mmol/L (22-32); Chloride 99 mmol/L (98-107); Estimated Glomerular Filt Rate 51 mL/min (>60); Globulin 3.3 g/dL (1.7-4.1); Glucose 119 mg/dL (80-110); HEMOLYSIS < 15 (0-50); Potassium 4.2 mmol/L (3.4-5.1); Sodium 133 mmol/L (137-145); Total Protein 7.6 g/dL (6.3-8.2)
[2024-09-14 15:36] LABS: UR Morphine/Opiate cutoff 300 Negative (Negative); Ur Creatinine Normal (Normal); Ur Specific Gravity Normal (Normal); Urine Amphetamines Negative (Negative); Urine Barbiturates Negative (Negative); Urine Benzodiazepines Negative (Negative); Urine Cocaine Negative (Negative); Urine MDMA Negative (Negative); Urine Methadone Negative (Negative); Urine Methamphetamines Negative (Negative); Urine Oxycodone Negative (Negative); Urine Phencyclidine Negative (Negative); Urine Tetrahydrocannabinol Negative (Negative); Urine Tricyclic Antidepressant Negative (Negative); Urine pH Normal (Normal)
--- NOTE | 2024-09-14 15:37 | ED_ITS ---
HPI - General Adult <Karly Mueller MD - Last Filed: 09/15/24 07:39> General Chief complaint: Altered Mental Status Stated complaint: Confused, Seeing people that aren't there Time Seen by Provider: 09/14/24 15:04 Source: patient Mode of arrival: Ambulatory History of Present Illness HPI narrative: 84-year-old gentleman sent over from primary care office apparently within the last 24 hours patient has become disoriented and is hallucinating per his . He is are entirely new symptoms. There have been no medication changes. Patient does recognize some of the things that he is seeing are not in fact real such as dogs that are barking, people breaking into his home. Additional medical problems include chronic atrial fibrillation rate controlled, currently on warfarin, hyperlipidemia, hypothyroidism Related Data Home Medications Medication Instructions Recorded Confirmed aspirin 81 mg tablet,delayed 81 mg PO DAILY ##0 03/15/11 04/22/18 release CA PANTOTHENATE/FOLIC ACID/VIT 1 tab PO QDAY ##0 05/18/13 04/22/18 (MULTIVITAMIN) Lanolin/Mineral Oil/Petrolat 30 ml OP QDAY ##0 05/18/13 04/22/18 (ARTIFICIAL TEARS) oxymetazoline 0.05 % nasal spray 1 spray intranasal QDAY ##0 05/18/13 04/22/18 (Afrin (oxymetazoline)) [CRANBERRY] 300 mg PO QDAY ##0 07/01/13 04/22/18 cholecalciferol (vitamin D3) 25 1,000 unit PO DAILY 04/08/18 04/22/18 mcg (1,000 unit) capsule (Vitamin D3) colchicine 0.6 mg tablet 0.6 mg PO DAILY 04/08/18 04/22/18 cyanocobalamin (vitamin B-12) 1,000 mcg PO DAILY 04/08/18 04/22/18 1,000 mcg tablet (Vitamin B-12) docusate sodium 50 mg capsule 1 tab PO DAILY 04/08/18 04/22/18 (Stool Softener) latanoprost 0.005 % eye drops 1 drp EYE-BOTH DAILY 04/08/18 04/22/18 levothyroxine 75 mcg tablet 75 mcg PO DAILY 04/08/18 04/22/18 (Synthroid) metoprolol succinate 25 mg 25 mg PO DAILY 04/08/18 04/22/18 tablet,extended release 24 hr omeprazole 20 mg capsule,delayed See Rx Instructions .Route .COMPLEX 04/08/18 04/22/18 release simvastatin 10 mg tablet 10 mg PO QPM 04/08/18 04/22/18 warfarin 2.5 mg tablet See Rx Instructions .Route .COMPLEX 04/08/18 04/22/18 warfarin 5 mg tablet See Rx Instructions .Route .COMPLEX 04/08/18 04/22/18 Previous Rx's Medication Instructions Recorded nitroglycerin 0.4 mg sublingual 0.4 mg sublingual PRN ##25 10/20/12 tablet (Nitrostat) ondansetron 4 mg disintegrating 4 mg PO TID PRN nausea and 08/05/18 tablet vomiting #6 tabs Allergies Allergy/AdvReac Type Severity Reaction Status Date / Time venom-honey bee Allergy Severe SOB Verified 01/13/24 10:31 [bee venom (honey bee)] amoxicillin Allergy Mild AGITATION,SKIN Verified 01/13/24 10:31 CRAWL ciprofloxacin Allergy Mild JOINT Verified 01/13/24 10:31 SWELLING, WHITE BM, RED RASH Penicillins Allergy Mild RASH Verified 01/13/24 10:31 sulfamethoxazole Allergy Unknown AGITATION,SKIN Verified 01/13/24 10:31 [From ] CRAWL trimethoprim [From ] Allergy Unknown AGITATION,SKIN Verified 01/13/24 10:31 CRAWL Patient History <Karly Mueller MD - Last Filed: 09/15/24 07:39> Social History household members: spouse Smoking Status: Never smoker Smoking Status: Never smoker alcohol intake frequency: a few times a week Substance Use Type: does not use Exam <Karly Mueller MD - Last Filed: 09/15/24 07:39> Initial Vital Signs Initial Vital Signs: Vital Signs Temperature 97.4 F L 09/14/24 14:28 Pulse Rate 68 09/14/24 14:28 Respiratory Rate 18 09/14/24 14:28 Blood Pressure 135/84 09/14/24 14:28 Pulse Oximetry 98 09/14/24 14:28 Oxygen Delivery Method Room Air 09/14/24 14:28 <Sy Fuentes DO - Last Filed: 09/14/24 19:13> Initial Vital Signs Initial Vital Signs: Vital Signs Temperature 97.4 F L 09/14/24 14:28 Pulse Rate 68 09/14/24 14:28 Respiratory Rate 18 09/14/24 14:28 Blood Pressure 135/84 09/14/24 14:28 Pulse Oximetry 98 09/14/24 14:28 Oxygen Delivery Method Room Air 09/14/24 14:28 Course <Karly Mueller MD - Last Filed: 09/15/24 07:39> Orders Ordered: ED Orders 09/14/24 14:35 XR chest 1V Stat EKG-12 Lead Stat 09/14/24 14:45 Ammonia (NH3) Stat Complete Blood Count AUTO DIFF Stat Comprehensive Metabolic Panel Stat 09/14/24 15:25 Urine Culture Stat Urine Drug Screen, Rapid Stat Urine Microscopic Stat 09/14/24 16:15 CT head/brain wo con Stat 09/14/24 16:20 Respiratory Panel (Film Array) Stat Vital Signs Vital signs: Vital Signs - 8 hr 09/14/24 14:28 09/14/24 14:43 09/14/24 15:00 Temperature 97.4 F L Pulse Rate 68 70 68 Respiratory Rate 18 21 19 Blood Pressure 135/84 Pulse Oximetry 98 98 96 Oxygen Delivery Method Room Air 09/14/24 15:00 09/14/24 15:29 09/14/24 15:29 Temperature Pulse Rate 72 Respiratory Rate 28 H Blood Pressure 145/69 H 170/85 H Pulse Oximetry 98 Oxygen Delivery Method 09/14/24 15:30 09/14/24 15:30 09/14/24 16:00 Temperature Pulse Rate 73 68 Respiratory Rate 18 24 Blood Pressure 136/64 Pulse Oximetry 98 98 Oxygen Delivery Method 09/14/24 16:00 09/14/24 16:30 09/14/24 16:30 Temperature Pulse Rate 63 Respiratory Rate 19 Blood Pressure 128/73 129/73 Pulse Oximetry 96 Oxygen Delivery Method 09/14/24 16:46 09/14/24 16:46 09/14/24 17:00 Temperature Pulse Rate 61 62 Respiratory Rate 16 21 Blood Pressure 151/79 H Pulse Oximetry 96 95 Oxygen Delivery Method Room Air 09/14/24 17:00 09/14/24 17:31 09/14/24 18:00 Temperature Pulse Rate 70 63 Respiratory Rate 26 H 18 Blood Pressure 148/90 H Pulse Oximetry 98 95 Oxygen Delivery Method 09/14/24 19:05 Temperature Pulse Rate 61 Respiratory Rate 17 Blood Pressure 148/90 H Pulse Oximetry 97 Oxygen Delivery Method Room Air <Sy Gina, - Last Filed: 09/14/24 19:13> Orders Ordered: ED Orders 09/14/24 14:35 XR chest 1V Stat EKG-12 Lead Stat 09/14/24 14:45 Ammonia (NH3) Stat Complete Blood Count AUTO DIFF Stat Comprehensive Metabolic Panel Stat 09/14/24 15:25 Urine Culture Stat Urine Drug Screen, Rapid Stat Urine Microscopic Stat 09/14/24 16:15 CT head/brain wo con Stat 09/14/24 16:20 Respiratory Panel (Film Array) Stat Vital Signs Vital signs: Vital Signs - 8 hr 09/14/24 14:28 09/14/24 14:43 09/14/24 15:00 Temperature 97.4 F L Pulse Rate 68 70 68 Respiratory Rate 18 21 19 Blood Pressure 135/84 Pulse Oximetry 98 98 96 Oxygen Delivery Method Room Air 09/14/24 15:00 09/14/24 15:29 09/14/24 15:29 Temperature Pulse Rate 72 Respiratory Rate 28 H Blood Pressure 145/69 H 170/85 H Pulse Oximetry 98 Oxygen Delivery Method 09/14/24 15:30 09/14/24 15:30 09/14/24 16:00 Temperature Pulse Rate 73 68 Respiratory Rate 18 24 Blood Pressure 136/64 Pulse Oximetry 98 98 Oxygen Delivery Method 09/14/24 16:00 09/14/24 16:30 09/14/24 16:30 Temperature Pulse Rate 63 Respiratory Rate 19 Blood Pressure 128/73 129/73 Pulse Oximetry 96 Oxygen Delivery Method 09/14/24 16:46 09/14/24 16:46 09/14/24 17:00 Temperature Pulse Rate 61 62 Respiratory Rate 16 21 Blood Pressure 151/79 H Pulse Oximetry 96 95 Oxygen Delivery Method Room Air 09/14/24 17:00 09/14/24 17:31 09/14/24 18:00 Temperature Pulse Rate 70 63 Respiratory Rate 26 H 18 Blood Pressure 148/90 H Pulse Oximetry 98 95 Oxygen Delivery Method 09/14/24 19:05 Temperature Pulse Rate 61 Respiratory Rate 17 Blood Pressure 148/90 H Pulse Oximetry 97 Oxygen Delivery Method Room Air Medical Decision Making <Karly Mueller MD - Last Filed: 09/15/24 07:39> Lab Data 09/14/24 14:45 09/14/24 14:45 Labs: Lab Results 09/14/24 09/14/24 09/14/24 Range/Units 14:45 15:25 16:20 WBC 12.5 H (4.5-11.0) X10^3/uL RBC 5.80 (4.5-5.9) X10^6/uL Hgb 17.4 (13.5-17.5) g/dL Hct 52.2 (41-53) % MCV 90.0 (80-100) fL MCH 30.0 (26-34) PG MCHC 33.3 (30-36) % RDW 14.6 (11.6-14.8) % Plt Count 228 (150-400) X10^3/uL Neut % (Auto) 74.5 (50-75) % Lymph % (Auto) 14.2 L (25-40) % Mccone % (Auto) 9.4 (3-14) % Eos % (Auto) 1.3 L (2-4) % Baso % (Auto) 0.6 (0-2) % Neut # (Auto) 9300 H (7167-6692) /uL Lymph # (Auto) 1800 (8299-8775) /uL Mccone # (Auto) 1200 H (0-900) /uL Eos # (Auto) 200 (0-450) /uL Baso # (Auto) 100 (0-100) /uL Sodium 133 L (137-145) mmol/L Potassium 4.2 (3.4-5.1) mmol/L Chloride 99 (98-107) mmol/L Carbon Dioxide 26 (22-32) mmol/L BUN 19 (9-20) mg/dL Creatinine 1.36 H (0.66-1.25) mg/dL Estimated GFR 51 L (>60) mL/min BUN/Creatinine Ratio 14.0 (6-22) Glucose 119 H (80-110) mg/dL Calcium 9.3 (8.4-10.2) mg/dL Total Bilirubin 1.3 (0.2-1.3) mg/dL AST 34 (17-59) IU/L ALT 28 (<50) IU/L Alkaline Phosphatase 67 (38-126) U/L Ammonia < 9 L (9-30) umol/L Total Protein 7.6 (6.3-8.2) g/dL Albumin 4.3 (3.5-5.0) g/dL Globulin 3.3 (1.7-4.1) g/dL Albumin/Globulin Ratio 1.3 (1.0-2.8) Urine RBC 0-1/hpf (0-5/HPF) Urine WBC 0-1/hpf (0-5/HPF) Ur Squamous Epith Cells 0-1 /hpf (0-5/HPF) Urine Bacteria Occasional (0-1) (None) Vol Urine Centrifuged 10ml (spun) U Opiates 300ng/mL cut Negative (Negative) Ur Oxycodone Screen Negative (Negative) Urine Methadone Screen Negative (Negative) Ur Barbiturates Screen Negative (Negative) U Tricyclic Antidepress Negative (Negative) Ur Phencyclidine Scrn Negative (Negative) Ur Amphetamines Screen Negative (Negative) U Methamphetamines Scrn Negative (Negative) Ur MDMA Scrn (Ecstasy) Negative (Negative) U Benzodiazepines Scrn Negative (Negative) Urine Cocaine Screen Negative (Negative) U Marijuana (THC) Screen Negative (Negative) Urine pH Normal (Normal) Urine Specific [place] Normal (Normal) Ur Creatinine Normal (Normal) Chlamy pneumoniae PCR Not detected (Not Detect) Adenovirus (PCR) Not detected (Not Detect) B. pertussis DNA (PCR) Not detected (Not Detect) B.parapertussis DNA PCR Not detected (Not Detecte) Coronavirus OC43 (PCR) Not detected (Not Detect) Coronavirus HKU1 (PCR) Not detected (Not Detect) Coronavirus 229E (PCR) Not detected (Not Detect) SARS-CoV-2 (PCR) Not detected (Not Detecte) Coronavirus NL63 (PCR) Not detected (Not Detect) Human Metapneumovir PCR Not detected (Not Detect) Influenza Type A (PCR) Not detected (Not Detect) Influenza Type B (PCR) Not detected (Not Detect) M. pneumoniae (PCR) Not detected (Not Detect) Parainfluenza 1 (PCR) Not detected (Not Detect) Parainfluenza 2 (PCR) Not detected (Not Detect) Parainfluenza 3 (PCR) Not detected (Not Detect) Parainfluenza 4 (PCR) Not detected (Not Detect) RSV (PCR) Not detected (Not Detect) Entero/Rhino (PCR) Not detected (Not Detect) Urine Dip Bedside Urine Glucose Negative Bedside Urine Bilirubin - Negative Bedside Urine Ketone - Negative Urine Specific [place] 1.015 Bedside Urine Occult Blood - Negative Bedside Urine pH 6.0 Bedside Urine Protein +/- 15 Bedside Urine Urobilinogen - Negative Bedside Urine Nitrite - Negative Bedside Urine Leukocytes - Negative Esterase Point of care testing: Urine Dip Bedside Urine Glucose Negative Bedside Urine Bilirubin - Negative Bedside Urine Ketone - Negative Urine Specific [place] 1.015 Bedside Urine Occult Blood - Negative Bedside Urine pH 6.0 Bedside Urine Protein +/- 15 Bedside Urine Urobilinogen - Negative Bedside Urine Nitrite - Negative Bedside Urine Leukocytes - Negative Esterase MDM Narrative Medical decision making narrative: CC: Confusion with paranoia and hallucinations increasing over 24 hours Complicating co-morbidities: Data collected from: patient Social determinants of health that may influence the patients condition: Medical records reviewed: Differential considered: Exam documented above, pertinent findings include: Lab Test results independently reviewed as above. Pertinent findings: CBC shows mild leukocytosis at 12.5 but no left shift. No anemia Chemistries show slight bump in creatinine from 1.1-1.36. No electrolyte abnormality Ammonia level is not elevated Urinalysis does not suggest UTI Independently reviewed EKG: Chronic atrial fibrillation, PVCs, no acute ischemic changes Imaging studies independently reviewed: Chest x-ray is unremarkable Consultations: Treatments: Re-evaluations: Discussion: <Sy Fuentes, - Last Filed: 09/14/24 19:13> Lab Data Labs: Lab Results 09/14/24 09/14/24 09/14/24 Range/Units 14:45 15:25 16:20 WBC 12.5 H (4.5-11.0) X10^3/uL RBC 5.80 (4.5-5.9) X10^6/uL Hgb 17.4 (13.5-17.5) g/dL Hct 52.2 (41-53) % MCV 90.0 (80-100) fL MCH 30.0 (26-34) PG MCHC 33.3 (30-36) % RDW 14.6 (11.6-14.8) % Plt Count 228 (150-400) X10^3/uL Neut % (Auto) 74.5 (50-75) % Lymph % (Auto) 14.2 L (25-40) % Mccone % (Auto) 9.4 (3-14) % Eos % (Auto) 1.3 L (2-4) % Baso % (Auto) 0.6 (0-2) % Neut # (Auto) 9300 H (4128-8814) /uL Lymph # (Auto) 1800 (1741-7694) /uL Mccone # (Auto) 1200 H (0-900) /uL Eos # (Auto) 200 (0-450) /uL Baso # (Auto) 100 (0-100) /uL Sodium 133 L (137-145) mmol/L Potassium 4.2 (3.4-5.1) mmol/L Chloride 99 (98-107) mmol/L Carbon Dioxide 26 (22-32) mmol/L BUN 19 (9-20) mg/dL Creatinine 1.36 H (0.66-1.25) mg/dL Estimated GFR 51 L (>60) mL/min BUN/Creatinine Ratio 14.0 (6-22) Glucose 119 H (80-110) mg/dL Calcium 9.3 (8.4-10.2) mg/dL Total Bilirubin 1.3 (0.2-1.3) mg/dL AST 34 (17-59) IU/L ALT 28 (<50) IU/L Alkaline Phosphatase 67 (38-126) U/L Ammonia < 9 L (9-30) umol/L Total Protein 7.6 (6.3-8.2) g/dL Albumin 4.3 (3.5-5.0) g/dL Globulin 3.3 (1.7-4.1) g/dL Albumin/Globulin Ratio 1.3 (1.0-2.8) Urine RBC 0-1/hpf (0-5/HPF) Urine WBC 0-1/hpf (0-5/HPF) Ur Squamous Epith Cells 0-1 /hpf (0-5/HPF) Urine Bacteria Occasional (0-1) (None) Vol Urine Centrifuged 10ml (spun) U Opiates 300ng/mL cut Negative (Negative) Ur Oxycodone Screen Negative (Negative) Urine Methadone Screen Negative (Negative) Ur Barbiturates Screen Negative (Negative) U Tricyclic Antidepress Negative (Negative) Ur Phencyclidine Scrn Negative (Negative) Ur Amphetamines Screen Negative (Negative) U Methamphetamines Scrn Negative (Negative) Ur MDMA Scrn (Ecstasy) Negative (Negative) U Benzodiazepines Scrn Negative (Negative) Urine Cocaine Screen Negative (Negative) U Marijuana (THC) Screen Negative (Negative) Urine pH Normal (Normal) Urine Specific [place] Normal (Normal) Ur Creatinine Normal (Normal) Chlamy pneumoniae PCR Not detected (Not Detect) Adenovirus (PCR) Not detected (Not Detect) B. pertussis DNA (PCR) Not detected (Not Detect) B.parapertussis DNA PCR Not detected (Not Detecte) Coronavirus OC43 (PCR) Not detected (Not Detect) Coronavirus HKU1 (PCR) Not detected (Not Detect) Coronavirus 229E (PCR) Not detected (Not Detect) SARS-CoV-2 (PCR) Not detected (Not Detecte) Coronavirus NL63 (PCR) Not detected (Not Detect) Human Metapneumovir PCR Not detected (Not Detect) Influenza Type A (PCR) Not detected (Not Detect) Influenza Type B (PCR) Not detected (Not Detect) M. pneumoniae (PCR) Not detected (Not Detect) Parainfluenza 1 (PCR) Not detected (Not Detect) Parainfluenza 2 (PCR) Not detected (Not Detect) Parainfluenza 3 (PCR) Not detected (Not Detect) Parainfluenza 4 (PCR) Not detected (Not Detect) RSV (PCR) Not detected (Not Detect) Entero/Rhino (PCR) Not detected (Not Detect) Urine Dip Bedside Urine Glucose Negative Bedside Urine Bilirubin - Negative Bedside Urine Ketone - Negative Urine Specific [place] 1.015 Bedside Urine Occult Blood - Negative Bedside Urine pH 6.0 Bedside Urine Protein +/- 15 Bedside Urine Urobilinogen - Negative Bedside Urine Nitrite - Negative Bedside Urine Leukocytes - Negative Esterase Point of care testing: Urine Dip Bedside Urine Glucose Negative Bedside Urine Bilirubin - Negative Bedside Urine Ketone - Negative Urine Specific [place] 1.015 Bedside Urine Occult Blood - Negative Bedside Urine pH 6.0 Bedside Urine Protein +/- 15 Bedside Urine Urobilinogen - Negative Bedside Urine Nitrite - Negative Bedside Urine Leukocytes - Negative Esterase Imaging Data CT scan - head: Radiologist's Impression: [address] [address] [address] Scan Report Signed Patient: Calvin Irwin MR#: [id number] : 1940 Acct:[id number] Age/Sex: 84 / M Date of Service: 09/14/24 Loc: ED Accession Number: [id number] Procedure: CT head/brain wo con Ordering Provider: Karly Mueller MD PROCEDURE: CT HEAD/BRAIN WO CON INDICATIONS: acutely altered mental status TECHNIQUE: Noncontrast 4.5 mm thick angled axial sections acquired from the foramen magnum to the vertex, with coronal and sagittal reformats. For radiation dose reduction, the following was used: automated exposure control, adjustment of mA and/or kV according to patient size. COMPARISON: [facility], CR, XR CHEST 1V, 09/14/2024, 14:45. [facility], CT, CT HEAD/BRAIN WO CON, 01/13/2024, 9:41. FINDINGS: Image quality: Mild streak artifact can be seen through the skull base. CSF spaces: Basal cisterns are patent. No extra-axial fluid collections. The ventricles are symmetric in size and shape. Brain: No intracranial bleeds or masses. There is cerebral volume loss for age, with resultant ventricular and sulcal prominence. There are periventricular and deep white matter chronic small vessel ischemic changes. There is intracranial internal carotid artery atherosclerosis. Skull and face: Calvarium and visualized facial bones appear intact, without suspicious lesions. Sinuses: Visualized sinuses and mastoids are clear. IMPRESSION: No acute intracranial hemorrhage is seen. No acute intracranial pathology. To the limits of this noncontrast study, no findings of intracranial masses or mass effect can be seen. Chest x-ray: Radiologist's Impression: [place] [address] XRay Report Signed Patient: Calvin Irwin MR#: [id number] : 1940 Acct:[id number] Age/Sex: 84 / M Date of Service: 09/14/24 Loc: ED Accession Number: [id number] Procedure: XR chest 1V Ordering Provider: Karly Mueller MD PROCEDURE: XR CHEST 1V INDICATIONS: altered mental status TECHNIQUE: One view of the chest was acquired. COMPARISON: None. FINDINGS: Surgical changes and devices: None. Lungs and pleura: Lungs are clear. No pleural effusions or pneumothorax. Mediastinum: Mediastinal contours appear normal. Heart size is normal. Bones and chest wall: No suspicious bony lesions. Overlying soft tissues appear unremarkable. IMPRESSION: No acute cardiopulmonary abnormality is seen. ECG Data Interpretation: EKG interpreted ED physician atrial fibrillation at 68 beats per minute, QTC 465, normal axis, nonspecific ST changes, no STEMI MDM Narrative Medical decision making narrative: CC: Confusion with paranoia and hallucinations increasing over 24 hours Complicating co-morbidities: AFib on Eliquis, dementia Data collected from: patient Social determinants of health that may influence the patients condition: None Medical records reviewed: Yes Differential considered: ACS, pneumonia, electrolyte abnormality, intracranial hemorrhage, Exam documented above, pertinent findings include: Lab Test results independently reviewed as above. Pertinent findings: CBC shows mild leukocytosis at 12.5 but no left shift. No anemia Chemistries show slight bump in creatinine from 1.1-1.36. No electrolyte abnormality Ammonia level is not elevated Urinalysis does not suggest UTI Independently reviewed EKG: Chronic atrial fibrillation, PVCs, no acute ischemic changes Imaging studies independently reviewed: Chest x-ray is unremarkable Consultations: None Treatments: Re-evaluations: Patient was re-evaluated, no new complaints at this time, I informed family members as well as patient of the negative workup performed here in the emergency department, patient's change in mentation possibly due more for progression of patient's known dementia. I informed them that we have ruled out all infectious causes that could cause abrupt change in mentation, informed them to follow up with PCP and Neurology in outpatient setting. Discharge Plan Departure Patient Disposition: Home Clinical Impression: Dementia Activity Restrictions/Additional Instructions: Please follow up with Neurology and your primary care doctor Please read the discharge instructions sheet carefully and bring all papers to all doctor follow-up visits, as it may contain information that your doctor may want to see. Disease processes change and evolve, if your symptoms worsen or if you develop any new symptoms that are concerning to you please return for evaluation. Your evaluation today does not show any evidence of any life- threatening/serious illnesses requiring admission to the hospital or surgery. Please follow-up with your doctor for re-evaluation in approximately 1 day. Seek immediate medical attention for any worrisome symptoms. Prescriptions: No Action aspirin 81 mg Tablet,Delayed Release (Dr/Ec) 81 mg PO DAILY Qty: 0 nitroglycerin [Nitrostat] 0.4 MG tablet, sublingual 0.4 mg Sublingual PRN Qty: 25 1RF CA PANTOTHENATE/FOLIC ACID/VIT (MULTIVITAMIN) 1 tab PO QDAY Qty: 0 Lanolin/Mineral Oil/Petrolat (ARTIFICIAL TEARS) 30 ml OP QDAY Qty: 0 oxymetazoline [Afrin (oxymetazoline)] 0.05 % spray,non-aerosol 1 spray Intranasal QDAY Qty: 0 [CRANBERRY] 300 mg PO QDAY Qty: 0 docusate sodium [Stool Softener] 50 mg Capsule 1 tab PO DAILY latanoprost 0.005 % Drops 1 drp EYE-BOTH DAILY simvastatin 10 mg Tablet 10 mg PO QPM cyanocobalamin (vitamin B-12) [Vitamin B-12] 1,000 mcg Tablet 1,000 mcg PO DAILY warfarin 2.5 mg Tablet See Rx Instructions .ROUTE .COMPLEX Rx Instructions: 2.5 mg orally Mon, Wed, Fri levothyroxine [Synthroid] 75 mcg Tablet 75 mcg PO DAILY warfarin 5 mg Tablet See Rx Instructions .ROUTE .COMPLEX Rx Instructions: 5 mg orally Sat, Sat, , omeprazole 20 mg Capsule,Delayed Release(Dr/Ec) See Rx Instructions .ROUTE .COMPLEX Rx Instructions: 20 mg orally Sat and Wed metoprolol succinate 25 mg Tablet Extended Release 24 Hr 25 mg PO DAILY colchicine 0.6 mg Tablet 0.6 mg PO DAILY cholecalciferol (vitamin D3) [Vitamin D3] 1,000 unit Capsule 1,000 unit PO DAILY ondansetron 4 mg tablet,disintegrating 4 mg PO TID PRN (Reason: nausea and vomiting) Qty: 6 0RF Referrals: Leann Sutherland MD [Primary Care Provider] - Stand Alone Forms: Patient Portal/API/Survey
[2024-09-14 15:41] LABS: Bacteria Urine Occasional (0-1); RBC Urine 0-1/HPF (0-5/HPF); Squamous Epithelial Cell Urine 0-1 /HPF (0-5/HPF); Urine Volume 10mL (spun); WBC Urine 0-1/HPF (0-5/HPF)
--- NOTE | 2024-09-14 16:15 | DI.CT.S_ITS ---
PROCEDURE: CT HEAD/BRAIN WO CON INDICATIONS: acutely altered mental status TECHNIQUE: Noncontrast 4.5 mm thick angled axial sections acquired from the foramen magnum to the vertex, with coronal and sagittal reformats. For radiation dose reduction, the following was used: automated exposure control, adjustment of mA and/or kV according to patient size. COMPARISON: [facility], CR, XR CHEST 1V, 09/14/2024, 14:45. [facility], CT, CT HEAD/BRAIN WO CON, 01/13/2024, 9:41. FINDINGS: Image quality: Mild streak artifact can be seen through the skull base. CSF spaces: Basal cisterns are patent. No extra-axial fluid collections. The ventricles are symmetric in size and shape. Brain: No intracranial bleeds or masses. There is cerebral volume loss for age, with resultant ventricular and sulcal prominence. There are periventricular and deep white matter chronic small vessel ischemic changes. There is intracranial internal carotid artery atherosclerosis. Skull and face: Calvarium and visualized facial bones appear intact, without suspicious lesions. Sinuses: Visualized sinuses and mastoids are clear. IMPRESSION: No acute intracranial hemorrhage is seen. No acute intracranial pathology. To the limits of this noncontrast study, no findings of intracranial masses or mass effect can be seen. Dictated by: Mitchell Lnog M.D. on 09/14/2024 at 16:03 Approved by: Mitchell Long M.D. on 09/14/2024 at 16:04
[2024-09-14 17:19] LABS: Adenovirus Not Detected (Not Detect); B. parapertussis Not Detected (Not Detecte); Bordetella pertussis Not Detected (Not Detect); Chlamydophila pneumoniae Not Detected (Not Detect); Coronavirus 229E Not Detected (Not Detect); Coronavirus HKU1 Not Detected (Not Detect); Coronavirus NL 63 Not Detected (Not Detect); Coronavirus OC43 Not Detected (Not Detect); Human Metapneumovirus Not Detected (Not Detect); Human Rhinovirus/Enterovirus Not Detected (Not Detect); Influenza A Not Detected (Not Detect); Influenza B Not Detected (Not Detect); Mycoplasma pneumoniae Not Detected (Not Detect); Parainfluenza Virus 1 Not Detected (Not Detect); Parainfluenza Virus 2 Not Detected (Not Detect); Parainfluenza Virus 3 Not Detected (Not Detect); Parainfluenza Virus 4 Not Detected (Not Detect); Respiratory Syncytial Virus Not Detected (Not Detect); SARS- CoV-2 Not Detected (Not Detecte)
== END 2024-09-14 19:20 | disposition home or self-care (01) ==
PROVIDERS: Emergency Medicine; Emergency Provider Student in an Organized Health Care Education/Training Program; PCP Family Medicine
DX: F03.90 Unspecified dementia, unspecified severity, without behavioral disturbance, psychotic disturbance, mood disturbance, and anxiety (principal); I48.91 Unspecified atrial fibrillation; Z79.01 Long term (current) use of anticoagulants; I45.10 Unspecified right bundle-branch block
CPT/HCPCS: 36415; 70450; 71045; 80053; 80305; 81003; 81015; 82140; 85025; 87086; 87633; 93005; 93010; 99284

== ENCOUNTER → 2024-09-15 18:22 | Outpatient (CLI) | payer OTHER, SELFPAY ==
--- NOTE | 2024-09-15 18:28 | DI.RAD.S_ITS ---
PROCEDURE: XR LUMBAR SPINE 2-3V INDICATIONS: Acute Bilateral low back pain w/o sciatica TECHNIQUE: 3 views of the lumbar spine were acquired. COMPARISON: [facility], , XR LUMBAR SPINE 2-3V, 07/09/2024, 12:28. FINDINGS: Bones: 5 [id number] vertebrae are present. There is leftward curvature. There trace retrolisthesis trace anterolisthesis. Multilevel degenerative disc and foraminal narrowing most severe at L5-S1. Scattered anterior osteophytes most prominent at L1-2.. No vertebral body compression fractures. No suspicious bony lesions. Soft tissues: Overlying bowel gas pattern is normal. No suspicious soft tissue calcifications. 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 Dictated by: Mary Alice Murray M.D. on 09/16/2024 at 16:51 Approved by: Mary Alice Murray M.D. on 09/16/2024 at 16:52
== END ==
PROVIDERS: PCP Family Medicine; Referring Provider Family Medicine; Visit Provider Family Medicine
DX: M48.07 Spinal stenosis, lumbosacral region (principal); M54.50 Low back pain, unspecified; M25.551 Pain in right hip
CPT/HCPCS: 72100

== ENCOUNTER → 2024-10-03 10:50 | Outpatient (CLI) | payer OTHER, SELFPAY ==
--- NOTE | 2024-10-03 | DI.MRI.S_ITS ---
PROCEDURE: MR STROKE Pre- and post-contrast brain MRI, non-contrast brain MR angiogram, pre- and postcontrast neck MR angiogram INDICATIONS: Other hallucinations TECHNIQUE: Brain: Noncontrast axial T1 spin echo, axial T2 fast spin echo, sagittal and axial FLAIR, coronal T2 fast spin echo, axial gradient echo, axial diffusion and ADC through the brain. After the administration of contrast, axial 3D VIBE of the cranial vasculature and brain. Brain MRA: Non-contrast 3-D time of flight MR angiogram, with multiple iybuvsb-hbdpmbcjn-cmlshtmhgi (MIP) reformats performed. Neck MRA: Axial and sagittal TruFISP through the neck. Coronal dynamic MR angiogram during administration of contrast in the arterial and venous phases, with 3-dimenstional svwoxfe-hagewsqxw-btxrjtvxok (MIP) reformats constructed from subtraction images. COMPARISON: [facility], MR, MR HEAD/BRAIN W CON, 10/06/2022, 13:14. [facility], CT, CT HEAD/BRAIN WO CON, 09/14/2024, 16:42. FINDINGS: Image quality: Excellent. BRAIN: CSF spaces: Ventricles are normal in size and shape. Basal cisterns are patent. No extra-axial fluid collections. Brain: No intracranial bleeds or mass effects. [place]-white matter interface is normal. Diffusion weighted images show no acute infarct. Normal intravascular flow voids are present. No abnormal intracranial enhancement. Note is made of age-appropriate brain parenchymal volume loss and chronic small vessel ischemic changes, including within the luis m. Skull and face: Calvarial marrow signal is normal. Orbits appear normal. Note is made of bilateral lens replacements. Sinuses: Sinuses and mastoids are clear. Postoperative changes are seen, with bilateral antrectomy. BRAIN MR ANGIOGRAM: Anterior circulation: Intracranial internal carotid arteries are normal in size and flow. There is a diminutive right A1 segment, with a corresponding robust left A1 segment. This is considered to be a normal developmental variant of the [place], of typically no clinical consequence. The flow within the paired anterior cerebral arteries is otherwise normal and symmetric. The flow within the middle cerebral arteries is normal and symmetric. The anterior communicating artery is seen. No aneurysms are seen. Posterior circulation: The visualized portions of the vertebral arteries demonstrate normal caliber, and join to form a normal appearing basilar artery. The flow within the posterior cerebral arteries is normal and symmetric. No stenoses, occlusions, or aneurysms. NECK MR ANGIOGRAM: Carotids: Great vessels demonstrate a conventional anatomy as they arise from the aortic arch. The origins of the common carotid arteries appear patent. The calibers and courses of both common carotid arteries are normal. The bifurcation regions appear normal bilaterally. The internal carotid arteries demonstrate normal course and caliber. Posterior circulation: The origins of the vertebral arteries appear patent. More superior portions of both vertebral arteries demonstrate normal course and caliber, and join to form a normal appearing basilar artery. Miscellaneous: Subclavian arteries appear patent. Pre-contrast images through the neck show no soft tissue abnormalities. IMPRESSION: BRAIN MRI: No findings of acute or subacute infarction can be seen. No prior territorial infarct can be seen. No masses or abnormal enhancement can be seen. BRAIN MR ANGIOGRAM: No significant intracranial arterial abnormality is seen. NECK MR ANGIOGRAM: Within the arteries of the neck, no hemodynamically significant stenosis can be seen. Dictated by: Mitchell Long M.D. on 10/05/2024 at 9:49 Approved by: Mitchell Long M.D. on 10/05/2024 at 9:53
== END ==
PROVIDERS: PCP Family Medicine; Referring Provider Family Medicine; Visit Provider Family Medicine
DX: R44.2 Other hallucinations (principal); G31.84 Mild cognitive impairment of uncertain or unknown etiology
CPT/HCPCS: 70544; 70549; 70553; A9579

== ENCOUNTER 2024-10-19 14:55 | Emergency (ER) | payer OTHER, SELFPAY ==
[2024-10-19] VITALS (13 sets, daily range): BP systolic 133–187; BP diastolic 64–100; PULSE 70–85; RESP 15–30; TEMP 36.7; O2SAT 94–98
--- NOTE | 2024-10-19 15:14 | DI.CT.S_ITS ---
PROCEDURE: CT FACIAL BONES WO CON INDICATIONS: fall on eliquis/ trauma to nose TECHNIQUE: Noncontrast 2.5 mm thick axial images acquired from the mandible through the frontal sinuses, with coronal and sagittal reformatting. For radiation dose reduction, the following was used: automated exposure control, adjustment of mA and/or kV according to patient size. COMPARISON: [facility], CT, CT HEAD/BRAIN WO CON, 10/19/2024, 15:16. FINDINGS: Image quality: Diagnostic Bones: Mildly displaced nasal bone fracture. No nasal septum deviation. The zygomatic arches are intact. Mandible appears intact. Orbital castillo appear intact. Pterygoid plates appear intact. Sinuses and mastoids: Postsurgical changes of the paranasal sinuses. Fluid is seen in the maxillary sinuses and frontal sinuses. Mastoids are clear. Soft tissues: Soft tissue swelling is seen around the nose. Globes appear intact. Brain: Separately dictated IMPRESSION: Mildly displaced nasal bone fracture with surrounding soft tissue swelling. Postsurgical changes of the paranasal sinuses, with partial opacification and fluid. Dictated by: Leonard Miramontes M.D. on 10/19/2024 at 16:11 Approved by: Leonard Miramontes M.D. on 10/19/2024 at 16:14
--- NOTE | 2024-10-19 15:14 | DI.CT.S_ITS ---
PROCEDURE: CT HEAD/BRAIN WO CON INDICATIONS: fall on eliquis/ trauma to nose TECHNIQUE: Noncontrast 4.5 mm thick angled axial sections acquired from the foramen magnum to the vertex, with coronal and sagittal reformats. For radiation dose reduction, the following was used: automated exposure control, adjustment of mA and/or kV according to patient size. COMPARISON: [facility], CT, CT FACIAL BONES WO CON, 10/19/2024, 15:16. [facility], CT, CT HEAD/BRAIN WO CON, 09/14/2024, 16:42. [facility], CT, CT CERVICAL SPINE WO CON, 10/19/2024, 15:16. [facility], CT, CT HEAD/BRAIN WO CON, 01/13/2024, 9:41. FINDINGS: Image quality: There is artifact associated with the metallic hardware. Artifact from the metallic hardware is reduced by metal reconstruction algorithm. Mild streak artifact can be seen through the skull base. CSF spaces: Basal cisterns are patent. No extra-axial fluid collections. The ventricles are symmetric in size and shape. Brain: No intracranial bleeds or masses. There is cerebral volume loss for age, with resultant ventricular and sulcal prominence. There are periventricular and deep white matter chronic small vessel ischemic changes. There is intracranial internal carotid artery atherosclerosis. Symmetric calcification can be seen involving the basal ganglia, which is considered to be normal for age. Skull and face: No definite displaced nasal bone fractures can be seen. No displaced calvarial fracture is seen. Sinuses: Moderate mucosal thickening can be seen involving the maxillary sinuses, with the air blood levels. Prior postoperative change can be seen, with antrectomy. IMPRESSION: No definite displaced nasal bone fractures are seen. Layering blood can be seen within the maxillary sinuses. No acute intracranial hemorrhage is seen. No acute intracranial process is seen. Dictated by: Mitchell Long M.D. on 10/19/2024 at 14:42 Approved by: Mitchell Long M.D. on 10/19/2024 at 14:46
--- NOTE | 2024-10-19 15:14 | DI.CT.S_ITS ---
PROCEDURE: CT CERVICAL SPINE WO CON INDICATIONS: fall on eliquis/ trauma to nose TECHNIQUE: Noncontrast 3 mm thick sections acquired from the skull base to the T4 level. Sagittal and coronal reformats were then constructed. For radiation dose reduction, the following was used: automated exposure control, adjustment of mA and/or kV according to patient size. COMPARISON: [facility], CT, CT HEAD/BRAIN WO CON, 10/19/2024, 15:16. [facility], CT, CT FACIAL BONES WO CON, 10/19/2024, 15:16. [facility], CT, CT CERVICAL SPINE WO CON, 01/13/2024, 9:41. FINDINGS: Image quality: Excellent. Bones: No fractures or dislocations. Visualized superior ribs are intact. Focal degenerative change is seen involving the C1-C2 interface anteriorly. There is moderate disc space narrowing seen at C5-C6 and C6-C7. Multiple levels of significant facet hypertrophy can be seen. Soft tissues: Prevertebral soft tissues are normal in thickness. No paravertebral hematomas. No apical pneumothoraces. IMPRESSION: No displaced fracture or traumatic subluxation. Multiple levels of cervical spine degenerative change can be seen, which are worst inferiorly. Dictated by: Mitchell Long M.D. on 10/19/2024 at 14:47 Approved by: Mitchell Long M.D. on 10/19/2024 at 14:47
--- NOTE | 2024-10-19 15:28 | EKG_ITS ---
[address] [address] Test Date: 2024-10-19 Pat Name: Calvin Irwin Department: Room: Gender: Male Quality Compliance Consultant: NICKYTRAE : 1940 Requested By: Order Number: [id number] Reading MD: Sy Carrillo Measurements Intervals [place] Rate: 76 P: NM: QRS: -26 QRSD: 146 T: -6 QT: 392 QTc: 441 Interpretive Statements Atrial fibrillation Right bundle branch block Inferior infarct , age undetermined Electronically Signed On 10-20-2024 19:42:46 PST by Sy Carrillo
[2024-10-19 18:26] LABS: Add Manual Diff / Slide Review NO; Basophils Absolute Auto 100 /uL (0-100); Basophils Percent Auto 0.7 % (0-2); Eosinophils Absolute Auto 200 /uL (0-450); Eosinophils Percent Auto 1.7 % (2-4); Hematocrit 54.6 % (41-53); Hemoglobin 18.2 g/dL (13.5-17.5); Lymphocytes Absolute Auto 1800 /uL (1100-4500); Lymphocytes Percent Auto 13.8 % (25-40); Mean Corpuscular HGB Conc 33.3 % (30-36); Mean Corpuscular Hemoglobin 30.4 PG (26-34); Mean Corpuscular Volume 91.2 fL (80-100); Monocytes Absolute Auto 1200 /uL (0-900); Neutrophils Absolute Auto 9600 /uL (1500-7000); Neutrophils Percent Auto 74.8 % (50-75); Platelet Count 236 X10^3/uL (150-400); Red Blood Cell Count 5.98 X10^6/uL (4.5-5.9); Red Cell Distribution Width 14.4 % (11.6-14.8); White Blood Cell Count 12.8 X10^3/uL (4.5-11.0)
[2024-10-19 19:16] LABS: Alanine Aminotransferase 34 IU/L (<50); Albumin 4.5 g/dL (3.5-5.0); Albumin Globulin Ratio 1.3 (1.0-2.8); Alkaline Phosphatase 78 U/L (38-126); Aspartate Aminotransferase 45 IU/L (17-59); BUN Creatinine Ratio 12.8 (6-22); Bilirubin Total 1.4 mg/dL (0.2-1.3); Blood Urea Nitrogen 18 mg/dL (9-20); Calcium 9.4 mg/dL (8.4-10.2); Carbon Dioxide 27 mmol/L (22-32); Chloride 100 mmol/L (98-107); Creatine Kinase 177 U/L (55-170); Estimated Glomerular Filt Rate 49 mL/min (>60); Globulin 3.4 g/dL (1.7-4.1); Glucose 93 mg/dL (80-110); HEMOLYSIS 18 (0-50); Potassium 4.9 mmol/L (3.4-5.1); Sodium 136 mmol/L (137-145); Total Protein 7.9 g/dL (6.3-8.2)
[2024-10-19 19:27] LABS: Troponin I < 0.012 ng/mL (0.01-0.034)
--- NOTE | 2024-10-19 19:43 | ED_ITS ---
HPI - General Adult General Chief complaint: Trauma Stated complaint: fall, blood thinners Time Seen by Provider: 10/19/24 17:55 Source: patient and family Mode of arrival: Ambulatory Limitations: no limitations History of Present Illness HPI narrative: Patient is a 84-year-old male. Is on anticoagulation. Is here for evaluation of injuries that he sustained when he tripped and fell forward today. Patient states he thinks that he tripped over some rugs at home. His seems to think that maybe just lost his balance and fell forward. He did hit his nose on the ground. He sustained a bloody nose afterwards. There was unsure if there was any loss of consciousness. No vomiting. He did recently have a bloody nose cauterized by ENT. Patient denies chest pain, shortness of breath, palpitations, lightheadedness or headache. No abdominal or nausea or vomiting. Reports no extremity injuries. Imaging studies ordered prior to my evaluation. Related Data Home Medications Medication Instructions Recorded Confirmed aspirin 81 mg tablet,delayed 81 mg PO DAILY ##0 03/15/11 04/22/18 release CA PANTOTHENATE/FOLIC ACID/VIT 1 tab PO QDAY ##0 05/18/13 04/22/18 (MULTIVITAMIN) Lanolin/Mineral Oil/Petrolat 30 ml OP QDAY ##0 05/18/13 04/22/18 (ARTIFICIAL TEARS) oxymetazoline 0.05 % nasal spray 1 spray intranasal QDAY ##0 05/18/13 04/22/18 (Afrin (oxymetazoline)) [CRANBERRY] 300 mg PO QDAY ##0 07/01/13 04/22/18 cholecalciferol (vitamin D3) 25 1,000 unit PO DAILY 04/08/18 04/22/18 mcg (1,000 unit) capsule (Vitamin D3) colchicine 0.6 mg tablet 0.6 mg PO DAILY 04/08/18 04/22/18 cyanocobalamin (vitamin B-12) 1,000 mcg PO DAILY 04/08/18 04/22/18 1,000 mcg tablet (Vitamin B-12) docusate sodium 50 mg capsule 1 tab PO DAILY 04/08/18 04/22/18 (Stool Softener) latanoprost 0.005 % eye drops 1 drp EYE-BOTH DAILY 04/08/18 04/22/18 levothyroxine 75 mcg tablet 75 mcg PO DAILY 04/08/18 04/22/18 (Synthroid) metoprolol succinate 25 mg 25 mg PO DAILY 04/08/18 04/22/18 tablet,extended release 24 hr omeprazole 20 mg capsule,delayed See Rx Instructions .Route .COMPLEX 04/08/18 04/22/18 release simvastatin 10 mg tablet 10 mg PO QPM 04/08/18 04/22/18 warfarin 2.5 mg tablet See Rx Instructions .Route .COMPLEX 04/08/18 04/22/18 warfarin 5 mg tablet See Rx Instructions .Route .COMPLEX 04/08/18 04/22/18 Previous Rx's Medication Instructions Recorded nitroglycerin 0.4 mg sublingual 0.4 mg sublingual PRN ##25 10/20/12 tablet (Nitrostat) ondansetron 4 mg disintegrating 4 mg PO TID PRN nausea and 08/05/18 tablet vomiting #6 tabs Allergies Allergy/AdvReac Type Severity Reaction Status Date / Time venom-honey bee Allergy Severe SOB Verified 01/13/24 10:31 [bee venom (honey bee)] amoxicillin Allergy Mild AGITATION,SKIN Verified 01/13/24 10:31 CRAWL ciprofloxacin Allergy Mild JOINT Verified 01/13/24 10:31 SWELLING, WHITE BM, RED RASH Penicillins Allergy Mild RASH Verified 01/13/24 10:31 sulfamethoxazole Allergy Unknown AGITATION,SKIN Verified 01/13/24 10:31 [From ] CRAWL trimethoprim [From ] Allergy Unknown AGITATION,SKIN Verified 01/13/24 10:31 CRAWL Review of Systems Review of Systems ROS Unobtainable: All systems reviewed & are unremarkable except as noted in HPI and below Patient History Social History household members: spouse Smoking Status: Never smoker Smoking Status: Never smoker alcohol intake frequency: a few times a week Exam Initial Vital Signs Initial Vital Signs: Vital Signs Temperature 98.0 F 10/19/24 15:11 Pulse Rate 84 10/19/24 15:11 Respiratory Rate 18 10/19/24 15:11 Blood Pressure 152/72 H 10/19/24 15:11 Pulse Oximetry 98 10/19/24 15:11 Oxygen Delivery Method Room Air 10/19/24 15:11 Const General: cooperative, comfortable and No ill appearing HENTN Head: normal to inspection and normocephalic Nose: other ([place] in left nares. No active bleeding.) Eyes General: Yes appearance normal, both eyes and all related structures Eyelids: eyelids normal Resp Effort & Inspection: normal respiratory effort Cardio Rate: regular rate Back/Spine/Pelvis Cervical Spine: No cervical spinal tenderness Skin Other: Contusions over bridge of nose Neuro General: patient alert, patient awake and moves all extremities Speech: speech normal Gait: normal gait Extrem General: capillary refill normal Other: No gross deformities Course Orders Ordered: ED Orders 10/19/24 15:10 CBC Auto Diff [Complete Blood Count AUTO DIFF] Stat CMP [Comprehensive Metabolic Panel] Stat Troponin & CK Cardiac Panel Stat 10/19/24 15:14 CT cervical spine wo con Stat CT facial bones wo con Stat CT head/brain wo con Stat 10/19/24 15:28 EKG-12 Lead Routine Vital Signs Vital signs: Vital Signs - 8 hr 10/19/24 18:30 10/19/24 18:30 10/19/24 19:00 Pulse Rate 70 71 Respiratory Rate 20 20 Blood Pressure 155/83 H Pulse Oximetry 97 96 Oxygen Delivery Method 10/19/24 19:01 10/19/24 19:01 10/19/24 19:30 Pulse Rate 75 85 Respiratory Rate 24 18 Blood Pressure 147/83 H 167/100 H Pulse Oximetry 96 96 Oxygen Delivery Method Room Air 10/19/24 19:34 Pulse Rate 85 Respiratory Rate 16 Blood Pressure 187/74 H Pulse Oximetry 97 Oxygen Delivery Method Room Air Medical Decision Making Lab Data Lab results reviewed: Yes I reviewed the patient's lab results. 10/19/24 15:10 10/19/24 15:10 Labs: Lab Results 10/19/24 Range/Units 15:10 WBC 12.8 H (4.5-11.0) X10^3/uL RBC 5.98 H (4.5-5.9) X10^6/uL Hgb 18.2 H (13.5-17.5) g/dL Hct 54.6 H (41-53) % MCV 91.2 (80-100) fL MCH 30.4 (26-34) PG MCHC 33.3 (30-36) % RDW 14.4 (11.6-14.8) % Plt Count 236 (150-400) X10^3/uL Neut % (Auto) 74.8 (50-75) % Lymph % (Auto) 13.8 L (25-40) % Millard % (Auto) 9.0 (3-14) % Eos % (Auto) 1.7 L (2-4) % Baso % (Auto) 0.7 (0-2) % Neut # (Auto) 9600 H (0993-7347) /uL Lymph # (Auto) 1800 (7913-4724) /uL Millard # (Auto) 1200 H (0-900) /uL Eos # (Auto) 200 (0-450) /uL Baso # (Auto) 100 (0-100) /uL Sodium 136 L (137-145) mmol/L Potassium 4.9 (3.4-5.1) mmol/L Chloride 100 (98-107) mmol/L Carbon Dioxide 27 (22-32) mmol/L BUN 18 (9-20) mg/dL Creatinine 1.41 H (0.66-1.25) mg/dL Estimated GFR 49 L (>60) mL/min BUN/Creatinine Ratio 12.8 (6-22) Glucose 93 (80-110) mg/dL Calcium 9.4 (8.4-10.2) mg/dL Total Bilirubin 1.4 H (0.2-1.3) mg/dL AST 45 (17-59) IU/L ALT 34 (<50) IU/L Alkaline Phosphatase 78 (38-126) U/L Total Creatine Kinase 177 H (55-170) U/L Troponin I < 0.012 (0.01-0.034) ng/mL Total Protein 7.9 (6.3-8.2) g/dL Albumin 4.5 (3.5-5.0) g/dL Globulin 3.4 (1.7-4.1) g/dL Albumin/Globulin Ratio 1.3 (1.0-2.8) Urine Dip Bedside Urine Glucose Negative Bedside Urine Bilirubin - Negative Bedside Urine Ketone - Negative Urine Specific [place] 1.015 Bedside Urine Occult Blood - Negative Bedside Urine pH 6.5 Bedside Urine Protein - Negative Bedside Urine Urobilinogen - Negative Bedside Urine Nitrite - Negative Bedside Urine Leukocytes - Negative Esterase Point of care testing: Urine Dip Bedside Urine Glucose Negative Bedside Urine Bilirubin - Negative Bedside Urine Ketone - Negative Urine Specific [place] 1.015 Bedside Urine Occult Blood - Negative Bedside Urine pH 6.5 Bedside Urine Protein - Negative Bedside Urine Urobilinogen - Negative Bedside Urine Nitrite - Negative Bedside Urine Leukocytes - Negative Esterase Imaging Data CT - cervical spine: Radiologist's Impression: PROCEDURE: CT CERVICAL SPINE WO CON INDICATIONS: fall on eliquis/ trauma to nose TECHNIQUE: Noncontrast 3 mm thick sections acquired from the skull base to the T4 level. Sagittal and coronal reformats were then constructed. For radiation dose reduction, the following was used: automated exposure control, adjustment of mA and/or kV according to patient size. COMPARISON: [facility], CT, CT HEAD/BRAIN WO CON, 10/19/2024, 15:16. [facility], CT, CT FACIAL BONES WO CON, 10/19/2024, 15:16. [facility], CT, CT CERVICAL SPINE WO CON, 01/13/2024, 9:41. FINDINGS: Image quality: Excellent. Bones: No fractures or dislocations. Visualized superior ribs are intact. Focal degenerative change is seen involving the C1-C2 interface anteriorly. There is moderate disc space narrowing seen at C5-C6 and C6-C7. Multiple levels of significant facet hypertrophy can be seen. Soft tissues: Prevertebral soft tissues are normal in thickness. No paravertebral hematomas. No apical pneumothoraces. IMPRESSION: No displaced fracture or traumatic subluxation. Multiple levels of cervical spine degenerative change can be seen, which are worst inferiorly. CT face: Radiologist's Impression: PROCEDURE: CT FACIAL BONES WO CON INDICATIONS: fall on eliquis/ trauma to nose TECHNIQUE: Noncontrast 2.5 mm thick axial images acquired from the mandible through the frontal sinuses, with coronal and sagittal reformatting. For radiation dose reduction, the following was used: automated exposure control, adjustment of mA and/or kV according to patient size. COMPARISON: [facility], CT, CT HEAD/BRAIN WO CON, 10/19/2024, 15:16. FINDINGS: Image quality: Diagnostic Bones: Mildly displaced nasal bone fracture. No nasal septum deviation. The zygomatic arches are intact. Mandible appears intact. Orbital castillo appear intact. Pterygoid plates appear intact. Sinuses and mastoids: Postsurgical changes of the paranasal sinuses. Fluid is seen in the maxillary sinuses and frontal sinuses. Mastoids are clear. Soft tissues: Soft tissue swelling is seen around the nose. Globes appear intact. Brain: Separately dictated IMPRESSION: Mildly displaced nasal bone fracture with surrounding soft tissue swelling. Postsurgical changes of the paranasal sinuses, with partial opacification and fluid. CT scan - head: Radiologist's Impression: PROCEDURE: CT HEAD/BRAIN WO CON INDICATIONS: fall on eliquis/ trauma to nose TECHNIQUE: Noncontrast 4.5 mm thick angled axial sections acquired from the foramen magnum to the vertex, with coronal and sagittal reformats. For radiation dose reduction, the following was used: automated exposure control, adjustment of mA and/or kV according to patient size. COMPARISON: [facility], CT, CT FACIAL BONES WO CON, 10/19/2024, 15:16. [facility], CT, CT HEAD/BRAIN WO CON, 09/14/2024, 16:42. [facility], CT, CT CERVICAL SPINE WO CON, 10/19/2024, 15:16. [facility], CT, CT HEAD/BRAIN WO CON, 01/13/2024, 9:41. FINDINGS: Image quality: There is artifact associated with the metallic hardware. Artifact from the metallic hardware is reduced by metal reconstruction algorithm. Mild streak artifact can be seen through the skull base. CSF spaces: Basal cisterns are patent. No extra-axial fluid collections. The ventricles are symmetric in size and shape. Brain: No intracranial bleeds or masses. There is cerebral volume loss for age, with resultant ventricular and sulcal prominence. There are periventricular and deep white matter chronic small vessel ischemic changes. There is intracranial internal carotid artery atherosclerosis. Symmetric calcification can be seen involving the basal ganglia, which is considered to be normal for age. Skull and face: No definite displaced nasal bone fractures can be seen. No displaced calvarial fracture is seen. Sinuses: Moderate mucosal thickening can be seen involving the maxillary sinuses, with the air blood levels. Prior postoperative change can be seen, with antrectomy. IMPRESSION: No definite displaced nasal bone fractures are seen. Layering blood can be seen within the maxillary sinuses. No acute intracranial hemorrhage is seen. No acute intracranial process is seen. ECG Data Attestation: I personally reviewed and interpreted this ECG as follows: Interpretation: Atrial fibrillation Ventricular rate is [address] T wave changes MDM Narrative Medical decision making narrative: CT scan does show a nasal bone fracture. No deviation to the nasal bone on exam. He does not have any active bleeding. No bloody nose. No extremity injuries. Is ambulatory. Moves all 4 extremities equally. No intracranial hemorrhage. Will discharge patient home with return precautions. Both patient and expressed understanding and agreement with the plan. They were informed of the findings of the CT scans. Discharge Plan Departure Patient Disposition: Home Clinical Impression: Fracture of nasal bone, Fall Instructions: DI for Nose Fracture Activity Restrictions/Additional Instructions: Recommend that you continue to take all of your medications as directed. Contact your primary doctor for a follow-up. Return to the emergency department for new or worsening symptoms. Prescriptions: No Action aspirin 81 mg Tablet,Delayed Release (Dr/Ec) 81 mg PO DAILY Qty: 0 nitroglycerin [Nitrostat] 0.4 MG tablet, sublingual 0.4 mg Sublingual PRN Qty: 25 1RF CA PANTOTHENATE/FOLIC ACID/VIT (MULTIVITAMIN) 1 tab PO QDAY Qty: 0 Lanolin/Mineral Oil/Petrolat (ARTIFICIAL TEARS) 30 ml OP QDAY Qty: 0 oxymetazoline [Afrin (oxymetazoline)] 0.05 % spray,non-aerosol 1 spray Intranasal QDAY Qty: 0 [CRANBERRY] 300 mg PO QDAY Qty: 0 docusate sodium [Stool Softener] 50 mg Capsule 1 tab PO DAILY latanoprost 0.005 % Drops 1 drp EYE-BOTH DAILY simvastatin 10 mg Tablet 10 mg PO QPM cyanocobalamin (vitamin B-12) [Vitamin B-12] 1,000 mcg Tablet 1,000 mcg PO DAILY warfarin 2.5 mg Tablet See Rx Instructions .ROUTE .COMPLEX Rx Instructions: 2.5 mg orally Mon, Wed, Fri levothyroxine [Synthroid] 75 mcg Tablet 75 mcg PO DAILY warfarin 5 mg Tablet See Rx Instructions .ROUTE .COMPLEX Rx Instructions: 5 mg orally Sat, Sat, , omeprazole 20 mg Capsule,Delayed Release(Dr/Ec) See Rx Instructions .ROUTE .COMPLEX Rx Instructions: 20 mg orally Sat and Wed metoprolol succinate 25 mg Tablet Extended Release 24 Hr 25 mg PO DAILY colchicine 0.6 mg Tablet 0.6 mg PO DAILY cholecalciferol (vitamin D3) [Vitamin D3] 1,000 unit Capsule 1,000 unit PO DAILY ondansetron 4 mg tablet,disintegrating 4 mg PO TID PRN (Reason: nausea and vomiting) Qty: 6 0RF Referrals: Leann Sutherland MD [Primary Care Provider] - Stand Alone Forms: Patient Portal/API/Survey
== END 2024-10-19 19:50 | disposition home or self-care (01) ==
PROVIDERS: Emergency Medicine; Emergency Provider Emergency Medicine; PCP Family Medicine
DX: S02.2XXA Fracture of nasal bones, initial encounter for closed fracture (principal); I48.91 Unspecified atrial fibrillation; I45.10 Unspecified right bundle-branch block; R04.0 Epistaxis; Z79.01 Long term (current) use of anticoagulants; W01.0XXA Fall on same level from slipping, tripping and stumbling without subsequent striking against object, initial encounter
CPT/HCPCS: 70450; 70486; 72125; 80053; 81003; 82550; 84484; 85025; 93005; 99283; 99284

== ENCOUNTER 2024-11-28 13:25 | Emergency (ER) | payer OTHER, SELFPAY ==
[2024-11-28] VITALS (7 sets, daily range): BP systolic 133–155; BP diastolic 65–88; PULSE 52–71; RESP 16–23; O2SAT 96–100; BMI 24.4
--- NOTE | 2024-11-28 13:30 | DI.CT.S_ITS ---
PROCEDURE: CT HEAD/BRAIN WO CON INDICATIONS: AMS/NONRESPONSIVE X 2 HRS TECHNIQUE: Noncontrast 4.5 mm thick angled axial sections acquired from the foramen magnum to the vertex, with coronal and sagittal reformats. For radiation dose reduction, the following was used: automated exposure control, adjustment of mA and/or kV according to patient size. COMPARISON: [facility], CT, CT HEAD/BRAIN WO CON, 10/19/2024, 15:16. FINDINGS: Image quality: Diagnostic. CSF spaces: Basal cisterns are patent. No extra-axial fluid collections. The ventricles are symmetric in size and shape. Brain: No intracranial bleeds or masses. There is cerebral volume loss for age, with resultant ventricular and sulcal prominence. There are periventricular and deep white matter chronic small vessel ischemic changes. There is intracranial internal carotid artery atherosclerosis. Skull and face: Calvarium and visualized facial bones appear intact, without suspicious lesions. Sinuses: Visualized sinuses and mastoids are clear. IMPRESSION: No acute intracranial pathology. Dictated by: Uri June M.D. on 11/28/2024 at 14:01 Approved by: Uri June M.D. on 11/28/2024 at 14:02
--- NOTE | 2024-11-28 13:31 | EKG_ITS ---
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
--- NOTE | 2024-11-28 13:31 | DI.RAD.S_ITS ---
PROCEDURE: XR CHEST 1V INDICATIONS: AMS TECHNIQUE: One view of the chest was acquired. COMPARISON: [facility], CR, XR CHEST 1V, 09/14/2024, 14:45. FINDINGS: Surgical changes and devices: None. Lungs and pleura: Possible left basilar opacity. No pleural effusions or pneumothorax. Mediastinum: Mediastinal contours appear normal. Heart size is normal. Bones and chest wall: No suspicious bony lesions. Overlying soft tissues appear unremarkable. IMPRESSION: Possible left basilar/retrocardiac opacity. Findings may represent effusion, atelectasis or consolidation. Dictated by: Uri June M.D. on 11/28/2024 at 14:00 Approved by: Uri June M.D. on 11/28/2024 at 14:01
[2024-11-28 13:37] LABS: Add Manual Diff / Slide Review NO; Basophils Absolute Auto 100 /uL (0-100); Basophils Percent Auto 1.3 % (0-2); Eosinophils Absolute Auto 300 /uL (0-450); Eosinophils Percent Auto 3.3 % (2-4); Hematocrit 50.5 % (41-53); Hemoglobin 16.9 g/dL (13.5-17.5); Lymphocytes Absolute Auto 2500 /uL (1100-4500); Lymphocytes Percent Auto 23.4 % (25-40); Mean Corpuscular HGB Conc 33.4 % (30-36); Mean Corpuscular Hemoglobin 30.1 PG (26-34); Mean Corpuscular Volume 89.9 fL (80-100); Monocytes Absolute Auto 1100 /uL (0-900); Monocytes Percent Auto 10.7 % (3-14); Neutrophils Absolute Auto 6500 /uL (1500-7000); Neutrophils Percent Auto 61.3 % (50-75); Platelet Count 213 X10^3/uL (150-400); Red Blood Cell Count 5.62 X10^6/uL (4.5-5.9); Red Cell Distribution Width 14.8 % (11.6-14.8); White Blood Cell Count 10.6 X10^3/uL (4.5-11.0)
[2024-11-28 13:46] LABS: INR 1.2 (0.9-1.3); Prothrombin Time 13.1 SECONDS (9.4-12.5)
[2024-11-28 13:51] LABS: Lactate (Lactic Acid) 1.4 mmol/L (0.7-2.1)
[2024-11-28 13:52] LABS: Alanine Aminotransferase 25 IU/L (<50); Albumin 4.4 g/dL (3.5-5.0); Albumin Globulin Ratio 1.3 (1.0-2.8); Alkaline Phosphatase 60 U/L (38-126); Aspartate Aminotransferase 36 IU/L (17-59); Bilirubin Total 0.9 mg/dL (0.2-1.3); Blood Urea Nitrogen 15 mg/dL (9-20); Calcium 9.3 mg/dL (8.4-10.2); Carbon Dioxide 27 mmol/L (22-32); Chloride 100 mmol/L (98-107); Estimated Glomerular Filt Rate 51 mL/min (>60); Globulin 3.4 g/dL (1.7-4.1); Glucose 111 mg/dL (80-110); HEMOLYSIS 28 (0-50); Potassium 4.4 mmol/L (3.4-5.1); Sodium 135 mmol/L (137-145); Total Protein 7.8 g/dL (6.3-8.2)
--- NOTE | 2024-11-28 13:56 | ED_ITS ---
HPI - General Adult General Chief complaint: Unresponsive Stated complaint: Unresponsive Time Seen by Provider: 11/28/24 13:30 History of Present Illness HPI narrative: 84-year-old male with history of dementia presents by EMS from home for unresponsiveness. Patient apparently went to go lay down for a nap around lunchtime. Family went to go check on him and could not wake him up and so they called 911. Patient has pulsed form with him. He is listed as DNR/selective treatment. Patient was initially unresponsive, however within 5 minutes of arriving to the ER he woke up and began conversing with ED staff and radiology staff. He denied pain or other complaints. Related Data Home Medications Medication Instructions Recorded Confirmed aspirin 81 mg tablet,delayed 81 mg PO DAILY ##0 03/15/11 04/22/18 release CA PANTOTHENATE/FOLIC ACID/VIT 1 tab PO QDAY ##0 05/18/13 04/22/18 (MULTIVITAMIN) Lanolin/Mineral Oil/Petrolat 30 ml OP QDAY ##0 05/18/13 04/22/18 (ARTIFICIAL TEARS) oxymetazoline 0.05 % nasal spray 1 spray intranasal QDAY ##0 05/18/13 04/22/18 (Afrin (oxymetazoline)) [CRANBERRY] 300 mg PO QDAY ##0 07/01/13 04/22/18 cholecalciferol (vitamin D3) 25 1,000 unit PO DAILY 04/08/18 04/22/18 mcg (1,000 unit) capsule (Vitamin D3) colchicine 0.6 mg tablet 0.6 mg PO DAILY 04/08/18 04/22/18 cyanocobalamin (vitamin B-12) 1,000 mcg PO DAILY 04/08/18 04/22/18 1,000 mcg tablet (Vitamin B-12) docusate sodium 50 mg capsule 1 tab PO DAILY 04/08/18 04/22/18 (Stool Softener) latanoprost 0.005 % eye drops 1 drp EYE-BOTH DAILY 04/08/18 04/22/18 levothyroxine 75 mcg tablet 75 mcg PO DAILY 04/08/18 04/22/18 (Synthroid) metoprolol succinate 25 mg 25 mg PO DAILY 04/08/18 04/22/18 tablet,extended release 24 hr omeprazole 20 mg capsule,delayed See Rx Instructions .Route .COMPLEX 04/08/18 04/22/18 release simvastatin 10 mg tablet 10 mg PO QPM 04/08/18 04/22/18 warfarin 2.5 mg tablet See Rx Instructions .Route .COMPLEX 04/08/18 04/22/18 warfarin 5 mg tablet See Rx Instructions .Route .COMPLEX 04/08/18 04/22/18 Previous Rx's Medication Instructions Recorded nitroglycerin 0.4 mg sublingual 0.4 mg sublingual PRN ##25 10/20/12 tablet (Nitrostat) ondansetron 4 mg disintegrating 4 mg PO TID PRN nausea and 08/05/18 tablet vomiting #6 tabs Allergies Allergy/AdvReac Type Severity Reaction Status Date / Time venom-honey bee Allergy Severe SOB Verified 01/13/24 10:31 [bee venom (honey bee)] amoxicillin Allergy Mild AGITATION,SKIN Verified 01/13/24 10:31 CRAWL ciprofloxacin Allergy Mild JOINT Verified 01/13/24 10:31 SWELLING, WHITE BM, RED RASH Penicillins Allergy Mild RASH Verified 01/13/24 10:31 sulfamethoxazole Allergy Unknown AGITATION,SKIN Verified 01/13/24 10:31 [From ] CRAWL trimethoprim [From ] Allergy Unknown AGITATION,SKIN Verified 01/13/24 10:31 CRAWL Patient History Social History household members: spouse Smoking Status: Never smoker Smoking Status: Never smoker alcohol intake frequency: a few times a week Exam Initial Vital Signs Initial Vital Signs: Vital Signs Pulse Rate 71 11/28/24 13:27 Respiratory Rate 18 11/28/24 13:27 Pulse Oximetry 99 11/28/24 13:27 Oxygen Delivery Method Room Air 11/28/24 13:27 Const: Awake, alert, debilitated, frail, appears chronically unwell Cardiac: regular rate, regular rhythm RESP: unlabored, clear bilaterally, no wheezing MSK: No edema, full range of motion, pulses equal Skin: Warm, Dry, intact, no rashes Neuro: AO x1, CN II-XII grossly intact, moves all extremities Course Orders Ordered: ED Orders 11/28/24 13:30 CT head/brain wo con Stat 11/28/24 13:31 Chest [XR chest 1V] Stat EKG-12 Lead Stat 11/28/24 13:34 CBC Auto Diff [Complete Blood Count AUTO DIFF] Stat CMP [Comprehensive Metabolic Panel] Stat Lactate (Lactic Acid) Stat PT [Prothrombin Time INR] Stat 11/28/24 15:10 UA Complete [Urinalysis and Microscopic] Stat Vital Signs Vital signs: Vital Signs - 8 hr 11/28/24 13:27 11/28/24 13:31 11/28/24 13:31 Pulse Rate 71 65 Respiratory Rate 18 Blood Pressure 155/88 H Pulse Oximetry 99 99 Oxygen Delivery Method Room Air 11/28/24 14:00 Pulse Rate 52 L Respiratory Rate 23 Blood Pressure Pulse Oximetry 98 Oxygen Delivery Method Room Air Medical Decision Making Lab Data 11/28/24 13:34 11/28/24 13:34 Labs: Lab Results 11/28/24 11/28/24 Range/Units 13:34 15:10 WBC 10.6 (4.5-11.0) X10^3/uL RBC 5.62 (4.5-5.9) X10^6/uL Hgb 16.9 (13.5-17.5) g/dL Hct 50.5 (41-53) % MCV 89.9 (80-100) fL MCH 30.1 (26-34) PG MCHC 33.4 (30-36) % RDW 14.8 (11.6-14.8) % Plt Count 213 (150-400) X10^3/uL Neut % (Auto) 61.3 (50-75) % Lymph % (Auto) 23.4 L (25-40) % [place] % (Auto) 10.7 (3-14) % Eos % (Auto) 3.3 (2-4) % Baso % (Auto) 1.3 (0-2) % Neut # (Auto) 6500 (9529-4300) /uL Lymph # (Auto) 2500 (6702-3666) /uL [place] # (Auto) 1100 H (0-900) /uL Eos # (Auto) 300 (0-450) /uL Baso # (Auto) 100 (0-100) /uL PT 13.1 H (9.4-12.5) SECONDS INR 1.2 (0.9-1.3) Sodium 135 L (137-145) mmol/L Potassium 4.4 (3.4-5.1) mmol/L Chloride 100 (98-107) mmol/L Carbon Dioxide 27 (22-32) mmol/L BUN 15 (9-20) mg/dL Creatinine 1.36 H (0.66-1.25) mg/dL Estimated GFR 51 L (>60) mL/min BUN/Creatinine Ratio 11.0 (6-22) Glucose 111 H (80-110) mg/dL Lactate 1.4 (0.7-2.1) mmol/L Calcium 9.3 (8.4-10.2) mg/dL Total Bilirubin 0.9 (0.2-1.3) mg/dL AST 36 (17-59) IU/L ALT 25 (<50) IU/L Alkaline Phosphatase 60 (38-126) U/L Total Protein 7.8 (6.3-8.2) g/dL Albumin 4.4 (3.5-5.0) g/dL Globulin 3.4 (1.7-4.1) g/dL Albumin/Globulin Ratio 1.3 (1.0-2.8) Urine Color Yellow Urine Appearance Clear Urine pH 7.0 (4.5-8.0) Ur Specific [place] 1.015 (1.000-1.035) Urine Protein Negative (Negative) Urine Glucose (UA) Negative (Negative) g/dL Urine Ketones Negative (NEGATIVE) Urine Occult Blood Negative (Negative) Urine Nitrate Negative (Negative) Urine Bilirubin Negative (NEGATIVE) Urine Urobilinogen 1.0 (0.2) E.U./dL Ur Leukocyte Esterase Negative (NEGATIVE) Urine RBC None seen (0-5/HPF) Urine WBC None seen (0-5/HPF) Ur Squamous Epith Cells None seen (0-5/HPF) Urine Bacteria None seen (None) Ur Culture Indicated? Cult not indicated Vol Urine Centrifuged 10ml (spun) Imaging Data Chest x-ray: Radiologist's Impression: PROCEDURE: XR CHEST 1V INDICATIONS: AMS TECHNIQUE: One view of the chest was acquired. COMPARISON: [facility], , XR CHEST 1V, 09/14/2024, 14:45. FINDINGS: Surgical changes and devices: None. Lungs and pleura: Possible left basilar opacity. No pleural effusions or pneumothorax. Mediastinum: Mediastinal contours appear normal. Heart size is normal. Bones and chest wall: No suspicious bony lesions. Overlying soft tissues appear unremarkable. IMPRESSION: Possible left basilar/retrocardiac opacity. Findings may represent effusion, atelectasis or consolidation. Dictated by: Uri June M.D. on 11/28/2024 at 14:00 Approved by: Uri June M.D. on 11/28/2024 at 14:01 CT scan - head: Radiologist's Impression: PROCEDURE: CT HEAD/BRAIN WO CON INDICATIONS: AMS/NONRESPONSIVE X 2 HRS TECHNIQUE: Noncontrast 4.5 mm thick angled axial sections acquired from the foramen magnum to the vertex, with coronal and sagittal reformats. For radiation dose reduction, the following was used: automated exposure control, adjustment of mA and/or kV according to patient size. COMPARISON: [facility], CT, CT HEAD/BRAIN WO CON, 10/19/2024, 15:16. FINDINGS: Image quality: Diagnostic. CSF spaces: Basal cisterns are patent. No extra-axial fluid collections. The ventricles are symmetric in size and shape. Brain: No intracranial bleeds or masses. There is cerebral volume loss for age, with resultant ventricular and sulcal prominence. There are periventricular and deep white matter chronic small vessel ischemic changes. There is intracranial internal carotid artery atherosclerosis. Skull and face: Calvarium and visualized facial bones appear intact, without suspicious lesions. Sinuses: Visualized sinuses and mastoids are clear. IMPRESSION: No acute intracranial pathology. Dictated by: Uri June M.D. on 11/28/2024 at 14:01 Approved by: Uri June M.D. on 11/28/2024 at 14:02 [facility] Narrative Medical decision making narrative: Patient brought in by 911 for unresponsive episode. Patient initially not responsive on arrival, however less than 5 minutes after arrival to the ER patient woke up and began conversing with myself and other ED staff. Family is now at bedside to provide additional history. states that patient has had poor sleep the last several days despite being on 25 mg nightly of Seroquel. She states that the patient woke up early this morning and seemed fatigued this afternoon. Pending labs and CT imaging. Laboratory work reviewed, no significant abnormalities identified. EKG shows AFib, no ischemic findings or other arrhythmias noted. No electrolyte abnormalities. CT brain negative for acute findings. Chest x-ray negative for acute findings. Patient has been awake and alert since shortly after arrival to the ER without any new symptoms or other unresponsive episodes. No obvious cause for patient's presentation. Family counseled on lab and imaging findings at bedside. Recommended close PCP follow up. asked about medications at night for sleep since the Seroquel does not seem to be helping. Patient was only on a low-dose of Seroquel and can increase to 50 mg. Discharge Plan Departure Patient Disposition: Home Clinical Impression: Altered mental status Instructions: DI for Altered Mental Status Activity Restrictions/Additional Instructions: Blood work and imaging today are normal. There is no sign of urinary tract infection today. I do not know the cause of this episode. Talk to his primary care doctor if he continues to have episodes similar to this Prescriptions: No Action aspirin 81 mg Tablet,Delayed Release (Dr/Ec) 81 mg PO DAILY Qty: 0 nitroglycerin [Nitrostat] 0.4 MG tablet, sublingual 0.4 mg Sublingual PRN Qty: 25 1RF CA PANTOTHENATE/FOLIC ACID/VIT (MULTIVITAMIN) 1 tab PO QDAY Qty: 0 Lanolin/Mineral Oil/Petrolat (ARTIFICIAL TEARS) 30 ml OP QDAY Qty: 0 oxymetazoline [Afrin (oxymetazoline)] 0.05 % spray,non-aerosol 1 spray Intranasal QDAY Qty: 0 [CRANBERRY] 300 mg PO QDAY Qty: 0 docusate sodium [Stool Softener] 50 mg Capsule 1 tab PO DAILY latanoprost 0.005 % Drops 1 drp EYE-BOTH DAILY simvastatin 10 mg Tablet 10 mg PO QPM cyanocobalamin (vitamin B-12) [Vitamin B-12] 1,000 mcg Tablet 1,000 mcg PO DAILY warfarin 2.5 mg Tablet See Rx Instructions .ROUTE .COMPLEX Rx Instructions: 2.5 mg orally Mon, Wed, Fri levothyroxine [Synthroid] 75 mcg Tablet 75 mcg PO DAILY warfarin 5 mg Tablet See Rx Instructions .ROUTE .COMPLEX Rx Instructions: 5 mg orally Sat, Sat, , omeprazole 20 mg Capsule,Delayed Release(Dr/Ec) See Rx Instructions .ROUTE .COMPLEX Rx Instructions: 20 mg orally Sat and Wed metoprolol succinate 25 mg Tablet Extended Release 24 Hr 25 mg PO DAILY colchicine 0.6 mg Tablet 0.6 mg PO DAILY cholecalciferol (vitamin D3) [Vitamin D3] 1,000 unit Capsule 1,000 unit PO DAILY ondansetron 4 mg tablet,disintegrating 4 mg PO TID PRN (Reason: nausea and vomiting) Qty: 6 0RF Referrals: Leann Sutherland MD [Primary Care Provider] - Stand Alone Forms: Naloxone Standing Order [email or web address], Patient Portal/API/Survey
--- NOTE | 2024-11-28 14:02 | PC.NURSE ---
Pt is awake and alert after CT scan completed. Pt is cracking jokes and conversing on topics with staff. Family led back to room 2.
[2024-11-28 15:19] LABS: Appearance Urine UA CLEAR; Bilirubin Urine UA NEGATIVE (NEGATIVE); Color Urine UA YELLOW; Glucose Urine UA NEGATIVE (Negative); Ketones Urine UA NEGATIVE (NEGATIVE); Leukocyte Esterase Urine UA NEGATIVE (NEGATIVE); Nitrite Urine UA NEGATIVE (Negative); Occult Blood Urine UA NEGATIVE (Negative); Protein Urine UA NEGATIVE (Negative); Specific Gravity Urine UA 1.015 (1.000-1.035)
[2024-11-28 15:29] LABS: Urine Volume 10mL (spun)
[2024-11-28 15:31] LABS: Bacteria Urine None Seen; Culture Indicated Urine Cult Not Indicated; RBC Urine None Seen (0-5/HPF); Squamous Epithelial Cell Urine None Seen (0-5/HPF); WBC Urine None Seen (0-5/HPF)
== END 2024-11-28 13:48 | disposition home or self-care (01) ==
PROVIDERS: Emergency Provider Emergency Medicine; PCP Family Medicine
DX: R41.82 Altered mental status, unspecified (principal); F03.90 Unspecified dementia, unspecified severity, without behavioral disturbance, psychotic disturbance, mood disturbance, and anxiety; Z79.01 Long term (current) use of anticoagulants; Z88.2 Allergy status to sulfonamides; I48.91 Unspecified atrial fibrillation; I45.10 Unspecified right bundle-branch block
CPT/HCPCS: 36415; 70450; 71045; 80053; 81001; 83605; 85025; 85610; 93005; 99283; 99284

== ENCOUNTER 2024-12-07 17:21 | Inpatient (IN) | payer OTHER, SELFPAY ==
[2024-12-07] VITALS (19 sets, daily range): BP systolic 146–217; BP diastolic 65–130; PULSE 75–106; RESP 18–31; TEMP 36.2–36.7; O2SAT 96–100; BMI 24.4
--- NOTE | 2024-12-07 17:29 | DI.RAD.S_ITS ---
PROCEDURE: XR CHEST 1V INDICATIONS: altered mental status TECHNIQUE: One view of the chest was acquired. COMPARISON: [facility], CR, XR CHEST 1V, 11/28/2024, 13:33. [facility], CR, XR CHEST 1V, 09/14/2024, 14:45. FINDINGS: Surgical changes and devices: None. Lungs and pleura: Low lung volumes. Retrocardiac opacity previously noted is decreased. No pleural effusions. The far left costophrenic angle however was not seen. Mediastinum: Heart size is borderline enlarged, similar to prior. Bones and chest wall: Degenerative changes. IMPRESSION: Low lung volumes. No dense consolidation or drainable pleural effusion. Previous left retrocardiac opacity is decreased. The far left costophrenic angle was not seen on this study. Dictated by: Leonard Miramontes M.D. on 12/07/2024 at 17:49 Approved by: Leonard Miramontes M.D. on 12/07/2024 at 17:50
--- NOTE | 2024-12-07 17:36 | EKG_ITS ---
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
[2024-12-07 17:37] LABS: Add Manual Diff / Slide Review NO; Basophils Absolute Auto 100 /uL (0-100); Basophils Percent Auto 0.6 % (0-2); Eosinophils Absolute Auto 100 /uL (0-450); Eosinophils Percent Auto 0.5 % (2-4); Hemoglobin 18.4 g/dL (13.5-17.5); Lymphocytes Absolute Auto 1500 /uL (1100-4500); Lymphocytes Percent Auto 9.7 % (25-40); Mean Corpuscular HGB Conc 33.4 % (30-36); Mean Corpuscular Hemoglobin 30.1 PG (26-34); Mean Corpuscular Volume 90.3 fL (80-100); Monocytes Absolute Auto 1400 /uL (0-900); Monocytes Percent Auto 8.7 % (3-14); Neutrophils Absolute Auto 12700 /uL (1500-7000); Neutrophils Percent Auto 80.5 % (50-75); Platelet Count 229 X10^3/uL (150-400); Red Cell Distribution Width 14.6 % (11.6-14.8); White Blood Cell Count 15.7 X10^3/uL (4.5-11.0)
[2024-12-07 17:39] LABS: Alanine Aminotransferase 29 IU/L (<50); Albumin 5.1 g/dL (3.5-5.0); Albumin Globulin Ratio 1.2 (1.0-2.8); Alkaline Phosphatase 70 U/L (38-126); Aspartate Aminotransferase 46 IU/L (17-59); BUN Creatinine Ratio 12.4 (6-22); Bilirubin Total 2.1 mg/dL (0.2-1.3); Blood Urea Nitrogen 17 mg/dL (9-20); Calcium 9.9 mg/dL (8.4-10.2); Carbon Dioxide 24 mmol/L (22-32); Chloride 95 mmol/L (98-107); Estimated Glomerular Filt Rate 50 mL/min (>60); Globulin 4.4 g/dL (1.7-4.1); Glucose 111 mg/dL (80-110); HEMOLYSIS 16 (0-50); Potassium 4.8 mmol/L (3.4-5.1); Sodium 132 mmol/L (137-145); Total Protein 9.5 g/dL (6.3-8.2)
--- NOTE | 2024-12-07 17:53 | PC.NURSE ---
Patient spouse states Hes been up and down all night and day and barely peeing anything. Provider informed new orders to place [facility] after 599 on bladder scan.
[2024-12-07 18:08] LABS: Ammonia (NH3) < 9 umol/L (9-30)
[2024-12-07] MEDS: LIDOCAINE 2% (GLYDO) 6 ML GEL TOP (18:31)
[2024-12-07 18:35] LABS: Ur Creatinine Normal (Normal); Ur Specific Gravity Normal (Normal); Urine Tetrahydrocannabinol Negative (Negative); Urine pH Normal (Normal)
[2024-12-07 18:36] LABS: Appearance Urine UA CLEAR; Bilirubin Urine UA NEGATIVE (NEGATIVE); Color Urine UA YELLOW; Glucose Urine UA NEGATIVE (Negative); Ketones Urine UA NEGATIVE (NEGATIVE); Leukocyte Esterase Urine UA NEGATIVE (NEGATIVE); Nitrite Urine UA NEGATIVE (Negative); Occult Blood Urine UA NEGATIVE (Negative); Protein Urine UA NEGATIVE (Negative); Specific Gravity Urine UA 1.015 (1.000-1.035); UR Morphine/Opiate cutoff 300 Negative (Negative); Urine Amphetamines Negative (Negative); Urine Barbiturates Negative (Negative); Urine Benzodiazepines Negative (Negative); Urine Cocaine Negative (Negative); Urine MDMA Negative (Negative); Urine Methadone Negative (Negative); Urine Methamphetamines Negative (Negative); Urine Oxycodone Negative (Negative); Urine Phencyclidine Negative (Negative); Urine Tricyclic Antidepressant Negative (Negative); Urobilinogen Urine UA 0.2 E.U./dL (0.2); pH Urine UA 6.5 (4.5-8.0)
[2024-12-07 18:42] LABS: Bacteria Urine None Seen; Culture Indicated Urine Cult Not Indicated; RBC Urine None Seen (0-5/HPF); Squamous Epithelial Cell Urine 0-1 /HPF (0-5/HPF); Urine Volume 10mL (spun); WBC Urine 0-1/HPF (0-5/HPF)
--- NOTE | 2024-12-07 19:05 | ED_ITS ---
HPI - Altered Mental Status General Chief Complaint: Altered Mental Status Stated Complaint: General Weakness Time Seen by Provider: 12/07/24 18:58 Source: EMS Mode of arrival: EMS History of Present Illness HPI narrative: Patient is a 84-year-old male history of dementia atrial fibrillation on Eliquis presents today with altered mental status. and son at bedside report recent change in medication. Was previously on Seroquel and change to risperidone last 2 days. He has not really slept in 2 days. noticed increased visits to the restroom for urination last night. This morning he was able to get up and walk as normal however this afternoon needing significant help and increasing weakness in his lower extremities. No significant fall. Patient was found to have urinary retention and Everett catheter was placed. He has not had any sort of fever. He was seen evaluated here 11/28/2024 where he had an unresponsive episode, had ct head and work up in ED thought at that time to be secondary to medication change. Related Data Home Medications Medication Instructions Recorded Confirmed levothyroxine 75 mcg tablet 75 mcg PO DAILY 04/08/18 12/07/24 (Synthroid) metoprolol succinate 25 mg 25 mg PO DAILY 04/08/18 12/07/24 tablet,extended release 24 hr Vitamin D (with calcium) 1 tab PO DAILY 12/07/24 12/07/24 apixaban 5 mg tablet (Eliquis) 5 mg PO BID 12/07/24 12/07/24 atorvastatin 10 mg tablet 10 mg DAILY 12/07/24 12/07/24 carboxymethylcellulose sodium 1 % 1 drp ophthalmic (eye) DAILY PRN 12/07/24 12/07/24 eye liquid gel drops Dry Eye(S) memantine 5 mg tablet 5 mg PO BID 12/07/24 12/07/24 quetiapine 25 mg tablet 50 mg PO ONCE PM 12/07/24 12/07/24 Allergies Allergy/AdvReac Type Severity Reaction Status Date / Time venom-honey bee Allergy Severe SOB Verified 01/13/24 10:31 [bee venom (honey bee)] amoxicillin Allergy Mild AGITATION,SKIN Verified 01/13/24 10:31 CRAWL ciprofloxacin Allergy Mild JOINT Verified 01/13/24 10:31 SWELLING, WHITE BM, RED RASH Penicillins Allergy Mild RASH Verified 01/13/24 10:31 sulfamethoxazole Allergy Unknown AGITATION,SKIN Verified 01/13/24 10:31 [From ] CRAWL trimethoprim [From ] Allergy Unknown AGITATION,SKIN Verified 01/13/24 10:31 CRAWL Patient History Social History household members: spouse Smoking Status: Never smoker alcohol intake: current Smoking Status: Never smoker alcohol intake frequency: a few times a week Exam Initial Vital Signs Initial Vital Signs: Vital Signs Temperature 97.2 F L 12/07/24 17:22 Pulse Rate 75 12/07/24 17:22 Respiratory Rate 21 12/07/24 17:22 Blood Pressure 146/85 H 12/07/24 17:22 Pulse Oximetry 99 12/07/24 17:22 Oxygen Delivery Method Room Air 12/07/24 17:22 GENERAL: Alert pleasantly confused 84-year-old male HEENT: Head atraumatic,EOMI, pupils reactive, face symmetric, moist mucous membranes CARDIOVASCULAR: Irregularly irregular RESPIRATORY: Breath sounds equal bilaterally, no wheezes rales or rhonchi. ABDOMEN: Soft, nontender. Normoactive bowel sounds all 4 quadrants. No guarding or rebound. : Everett catheter now in place clear urine EXTREMITIES: Normal range of motion, no clubbing or edema. 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 Course Orders Ordered: ED Orders 12/07/24 20:17 CT abdomen pelvis w con Stat CT head/brain wo con Stat 12/07/24 21:06 Lactate (Lactic Acid) Stat 12/07/24 21:16 Blood Culture Stat Acetaminophen (Acetaminophen 325 Mg Tablet) 650 mg PO Q6H PRN PRN Reason: Fever/Mild Pain (1-3) Ceftriaxone Sodium 1,000 mg/ (Sodium Chloride) 100 mls @ 200 mls/hr IV Q24H ERIKA Sodium Chloride (Normal Saline 0.9%) 1,000 mls @ 75 mls/hr IV CONT ERIKA Last Admin: 12/07/24 23:33 Dose: 75 mls/hr Documented By: MM Metoprolol Succinate (Metoprolol Er 25 Mg Tablet) 25 mg PO DAILY ERIKA Discontinued Medications Ceftriaxone Sodium 1,000 mg/ (Sodium Chloride) 100 mls @ 200 mls/hr IV NOW ONE Stop: 12/07/24 21:25 Last Infusion: 12/07/24 22:19 Dose: Infused Documented By: Admin: 12/07/24 21:43 Dose: 200 mls/hr Documented By: STEVEN Lidocaine HCl (Lidocaine 2% (Glydo) 6 Ml Gel) 6 ml TOP NOW ONE Stop: 12/07/24 17:53 Last Admin: 12/07/24 18:31 Dose: 6 ml Documented By: GEMINI Mineral Oil (Mineral Oil 1 Each Enema) 1 each FL NOW ONE Stop: 12/07/24 21:25 Last Admin: 12/07/24 21:45 Dose: 1 each Documented By: STEVEN Vital Signs Vital signs: Vital Signs - 8 hr 12/07/24 20:30 12/07/24 20:31 12/07/24 20:31 Pulse Rate 86 86 Respiratory Rate 27 H 24 Blood Pressure 193/130 H Pulse Oximetry 97 98 12/07/24 20:56 12/07/24 20:56 12/07/24 21:00 Pulse Rate 84 79 Respiratory Rate 20 18 Blood Pressure 175/96 H Pulse Oximetry 97 96 12/07/24 21:00 12/07/24 21:30 12/07/24 21:31 Pulse Rate 90 94 H Respiratory Rate 23 Blood Pressure 169/91 H Pulse Oximetry 97 96 12/07/24 21:31 Pulse Rate Respiratory Rate Blood Pressure 159/65 H Pulse Oximetry MDM - Altered Mental Status Lab Data 12/07/24 17:20 12/07/24 17:20 Labs: Lab Results 12/07/24 12/07/24 12/07/24 Range/Units 17:20 17:43 18:10 WBC 15.7 H (4.5-11.0) X10^3/uL RBC 6.10 H (4.5-5.9) X10^6/uL Hgb 18.4 H (13.5-17.5) g/dL Hct 55.0 H (41-53) % MCV 90.3 (80-100) fL MCH 30.1 (26-34) PG MCHC 33.4 (30-36) % RDW 14.6 (11.6-14.8) % Plt Count 229 (150-400) X10^3/uL Neut % (Auto) 80.5 H (50-75) % Lymph % (Auto) 9.7 L (25-40) % [place] % (Auto) 8.7 (3-14) % Eos % (Auto) 0.5 L (2-4) % Baso % (Auto) 0.6 (0-2) % Neut # (Auto) 83301 H (4386-7924) /uL Lymph # (Auto) 1500 (6988-7257) /uL [place]ink[place] # (Auto) 1400 H (0-900) /uL Eos # (Auto) 100 (0-450) /uL Baso # (Auto) 100 (0-100) /uL PT 14.9 H (9.4-12.5) SECONDS INR 1.3 (0.9-1.3) Sodium 132 L (137-145) mmol/L Potassium 4.8 (3.4-5.1) mmol/L Chloride 95 L (98-107) mmol/L Carbon Dioxide 24 (22-32) mmol/L BUN 17 (9-20) mg/dL Creatinine 1.37 H (0.66-1.25) mg/dL Estimated GFR 50 L (>60) mL/min BUN/Creatinine Ratio 12.4 (6-22) Glucose 111 H (80-110) mg/dL Lactate (0.7-2.1) mmol/L Calcium 9.9 (8.4-10.2) mg/dL Total Bilirubin 2.1 H (0.2-1.3) mg/dL AST 46 (17-59) IU/L ALT 29 (<50) IU/L Alkaline Phosphatase 70 (38-126) U/L Ammonia < 9 L (9-30) umol/L Total Protein 9.5 H (6.3-8.2) g/dL Albumin 5.1 H (3.5-5.0) g/dL Globulin 4.4 H (1.7-4.1) g/dL Albumin/Globulin Ratio 1.2 (1.0-2.8) Urine Color Yellow Urine Appearance Clear Urine pH 6.5 (4.5-8.0) Ur Specific [place] 1.015 (1.000-1.035) Urine Protein Negative (Negative) Urine Glucose (UA) Negative (Negative) g/dL Urine Ketones Negative (NEGATIVE) Urine Occult Blood Negative (Negative) Urine Nitrate Negative (Negative) Urine Bilirubin Negative (NEGATIVE) Urine Urobilinogen 0.2 (0.2) E.U./dL Ur Leukocyte Esterase Negative (NEGATIVE) Urine RBC None seen (0-5/HPF) Urine WBC 0-1/hpf (0-5/HPF) Ur Squamous Epith Cells 0-1 /hpf (0-5/HPF) Urine Bacteria None seen (None) Ur Culture Indicated? Cult not indicated Vol Urine Centrifuged 10ml (spun) U Opiates 300ng/mL cut Negative (Negative) Ur Oxycodone Screen Negative (Negative) Urine Methadone Screen Negative (Negative) Ur Barbiturates Screen Negative (Negative) U Tricyclic Antidepress Negative (Negative) Ur Phencyclidine Scrn Negative (Negative) Ur Amphetamines Screen Negative (Negative) U Methamphetamines Scrn Negative (Negative) Ur MDMA Scrn (Ecstasy) Negative (Negative) U Benzodiazepines Scrn Negative (Negative) Urine Cocaine Screen Negative (Negative) U Marijuana (THC) Screen Negative (Negative) Urine Specific [place] (Normal) Ur Creatinine (Normal) 12/07/24 12/07/24 Range/Units 18:10 21:06 WBC (4.5-11.0) X10^3/uL RBC (4.5-5.9) X10^6/uL Hgb (13.5-17.5) g/dL Hct (41-53) % MCV (80-100) fL MCH (26-34) PG MCHC (30-36) % RDW (11.6-14.8) % Plt Count (150-400) X10^3/uL Neut % (Auto) (50-75) % Lymph % (Auto) (25-40) % [place] % (Auto) (3-14) % Eos % (Auto) (2-4) % Baso % (Auto) (0-2) % Neut # (Auto) (7580-3978) /uL Lymph # (Auto) (6704-1346) /uL [place]ink[place] # (Auto) (0-900) /uL Eos # (Auto) (0-450) /uL Baso # (Auto) (0-100) /uL PT (9.4-12.5) SECONDS INR (0.9-1.3) Sodium (137-145) mmol/L Potassium (3.4-5.1) mmol/L Chloride (98-107) mmol/L Carbon Dioxide (22-32) mmol/L BUN (9-20) mg/dL Creatinine (0.66-1.25) mg/dL Estimated GFR (>60) mL/min BUN/Creatinine Ratio (6-22) Glucose (80-110) mg/dL Lactate 1.3 (0.7-2.1) mmol/L Calcium (8.4-10.2) mg/dL Total Bilirubin (0.2-1.3) mg/dL AST (17-59) IU/L ALT (<50) IU/L Alkaline Phosphatase (38-126) U/L Ammonia (9-30) umol/L Total Protein (6.3-8.2) g/dL Albumin (3.5-5.0) g/dL Globulin (1.7-4.1) g/dL Albumin/Globulin Ratio (1.0-2.8) Urine Color Urine Appearance Urine pH Normal (4.5-8.0) Ur Specific [place] (1.000-1.035) Urine Protein (Negative) Urine Glucose (UA) (Negative) g/dL Urine Ketones (NEGATIVE) Urine Occult Blood (Negative) Urine Nitrate (Negative) Urine Bilirubin (NEGATIVE) Urine Urobilinogen (0.2) E.U./dL Ur Leukocyte Esterase (NEGATIVE) Urine RBC (0-5/HPF) Urine WBC (0-5/HPF) Ur Squamous Epith Cells (0-5/HPF) Urine Bacteria (None) Ur Culture Indicated? Vol Urine Centrifuged U Opiates 300ng/mL cut (Negative) Ur Oxycodone Screen (Negative) Urine Methadone Screen (Negative) Ur Barbiturates Screen (Negative) U Tricyclic Antidepress (Negative) Ur Phencyclidine Scrn (Negative) Ur Amphetamines Screen (Negative) U Methamphetamines Scrn (Negative) Ur MDMA Scrn (Ecstasy) (Negative) U Benzodiazepines Scrn (Negative) Urine Cocaine Screen (Negative) U Marijuana (THC) Screen (Negative) Urine Specific [place] Normal (Normal) Ur Creatinine Normal (Normal) Point of Care Testing Glucose POC 97 Imaging Data Chest x-ray: Radiologist's Impression: PROCEDURE: XR CHEST 1V INDICATIONS: altered mental status TECHNIQUE: One view of the chest was acquired. COMPARISON: [facility], CR, XR CHEST 1V, 11/28/2024, 13:33. [facility], CR, XR CHEST 1V, 09/14/2024, 14:45. FINDINGS: Surgical changes and devices: None. Lungs and pleura: Low lung volumes. Retrocardiac opacity previously noted is decreased. No pleural effusions. The far left costophrenic angle however was not seen. Mediastinum: Heart size is borderline enlarged, similar to prior. Bones and chest wall: Degenerative changes. IMPRESSION: Low lung volumes. No dense consolidation or drainable pleural effusion. Previous left retrocardiac opacity is decreased. The far left costophrenic angle was not seen on this study. Dictated by: Leonard Miramontes M.D. on 12/07/2024 at 17:49 Approved by: Leonard Miramontes M.D. on 12/07/2024 at 17:50 CT scan - abdomen/pelvis: Radiologist's Impression: PROCEDURE: CT ABDOMEN PELVIS W CON INDICATIONS: urinary retention and altered mental status TECHNIQUE: After the administration of intravenous contrast, axial sections acquired from the lung bases to the pubic symphysis. Coronal and sagittal reformats were performed. For radiation dose reduction, the following was used: automated exposure control, adjustment of mA and/or kV according to patient size. COMPARISON: None. FINDINGS: Image quality: Diagnostic. Lower Chest: Heart is enlarged. Coronary artery calcifications. Dependent atelectasis is seen in the lung bases. ABDOMEN: Liver: No solid mass. Gallbladder: Status post cholecystectomy. Biliary ducts: No biliary dilation. Pancreas: No ductal dilation. Spleen: Size is within normal limits. Adrenal Glands: No adrenal nodules. Kidneys and Ureters: No hydronephrosis. No solid mass. No complex renal cystic lesion which requires follow up. Stomach and Bowel: Large stool seen in the rectum measuring approximately the 7.3 x 6.7 cm in diameter. Mild perirectal fat stranding. Moderate to large volume of stool in the remainder of the colon. Multiple diverticular present without signs of acute diverticulitis. Normal appendix. No signs of small bowel obstruction. Peritoneum: No abnormal intraperitoneal fluid. No free air. Ventral Wall: No significant ventral hernia. Abdominal Nodes: No retroperitoneal or mesenteric adenopathy by size criteria. Vessels: Aorta and inferior vena cava are normal in size. PELVIS: Pelvic Organs: Unremarkable. Bladder: Bladder is decompressed by Everett catheter and contains air. Mild circumferential bladder wall thickening and pericystic stranding. Pelvic Nodes: No enlarged lymph nodes. Miscellaneous: Small bilateral fat containing inguinal hernias. Bones: No aggressive osseous abnormality. Multilevel degenerative changes in the included spine. IMPRESSION: 1. Bladder is decompressed by Everett catheter. Circumferential bladder wall thickening and mild pericystic fat stranding could indicate superimposed cystitis. 2. Large possibly impacted stool ball in the rectum with mild perirectal fat stranding, suspicious for stercoral colitis. Moderate to large volume of colonic stool. Colonic diverticulosis without acute diverticulitis. Approved by: Shamir Bhatti M.D. on 12/07/2024 at 21:06 CT scan - head: Radiologist's Impression: PROCEDURE: CT HEAD/BRAIN WO CON INDICATIONS: AMS leg weakness on eliquis TECHNIQUE: Noncontrast 4.5 mm thick angled axial sections acquired from the foramen magnum to the vertex, with coronal and sagittal reformats. For radiation dose reduction, the following was used: automated exposure control, adjustment of mA and/or kV according to patient size. COMPARISON: [facility], CT, CT HEAD/BRAIN WO CON, 11/28/2024, 13:39. [facility], CT, CT HEAD/BRAIN WO CON, 10/19/2024, 15:16. FINDINGS: Image quality: Diagnostic. CSF spaces: Basal cisterns are patent. No extra-axial fluid collections. The ventricles are symmetric in size and shape. Brain: No acute intracranial hemorrhage or mass effect. There is cerebral volume loss for age, with resultant ventricular and sulcal prominence. There are periventricular and deep white matter chronic small vessel ischemic changes. There is intracranial internal carotid artery atherosclerosis. Skull and face: Calvarium and visualized facial bones appear intact, without suspicious lesions. Sinuses: Visualized sinuses and mastoids are clear. IMPRESSION: No acute intracranial pathology. Approved by: Shamir Bhatti M.D. on 12/07/2024 at 20:57 ECG Data Attestation: I personally reviewed and interpreted this ECG as follows: Prior ECG tracings: available for review Interpretation: Atrial fibrillation rate 83 right bundle-branch block noted no ischemic changes similar to previous EKGs MDM Narrative Medical decision making narrative: MDM CC: Increased confusion Complicating co-morbidities: Dementia atrial fibrillation on Eliquis Data collected from: and son Medical records reviewed: Previous ED visit on 11/28/2024 Differential considered: Sepsis infection intracranial hemorrhage worsening dementia Exam documented above, pertinent findings include: Awake alert mildly confused appears in no acute distress or pain Lab Test results independently reviewed as above. Pertinent findings: WBC 15.7, previously 10.6, hemoglobin 18.4 hematocrit 55.0 previously 16.9/50.5 CMP 132, potassium 4.8 chloride 95 creatinine 1.37 Ammonia undetectable Drug screen negative Urinalysis no evidence of UTI Blood cultures pending lactate 1.3 Independently reviewed EKG as above Atrial fibrillation no ischemia Imaging studies independently reviewed: Chest x-ray no pneumonia Consultations: Dr. Lindsay updated patient's symptoms test results accepts patient Treatments: Rocephin, enema was ordered but not given in the ED before he went upstairs Re-evaluations: Still requiring assistance with ambulation and getting up. Overall still not at baseline Discussion: Patient 84-year-old male presenting today for the 2nd time in 1 week with mental status changes. He has been having multiple medication adjustments, so initially thought to be secondary to medication. However today he was found to have urinary retention with leukocytosis. Initially concern for UTI however urinalysis was negative. He does not have an elevated lactic acid blood cultures are pending. Abdomen is soft but CT does show possible stercoral colitis with constipation. This maybe contributing to the urinary retention or vice versa. Patient was acutely weaker with mental status changes maybe related to infection as well. Patient admitted for further observation and monitoring. Discharge Plan Departure Patient Disposition: Admitted as Observation Clinical Impression: Encephalopathy, metabolic, Colitis, Acute urinary retention Admit Date/Time: 12/07/24 21:43 Admit Provider: Hari Lindsay
--- NOTE | 2024-12-07 20:17 | DI.CT.S_ITS ---
PROCEDURE: CT HEAD/BRAIN WO CON INDICATIONS: AMS leg weakness on eliquis TECHNIQUE: Noncontrast 4.5 mm thick angled axial sections acquired from the foramen magnum to the vertex, with coronal and sagittal reformats. For radiation dose reduction, the following was used: automated exposure control, adjustment of mA and/or kV according to patient size. COMPARISON: [facility], CT, CT HEAD/BRAIN WO CON, 11/28/2024, 13:39. [facility], CT, CT HEAD/BRAIN WO CON, 10/19/2024, 15:16. FINDINGS: Image quality: Diagnostic. CSF spaces: Basal cisterns are patent. No extra-axial fluid collections. The ventricles are symmetric in size and shape. Brain: No acute intracranial hemorrhage or mass effect. There is cerebral volume loss for age, with resultant ventricular and sulcal prominence. There are periventricular and deep white matter chronic small vessel ischemic changes. There is intracranial internal carotid artery atherosclerosis. Skull and face: Calvarium and visualized facial bones appear intact, without suspicious lesions. Sinuses: Visualized sinuses and mastoids are clear. IMPRESSION: No acute intracranial pathology. Approved by: Shamir Bhatti M.D. on 12/07/2024 at 20:57
--- NOTE | 2024-12-07 20:17 | DI.CT.S_ITS ---
PROCEDURE: CT ABDOMEN PELVIS W CON INDICATIONS: urinary retention and altered mental status TECHNIQUE: After the administration of intravenous contrast, axial sections acquired from the lung bases to the pubic symphysis. Coronal and sagittal reformats were performed. For radiation dose reduction, the following was used: automated exposure control, adjustment of mA and/or kV according to patient size. COMPARISON: None. FINDINGS: Image quality: Diagnostic. Lower Chest: Heart is enlarged. Coronary artery calcifications. Dependent atelectasis is seen in the lung bases. ABDOMEN: Liver: No solid mass. Gallbladder: Status post cholecystectomy. Biliary ducts: No biliary dilation. Pancreas: No ductal dilation. Spleen: Size is within normal limits. Adrenal Glands: No adrenal nodules. Kidneys and Ureters: No hydronephrosis. No solid mass. No complex renal cystic lesion which requires follow up. Stomach and Bowel: Large stool seen in the rectum measuring approximately the 7.3 x 6.7 cm in diameter. Mild perirectal fat stranding. Moderate to large volume of stool in the remainder of the colon. Multiple diverticular present without signs of acute diverticulitis. Normal appendix. No signs of small bowel obstruction. Peritoneum: No abnormal intraperitoneal fluid. No free air. Ventral Wall: No significant ventral hernia. Abdominal Nodes: No retroperitoneal or mesenteric adenopathy by size criteria. Vessels: Aorta and inferior vena cava are normal in size. PELVIS: Pelvic Organs: Unremarkable. Bladder: Bladder is decompressed by Everett catheter and contains air. Mild circumferential bladder wall thickening and pericystic stranding. Pelvic Nodes: No enlarged lymph nodes. Miscellaneous: Small bilateral fat containing inguinal hernias. Bones: No aggressive osseous abnormality. Multilevel degenerative changes in the included spine. IMPRESSION: 1. Bladder is decompressed by Everett catheter. Circumferential bladder wall thickening and mild pericystic fat stranding could indicate superimposed cystitis. 2. Large possibly impacted stool ball in the rectum with mild perirectal fat stranding, suspicious for stercoral colitis. Moderate to large volume of colonic stool. Colonic diverticulosis without acute diverticulitis. Approved by: Shamir Bhatti M.D. on 12/07/2024 at 21:06
[2024-12-07 20:33] LABS: INR 1.3 (0.9-1.3); Prothrombin Time 14.9 SECONDS (9.4-12.5)
[2024-12-07 21:27] LABS: Lactate (Lactic Acid) 1.3 mmol/L (0.7-2.1)
[2024-12-07] MEDS: cefTRIAXone 1,000 MG in SODIUM CHLORIDE 0.9% 100 ML 200 MG IV (21:43)
[2024-12-07] MEDS: MINERAL OIL 1 EACH ENEMA PR (21:45)
[2024-12-07] MEDS: SODIUM CHLORIDE 0.9% 1,000 ML 75 ML IV (23:33)
[2024-12-08] VITALS (7 sets, daily range): BP systolic 109–151; BP diastolic 65–101; PULSE 81–92; RESP 12–19; TEMP 36.6–36.9; O2SAT 96–97
--- NOTE | 2024-12-08 04:06 | PC.NURSE ---
NOC: Pt pulled out LAC PIV; second IV site (RFA) still intact; switched IVF to RFA PIV, reinforced with coban to prevent pulling out. Pt confused, saying he needed to get up and had work to do, trying to remove gown and get out of bed. Pt redirected several times. Pt currently resting comfortably, call light within reach, plan of care continues.
[2024-12-08 04:24] LABS: Add Manual Diff / Slide Review NO; Basophils Absolute Auto 100 /uL (0-100); Basophils Percent Auto 0.9 % (0-2); Eosinophils Absolute Auto 100 /uL (0-450); Eosinophils Percent Auto 0.4 % (2-4); Hematocrit 51.8 % (41-53); Hemoglobin 17.5 g/dL (13.5-17.5); Lymphocytes Absolute Auto 1700 /uL (1100-4500); Lymphocytes Percent Auto 10.9 % (25-40); Mean Corpuscular HGB Conc 33.7 % (30-36); Mean Corpuscular Hemoglobin 30.1 PG (26-34); Mean Corpuscular Volume 89.4 fL (80-100); Monocytes Absolute Auto 1600 /uL (0-900); Monocytes Percent Auto 10.2 % (3-14); Neutrophils Absolute Auto 12200 /uL (1500-7000); Neutrophils Percent Auto 77.6 % (50-75); Platelet Count 222 X10^3/uL (150-400); Red Blood Cell Count 5.79 X10^6/uL (4.5-5.9); Red Cell Distribution Width 14.6 % (11.6-14.8); White Blood Cell Count 15.8 X10^3/uL (4.5-11.0)
[2024-12-08 04:33] LABS: Alanine Aminotransferase 25 IU/L (<50); Albumin 4.3 g/dL (3.5-5.0); Albumin Globulin Ratio 1.2 (1.0-2.8); Alkaline Phosphatase 70 U/L (38-126); Aspartate Aminotransferase 39 IU/L (17-59); BUN Creatinine Ratio 13.4 (6-22); Bilirubin Total 2.2 mg/dL (0.2-1.3); Blood Urea Nitrogen 15 mg/dL (9-20); Carbon Dioxide 23 mmol/L (22-32); Chloride 99 mmol/L (98-107); Estimated Glomerular Filt Rate > 60 mL/min (>60); Globulin 3.5 g/dL (1.7-4.1); Glucose 106 mg/dL (80-110); HEMOLYSIS < 15 (0-50); Potassium 4.4 mmol/L (3.4-5.1); Sodium 131 mmol/L (137-145); Total Protein 7.8 g/dL (6.3-8.2)
[2024-12-08] MEDS: ONDANSETRON 4 MG/2 ML INJ IV (09:45)
[2024-12-08] MEDS: APIXABAN 5 MG TABLET PO ×2 (09:45→20:38)
[2024-12-08] MEDS: MAGNESIUM HYDROXIDE 30 ML UDC PO (09:45)
--- NOTE | 2024-12-08 09:45 | PT.IIE ---
Physical Therapy Inpatient Evaluation/Re-Eval M1 PT/OT-IP Prior Functional Status Start: 12/08/24 11:15 Freq: NEEDED Status: Active Protocol: Document 12/08/24 09:45 AB (Rec: 12/08/24 11:30 AB [id number]) Medical Review Prior Functional Status Medical History Reviewed Yes Communication able to make needs known Mobility and Gait pt stated that he was modified independent with all mobilities and ambulation using a FWW; pt with dx dementia and unable to provide accurate info Activities of Daily Living and IADL's pt stated that spouse assists him with shower needs Social History Household Members spouse,family Living Arrangements House Number of Floors (Floors) Two Floors Number of Stairs To Enter/Railing? 10 steps 1 rail (does not remember whichside) to enter the house 1 flight of steps wide bilateral rails to get to 2nd floor bedroom Home Environment Standard Height Toilet,Walk in Shower,Tub/Shower Home Equipment Front Wheel Walker,Hand Held Shower,Grab Bars Near Toilet, Grab Bars In Shower M2 PT-IP Current Condition Start: 12/08/24 11:15 Freq: NEEDED Status: Active Protocol: Document 12/08/24 09:45 AB (Rec: 12/08/24 11:30 AB [id number]) Physical Therapy Current Condition Current Condition Evaluation Date 12/08/24 Treatment Diagnosis encephalopathy; urinary retention; difficulty in walking Onset Date 12/07/24 M3 PT-IP Subjective Start: 12/08/24 11:15 Freq: NEEDED Status: Active Protocol: Document 12/08/24 09:45 AB (Rec: 12/08/24 11:30 AB [id number]) Subjective Physical Therapy Visit Type Type Initial Evaluation Visit Start Time 09:45 Visit Stop Time 10:30 Number of MUNITIONS HANDLER Visits 0 Physical Therapy Visit Comments Patient Comments agreeable to do PT M4 PT-IP Mobility and Gait Start: 12/08/24 11:15 Freq: NEEDED Status: Active Protocol: Document 12/08/24 09:45 AB (Rec: 12/08/24 11:30 AB [id number]) PT-Bed Mobility Assessment Supine to Sit Supine to Sit Maximum Assistance,1 Person Assistance,2 Person Assistance ,Head of Bed Elevated,Bedrails PT-Transfer Assessment Sit to and From Stand Sit to and from Stand Maximum Assistance,1 Person Assistance,2 Person Assistance ,Use of Upper Extremities Equipment Transfer Assistive Device Gait Belt,Front Wheeled Walker Orthotic/Prosthetic Devices or Brace: No Transfers Transfer Destination Chair Transfer Technique Stand Step Pivot Transfer Ability Level of Assist Maximum Assistance,1 Person Assistance,2 Person Assistance ,Use of Upper Extremities Comments Mobility Comments pt in bed and agreeable to do PT. obtained PLOF and home set up. pt wiht dx dementia and unable to provide accurate info. BP: 103/105 SD: 106. nurse aware and stated that she just gave pt his BP meds. pt completed supine to sit max A and max cues with HOB elevated. pt able to sit on EOB CGA. sit to stand max A x 1-2 and max cues. completed step transfer to chair using FWW max A x 1-2 and max cues. pt requires assist with weight shifting and cues to elevate LE up. pt rested on chair. sit to stand from chair max Ax 1-2 and max cues and ambulated ~ 6 ft using FWW max A x 1-2 and max cues and chair follow. positioned pt on the chair. call light and table placed within reach. informed NAC that pt needs a chair alarm. Gait Assessment Gait Gait Assistance Required: Maximum Assistance,1 Person Assist,2 Person Assist Distance (Feet) 6 Able to Maintain Weight Bearing Status Yes During Gait Assistive Devices Assistive Device Gait Belt,Front Wheeled Walker Orthotic/Prosthetic Devices or Brace: No Gait Deviations General Gait Pattern Decreased Stride Length, Decreased Feet Clearance,Step- to Gait Factors Limiting Gait Function Factors Limiting Gait Function Decreased Activity Tolerance, Decreased Strength,Difficulty Following Directions,Limited Range of Motion,Pain,Poor Balance,Poor Safety Awareness PT-Balance Assessment Sitting Balance and Reactions Static Sitting Balance Ability Good Dynamic Sitting Balance Ability Fair Standing Balance and Reactions Static Standing Balance Ability Poor Dynamic Standing Balance Ability Poor Device Used FWW M5 PT-IP Objective Assessments Start: 12/08/24 11:15 Freq: NEEDED Status: Active Protocol: Document 12/08/24 09:45 AB (Rec: 12/08/24 11:30 AB [id number]) Orientation Orientation/Cognition Level of Alertness Confusional State Orientation Name Safety Awareness Decreased Safety Awareness Memory Description Short Term Impaired,Process Worker Impaired Gross Range of Motion Lower Extremity ROM Assessment Within Functional Limits Strength Lower Extremity Strength Assessment Within Functional Limits Muscle Tone Muscle Tone WNL Yes M6 PT-IP Treatment Start: 12/08/24 11:15 Freq: NEEDED Status: Active Protocol: Document 12/08/24 09:45 AB (Rec: 12/08/24 11:30 AB [id number]) Physical Therapy Treatment Education Education Provided Safety M7 PT-IP Assessment and Plan Start: 12/08/24 11:15 Freq: NEEDED Status: Active Protocol: Document 12/08/24 09:45 AB (Rec: 12/08/24 11:30 AB [id number]) PT Summary Assessment and Plan Potential Rehabilitation Potential Fair Status of Condition at Evaluation Evolving Summary Impairments Pain,ROM,Strength,Balance, Coordination,Sensation,Tone, Cognition,Bed Mobility, Transfers,Gait,Activity Tolerance Assessment Summary pt is an 84 y/o M who is admitted for encephalopathy, colitis and acute urinary retention. pt requiring max A x 1-2 and max cues with all tasks using FWW. pt with dx dementia affecting current level of assistance. pt will benefit from SNF rehab to improve strength and mobility. Goals Bed Mobility Goal Minimal Assistance Transfer Goal Minimal Assistance,Front Wheeled Walker Gait Goal Minimal Assistance,Front Wheel Walker Gait Distance 50 Other Goals improve bed mobility, transfers, ambulation using FWW ~ 150 ft SBA up/down 12 steps 1 rail SBA Days to Meet Goals 10 Frequency of Treatment Frequency Of Treatment Once a Day Treatment Plan Physical Therapy Treatment Plan Bed Mobility Training,Transfer Training,Gait Training, Therapeutic Exercise,Balance Retraining,Discharge Planning, Hot or Cold Pack,Neuromuscular Re-ed,Coordination Retraining ,Manual Therapy Precautions Other Precautions falls Recommendations To Nursing Amount of Assist Needed 2 Person Assist Discharge Recommendations PT Discharge Recommendations SNF Rehab Transportation Needs at Discharge Wheelchair/Cabulance
[2024-12-08] MEDS: METOPROLOL ER 25 MG TABLET PO (09:46)
[2024-12-08] MEDS: CALCIUM CARBONATE 500 MG TAB PO (09:46)
[2024-12-08] MEDS: DOCUSATE 100 MG CAPSULE PO ×2 (09:49→20:38)
[2024-12-08] MEDS: CHOLECALCIFEROL (VITAMIN D3) 1,000 UNIT TABLET 1000 UNIT PO (09:50)
[2024-12-08] MEDS: LEVOTHYROXINE 75 MCG TABLET PO (09:50)
[2024-12-08] MEDS: MEMANTINE HCL 5 MG TABLET PO ×2 (09:54→20:38)
--- NOTE | 2024-12-08 10:29 | PC.NURSE ---
Bp increased when pt was up walking with OT, RN rechecked after pt was sitting and is slowly coming back down.
[2024-12-08] MEDS: SODIUM CHLORIDE 0.9% 1,000 ML 75 ML IV (12:27)
--- NOTE | 2024-12-08 12:50 | CM.DANOTE ---
Initial DCP Assessment Visit Note Reviewed EMR and team rounds for patient's medical status and updates. Met with patient at bedside to introduce self and role. Patient was found to be tired, somewhat confused, but able to explain his thoughts slowly. Patient was calm and cooperative during our conversation. I called patient's spouse Brittany Irwin to get most of the information in this note and on my assessment. Patient lives in his own home with his spouse. Patient relies on his spouse to help with dressing, toileting, and ambulating. He is able to shower independently and eat independently however he requires ongoing reminders to accomplish these things. He does use a front wheeled walker. His spouse typically transports him by private vehicle. Patient's spouse reported that she has arranged for the patient to begin care at [facility] on 12/10/24. She said she is signing final forms today to make this available. Payor: [facility] PCP: Dr Sutherland Patient is a 84 yo male who presented to the ER on 12/07/24 with altered mental status and weak lower extremities/ new worsened difficulty with walking. He had recently changed from seroquel to risperidone. He had not slept in two days. At the ER patient was also found to have urine retention, campbell placed. CT on 12/07/24 showed bowel impaction with possible colitis and diverticulosis, mineral oil enema was given 12/07/24. Labs show WBCs at 15.8, Ceftriazone is being administered by IV. Patient's spouse said she has already arranged placement at [facility]. She said patient will be able to reside there starting 12/10/24. She said if patient needs to discharge before that day he can come back to their home and she will transport him to [facility] on 12/10/24. We will call [facility] tomorrow to confirm if anything is needed and what transportation arrangement can be made for getting patient to them at discharge. [facility] will continue to monitor for for any evolving needs in relation to discharging to [facility]. Discharge Planning/Care Management CM Discharge Assessment Start: 12/08/24 12:31 Freq: Status: Active Protocol: Document 12/08/24 12:32 FANNIE (Rec: 12/08/24 12:48 FANNIE [id number]) Discharge Planning Assessment Assigned Circulating Process Inspector Pipe Ibrahim RN DPOA/Assigned Designee Name Brittany Irwin: spouse Contact Information [phone] Advance Directives? Yes Advance Directives on File Yes History Provided By Patient,Significant Other, Medical Record Expected Length of Stay 2 Has Patient been admitted in last 30 No days? Comment Patient has had multiple recent ER visits for other concerns including unresponsiveness and fall injury. Prior Living Arrangements House Household Members spouse Comment Patient's spouse has helping with all patient care up until this hospitalization. Including ADLs and transportation. Type of transporation used prior to Relies on Others admit Comment Patient's spouse transports him. Independent with ADL's No Is patient alert and oriented? No Needs Assistance With Grooming,Meal Prep,Toileting, Managing Medications,Home Chores / Shopping Comment Patient spouse said she helps the patient get dressed, use the bathroom, and ambulation. she said he requires lots of reminders with all ADLs. She said he is able to eat independently and he was also showering independently prior to hospitalization. Caregiver for Another No Comment None. Patient/Family [facility] Comment Patient's spouse has already begun arranging for patient to live at [facility]. She said that she is signing the final paperwork to arrange that this afternoon at 2:00 PM. Barriers to Discharge No Discharge Plan Assisted Living Facility Community Services Physical Therapy,Occupational Therapy,Transportation Transportation Arrangement Patient's spouse is able to transport patient if needed. Referrals Initiated None needed Additional Comment Patient's spouse is already arranging care with [facility]. We will call them tomorrow to confirm if anything is needed and to discuss transportation plan for patient getting to them at discharge. If patient plan is SNF: Has PASSR been No completed? Comment Patient is in OBS status as of 12/08/24 11:47 Medicare Choice List Provided No SNF/HH Preference [facility] was already picked by patient's spouse. She was not interested in discussing additional options today. Has Agency SNF been contacted No Comment Not contacted by us yet, however patient's spouse reported that she has arranged everything for patient to begin care with them on . We will confirm. Whiteboard Updated in Patient Room with Yes name and ext. # of Circulating Process Inspector Review Status In Process
--- NOTE | 2024-12-08 18:28 | PM.HP.1 ---
History of Present Illness History of Present Illness Date Patient Seen: 12/08/24 Time Patient Seen: 13:00 Chief complaint: General Weakness Narrative: Patient is well known to me has a history of dementia presumably Alzheimer's type that has been progressively worsening and patient has been having sun downers and hallucinations at home. He was initially started on Seroquel 25 mg at bedtime and then this increased to 50 mg and it was thought that perhaps the hallucinations were worsened and then we attempted to switch to Risperdal but he really only had 1 dose and symptoms seemed to be progressively worsening he was straining to have bowel movements up 14 times a night and difficulty urinating. He was brought to the ER was evaluated was sent home came back to the ER had urinary retention with suspected constipation as well and was admitted to the hospital for metabolic encephalopathy with possible underlying UTI. Patient has had extensive workup recently had a EEG results we do not have. This was at the request of Dr. Flores. Patient has had MRIs most recently was October 23, 2024 and was not MRI MRA stroke protocol that did not show any significant abnormalities or evidence of blockages. Patient recently had markers for Alzheimer's that appear to be positive but has not had follow up with Neurology. He previously had been started on acetylcholine esterase inhibitors but had horrible diarrhea but he has been stable on memantine for over a year. Past medical history is remarkable for 1. Atrial fibrillation for which he is on chronic anticoagulation with Eliquis 2. BPH with urinary obstruction 3. Chronic constipation 4. GERD 5. Glaucoma 6. Chronic kidney disease stage 3 7. Mixed hyperlipidemia 8. Polycythemia 9. Peripheral neuropathy 10. Hypothyroidism 11. Hypertension 12. Ischemic cardiomyopathy 13. Aortic stenosis 14. Peripheral vascular disease 15. Spinal stenosis of the lumbar region Allergies: Multiple bee venom, Cipro, sulfa, yellow jacket, donepezil, cephalexin, nitrofurantoin, penicillin Past surgical history Adenoidectomy as a child 1991 he had a cholecystectomy Health related behavior No excessive alcohol use. Never been a smoker. Was fairly active until recent health declined. Family history: No family history of dementia. Social history. Patient lives with his in an a [place] in their own home. Their son Vitor is here and helping 12 point review of systems: Denies fever, rash, unintentional weight gain or weight loss patient has had constipation. Patient has not had any dysuria. He has not had any cough or shortness of breath or chest pain or lower extremity edema. He has not had any recent gout attacks. Otherwise 12 point review of systems is negative other than HPI PFSH Social History household members: spouse Smoking Status: Never smoker alcohol intake: current Meds Home Medications and Allergies Home Medications Medication Instructions Recorded Confirmed Type levothyroxine 75 mcg tablet 75 mcg PO DAILY 04/08/18 12/07/24 History (Synthroid) metoprolol succinate 25 mg 25 mg PO DAILY 04/08/18 12/07/24 History tablet,extended release 24 hr Vitamin D (with calcium) 1 tab PO DAILY 12/07/24 12/07/24 History apixaban 5 mg tablet (Eliquis) 5 mg PO BID 12/07/24 12/07/24 History atorvastatin 10 mg tablet 10 mg DAILY 12/07/24 12/07/24 History carboxymethylcellulose sodium 1 % 1 drp ophthalmic (eye) DAILY PRN 12/07/24 12/07/24 History eye liquid gel drops Dry Eye(S) memantine 5 mg tablet 5 mg PO BID 12/07/24 12/07/24 History quetiapine 25 mg tablet 50 mg PO ONCE PM 12/07/24 12/07/24 History Allergies Allergy/AdvReac Type Severity Reaction Status Date / Time venom-honey bee Allergy Severe SOB Verified 01/13/24 10:31 [bee venom (honey bee)] amoxicillin Allergy Mild AGITATION,SKIN Verified 01/13/24 10:31 CRAWL ciprofloxacin Allergy Mild JOINT Verified 01/13/24 10:31 SWELLING, WHITE BM, RED RASH Penicillins Allergy Mild RASH Verified 01/13/24 10:31 sulfamethoxazole Allergy Unknown AGITATION,SKIN Verified 01/13/24 10:31 [From ] CRAWL trimethoprim [From ] Allergy Unknown AGITATION,SKIN Verified 01/13/24 10:31 CRAWL Exam Vital Signs (past 8 hours): - 12/08/24 10:29 12/08/24 14:40 Pulse Rate 92 H 88 Blood Pressure 141/101 H 109/65 Pulse Oximetry 97 Oxygen Delivery Method Room Air Oxygen Flow Rate 0 Narrative Exam Narrative: Patient is afebrile vital signs are stable except for blood pressure is slightly high on admit. Patient is alert but not oriented to person place or time. He does recognize me but is not able to say my name. HEENT is unremarkable mucous membranes moist and pink without any mucosal lesions Neck: Supple without adenopathy or thyromegaly Chest: Clear to auscultation with decreased breath sounds bibasilar but no wheezes rhonchi or crackles Cor: Irregularly irregular rhythm and a well-controlled rate with distant S1-S2 Abdomen: Positive bowel sounds, soft, nontender, nondistended Extremities no edema pulses intact Neurologic exam is nonfocal other than cognitive state anomia Objective Labs 12/08/24 03:50 12/08/24 03:50 Labs: Laboratory Results - last 24 hr 12/07/24 12/07/24 12/07/24 17:20 18:10 18:10 WBC RBC Hgb Hct MCV MCH MCHC RDW Plt Count Neut % (Auto) Lymph % (Auto) [place] % (Auto) Eos % (Auto) Baso % (Auto) Neut # (Auto) Lymph # (Auto) [place] # (Auto) Eos # (Auto) Baso # (Auto) PT 14.9 H INR 1.3 Sodium Potassium Chloride Carbon Dioxide BUN Creatinine Estimated GFR BUN/Creatinine Ratio Glucose Lactate Calcium Total Bilirubin AST ALT Alkaline Phosphatase Total Protein Albumin Globulin Albumin/Globulin Ratio Urine Color Yellow Urine Appearance Clear Urine pH 6.5 Normal Ur Specific [place] 1.015 Urine Protein Negative Urine Glucose (UA) Negative Urine Ketones Negative Urine Occult Blood Negative Urine Nitrate Negative Urine Bilirubin Negative Urine Urobilinogen 0.2 Ur Leukocyte Esterase Negative Urine RBC None seen Urine WBC 0-1/hpf Ur Squamous Epith Cells 0-1 /hpf Urine Bacteria None seen Ur Culture Indicated? Cult not indicated Vol Urine Centrifuged 10ml (spun) U Opiates 300ng/mL cut Negative Ur Oxycodone Screen Negative Urine Methadone Screen Negative Ur Barbiturates Screen Negative U Tricyclic Antidepress Negative Ur Phencyclidine Scrn Negative Ur Amphetamines Screen Negative U Methamphetamines Scrn Negative Ur MDMA Scrn (Ecstasy) Negative U Benzodiazepines Scrn Negative Urine Cocaine Screen Negative U Marijuana (THC) Screen Negative Urine Specific [place] Normal Ur Creatinine Normal 12/07/24 12/08/24 21:06 03:50 WBC 15.8 H RBC 5.79 Hgb 17.5 Hct 51.8 MCV 89.4 MCH 30.1 MCHC 33.7 RDW 14.6 Plt Count 222 Neut % (Auto) 77.6 H Lymph % (Auto) 10.9 L [place] % (Auto) 10.2 Eos % (Auto) 0.4 L Baso % (Auto) 0.9 Neut # (Auto) 00685 H Lymph # (Auto) 1700 [place] # (Auto) 1600 H Eos # (Auto) 100 Baso # (Auto) 100 PT INR Sodium 131 L Potassium 4.4 Chloride 99 Carbon Dioxide 23 BUN 15 Creatinine 1.12 Estimated GFR > 60 BUN/Creatinine Ratio 13.4 Glucose 106 Lactate 1.3 Calcium 9.0 Total Bilirubin 2.2 H AST 39 ALT 25 Alkaline Phosphatase 70 Total Protein 7.8 Albumin 4.3 Globulin 3.5 Albumin/Globulin Ratio 1.2 Urine Color Urine Appearance Urine pH Ur Specific [place] Urine Protein Urine Glucose (UA) Urine Ketones Urine Occult Blood Urine Nitrate Urine Bilirubin Urine Urobilinogen Ur Leukocyte Esterase Urine RBC Urine WBC Ur Squamous Epith Cells Urine Bacteria Ur Culture Indicated? Vol Urine Centrifuged U Opiates 300ng/mL cut Ur Oxycodone Screen Urine Methadone Screen Ur Barbiturates Screen U Tricyclic Antidepress Ur Phencyclidine Scrn Ur Amphetamines Screen U Methamphetamines Scrn Ur MDMA Scrn (Ecstasy) U Benzodiazepines Scrn Urine Cocaine Screen U Marijuana (THC) Screen Urine Specific [place] Ur Creatinine Assessment & Plan Assessment & Plan narrative: 84-year-old male admitted for metabolic encephalopathy with altered mental status Assessment 1. Severe dementia now with acute hallucinations and altered mental status. Unclear if this is natural progression but certainly suspect that dehydration, urinary retention, constipation and possible urinary tract infection or worsening of symptoms Plan: Patient will be admitted to the hospital for further treatment and monitoring. Will continue outpatient Namenda Will stop Risperdal or Seroquel and if patient does become agitated hallucinating will give Haldol Will treat UTI with ceftriaxone Will monitor labs. Will give IV fluids Will attempt to obtain records from Dr. Flores. Assessment 2. UTI Plan: Culture pending Will continue IV ceftriaxone Assessment 3. Chronic kidney disease with acute dehydration improved this morning with IV fluids Plan: Will encourage p.o. intake will reassess tomorrow Assessment 4. Severe deconditioning with high fall risk Plan: Will consult PT and OT Assessment 5. AFib with well-controlled rate Plan: Will continue on metoprolol 25 mg daily and Eliquis. Assessment 6. Hypothyroidism Plan: Continue outpatient thyroid medication 79 minutes spent with the patient meeting with him and his and his son and discussing with physician in reviewing workup in the ER formulating a plan and documentation Code status is DNR Will likely require placement. Anticipate 3 midnight for condition is stabilized Time-Based Coding :: [TOTAL MINUTES] spent with patient and on the chart (including review of chart, obtaining history, exam, reviewing outside data, placing orders, documenting exam and treatment plan, and counseling patient) on [DATE]. Quality VTE Deep Vein Thrombosis/Pulmonary Embolism Present on Admission: No
[2024-12-08] MEDS: SENNOSIDES 8.6 MG TABLET 17.2 MG PO (20:38)
[2024-12-08] MEDS: cefTRIAXone 1,000 MG in SODIUM CHLORIDE 0.9% 100 ML 200 MG IV (22:15)
[2024-12-09] MEDS: SODIUM CHLORIDE 0.9% 1,000 ML 75 ML IV (00:56)
[2024-12-09 04:18] LABS: Add Manual Diff / Slide Review NO; Basophils Absolute Auto 100 /uL (0-100); Basophils Percent Auto 0.5 % (0-2); Eosinophils Absolute Auto 100 /uL (0-450); Eosinophils Percent Auto 0.7 % (2-4); Hematocrit 49.5 % (41-53); Hemoglobin 16.6 g/dL (13.5-17.5); Lymphocytes Absolute Auto 1900 /uL (1100-4500); Lymphocytes Percent Auto 10.3 % (25-40); Mean Corpuscular HGB Conc 33.6 % (30-36); Mean Corpuscular Hemoglobin 30.1 PG (26-34); Mean Corpuscular Volume 89.5 fL (80-100); Monocytes Absolute Auto 2100 /uL (0-900); Monocytes Percent Auto 11.4 % (3-14); Neutrophils Absolute Auto 14000 /uL (1500-7000); Neutrophils Percent Auto 77.1 % (50-75); Platelet Count 201 X10^3/uL (150-400); Red Blood Cell Count 5.53 X10^6/uL (4.5-5.9); Red Cell Distribution Width 14.7 % (11.6-14.8); White Blood Cell Count 18.2 X10^3/uL (4.5-11.0)
[2024-12-09 04:35] LABS: Alanine Aminotransferase 29 IU/L (<50); Albumin 3.7 g/dL (3.5-5.0); Albumin Globulin Ratio 1.2 (1.0-2.8); Alkaline Phosphatase 54 U/L (38-126); Aspartate Aminotransferase 39 IU/L (17-59); BUN Creatinine Ratio 17.9 (6-22); Bilirubin Total 1.5 mg/dL (0.2-1.3); Blood Urea Nitrogen 20 mg/dL (9-20); Calcium 8.4 mg/dL (8.4-10.2); Carbon Dioxide 24 mmol/L (22-32); Chloride 99 mmol/L (98-107); Estimated Glomerular Filt Rate > 60 mL/min (>60); Globulin 3.1 g/dL (1.7-4.1); Glucose 86 mg/dL (80-110); HEMOLYSIS < 15 (0-50); Potassium 3.9 mmol/L (3.4-5.1); Sodium 131 mmol/L (137-145); Total Protein 6.8 g/dL (6.3-8.2)
[2024-12-09] MEDS: LEVOTHYROXINE 75 MCG TABLET PO (05:50)
--- NOTE | 2024-12-09 07:49 | DI.RAD.S_ITS ---
PROCEDURE: XR CHEST 1V INDICATIONS: cough TECHNIQUE: One view of the chest was acquired. COMPARISON: [facility], CR, XR CHEST 1V, 12/07/2024, 17:27. FINDINGS: Surgical changes and devices: None. Lungs and pleura: Lungs are clear. No pleural effusions or pneumothorax. Mediastinum: Mediastinal contours appear normal. Heart size is normal. Bones and chest wall: No suspicious bony lesions. Overlying soft tissues appear unremarkable. IMPRESSION: No acute cardiopulmonary abnormality is seen. Dictated by: Geovanni Morales M.D. on 12/09/2024 at 8:55 Approved by: Geovanni Morales M.D. on 12/09/2024 at 8:56
[2024-12-09 08:00] VITALS: BP 125/71; PULSE 69; RESP 18; TEMP 36.9; O2SAT 96
--- NOTE | 2024-12-09 08:59 | DIET.CONS ---
Dietary Consultation Note Admission Date: 12/07/2024 21:43 Assessment: 84 y M admitted for metabolic encephalopathy. Dietitian screened for low MNA. PMH of severe dementia and CKD. Pt with normal BMI for age and no weight loss per EMR. UBW 77-79 kg. Will continue to monitor PO intakes and meal composition. Ht: 182.88 cm Wt: 81.601 kg BMI: 24.4 UBW: 77.655 kg on 10/19/24, 79.379 kg on 11/28/24 Last BM: 12/08/24 (12/09/24 06:00) MNA: 8 Gokul Score: 17 Diet: 12/08/24 Breakfast General (Regular) Diet Diet Modifications: May Advance Diet as Tolerated: Yes Food Texture: Level 7 - Regular Liquid Consistency: Level 0 - Thin Heart Healthy Diet Diet Modifications: Nutrition Percent Meal Consumed 75% 12/08/24 13:12 Percent Meal Consumed refused meal 12/08/24 10:07 Labs: RBC 5.53 X10^6/uL (4.5-5.9) 12/09/24 03:54 Hgb 16.6 g/dL (13.5-17.5) 12/09/24 03:54 Hct 49.5 % (41-53) 12/09/24 03:54 Creatinine 1.12 mg/dL (0.66-1.25) 12/09/24 03:54 Lactate 1.3 mmol/L (0.7-2.1) 12/07/24 21:06 Electronically Signed by: Lauren Valverde 12/09/24 08:59 Clinical Diet[address] [address]
--- NOTE | 2024-12-09 09:05 | CM.DPC ---
Chart notes from Dr Sutherland from 12/08/24 indicate that patient needs a urine culture collected to determine if he has a UTI this appears to have not been collected yet. IV ceftriaxone was given yesterday for presumed UTI. Dr Sutherland stopped risperdal and seroquel to see if symptoms improve. If patient becomes agitated or hallucinates she has ordered PRN haldol. Dr Sutherland is also trying to get records from Dr Flores for guidance. Dr Sutherland indicated that she expects the patient to be hospitalized 3 midnights for stabilization. I called [facility] to confirm if patient's spouse set up living arrangements for the patient to reside with them. I spoke to Harrison, he said yes, the patient has a room ready to go at [facility]. the patient is able to move in as soon as tomorrow 12/10/24. Harrison asked that we send over standard discharge paperwork when it is time for the patient to discharge. Harrison said the patient's furniture is all set up already.
[2024-12-09 09:44] VITALS: BP 125/71; PULSE 69
[2024-12-09] MEDS: DOCUSATE 100 MG CAPSULE PO ×2 (09:44→21:19)
[2024-12-09] MEDS: CHOLECALCIFEROL (VITAMIN D3) 1,000 UNIT TABLET 1000 UNIT PO (09:44)
[2024-12-09] MEDS: METOPROLOL ER 25 MG TABLET PO (09:44)
[2024-12-09] MEDS: CALCIUM CARBONATE 500 MG TAB PO (09:44)
[2024-12-09] MEDS: APIXABAN 5 MG TABLET PO ×2 (09:44→21:19)
[2024-12-09] MEDS: MEMANTINE HCL 5 MG TABLET PO ×2 (09:45→21:19)
[2024-12-09 09:50] VITALS: O2SAT 96
--- NOTE | 2024-12-09 11:30 | PT.IPTN ---
Physical Therapy Treatment Note M2 PT-IP Current Condition Start: 12/08/24 11:15 Freq: NEEDED Status: Active Protocol: Document 12/08/24 09:45 AB (Rec: 12/08/24 11:30 AB [id number]) Physical Therapy Current Condition Current Condition Evaluation Date 12/08/24 Treatment Diagnosis encephalopathy; urinary retention; difficulty in walking Onset Date 12/07/24 M3 PT-IP Subjective Start: 12/08/24 11:15 Freq: NEEDED Status: Active Protocol: Document 12/09/24 11:30 AB (Rec: 12/09/24 12:57 AB [id number]) Subjective Physical Therapy Visit Type Type Treatment Note Visit Start Time 11:30 Visit Stop Time 11:50 Number of CUSTOMER SUCCESS REPRESENTATIVE Visits 0 Physical Therapy Visit Comments Patient Comments agreeable to do PT M4 PT-IP Mobility and Gait Start: 12/08/24 11:15 Freq: NEEDED Status: Active Protocol: Document 12/09/24 11:30 AB (Rec: 12/09/24 12:57 AB [id number]) PT-Bed Mobility Assessment Supine to Sit Supine to Sit Maximum Assistance,Head of Bed Elevated,Bedrails PT-Transfer Assessment Sit to and From Stand Sit to and from Stand Maximum Assistance,1 Person Assistance,Use of Upper Extremities Equipment Transfer Assistive Device Gait Belt,Front Wheeled Walker Orthotic/Prosthetic Devices or Brace: No Transfers Transfer Destination Bedside Commode Transfer Technique ambulated Transfer Ability Level of Assist Maximum Assistance,1 Person Assistance,Use of Upper Extremities Comments Mobility Comments pt in bed and agreed to get up . completed supine to sit max A and max cues. HOB elevated and pt used bed rail to assist . pt completed sit to stand max A and max cues and ambulated in room ~ 10 ft using FWW max A. presents with increase forward trunk posture and shuffling gait. pt found needing to be cleaned up and brief change. NAC in room and positioned bedside commode next to pt. pt sat on bed side commode. Left pt with NAC. Gait Assessment Gait Gait Assistance Required: Maximum Assistance Distance (Feet) 10 Able to Maintain Weight Bearing Status Yes During Gait Assistive Devices Assistive Device Gait Belt,Front Wheeled Walker Orthotic/Prosthetic Devices or Brace: No Gait Deviations General Gait Pattern Ataxic,Decreased Stride Length ,Decreased Feet Clearance, Flexed Trunk,Step-to Gait Factors Limiting Gait Function Factors Limiting Gait Function Decreased Activity Tolerance, Decreased Strength,Difficulty Following Directions,Limited Range of Motion,Poor Balance, Poor Safety Awareness M5 PT-IP Objective Assessments Start: 12/08/24 11:15 Freq: NEEDED Status: Active Protocol: Document 12/08/24 09:45 AB (Rec: 12/08/24 11:30 AB [id number]) Orientation Orientation/Cognition Level of Alertness Confusional State Orientation Name Safety Awareness Decreased Safety Awareness Memory Description Short Term Impaired,Jail Impaired Gross Range of Motion Lower Extremity ROM Assessment Within Functional Limits Strength Lower Extremity Strength Assessment Within Functional Limits Muscle Tone Muscle Tone WNL Yes M6 PT-IP Treatment Start: 12/08/24 11:15 Freq: NEEDED Status: Active Protocol: Document 12/09/24 11:30 AB (Rec: 12/09/24 12:57 AB [id number]) Physical Therapy Treatment Education Education Provided Safety M7 PT-IP Assessment and Plan Start: 12/08/24 11:15 Freq: NEEDED Status: Active Protocol: Document 12/09/24 11:30 AB (Rec: 12/09/24 12:57 AB [id number]) PT Summary Assessment and Plan Potential Rehabilitation Potential Fair Summary Impairments Pain,ROM,Strength,Balance, Coordination,Sensation,Tone, Cognition,Bed Mobility, Transfers,Gait,Activity Tolerance Progress Towards Goals Slow Progress due to Activity Tolerance,Slow Progress - Other Assessment Summary pt requiring max A with mobilities using FWW and will benefit from SNF rehab to improve overall strength and mobility. Goals Bed Mobility Goal Minimal Assistance Transfer Goal Minimal Assistance,Front Wheeled Walker Gait Goal Minimal Assistance,Front Wheel Walker Gait Distance 50 Other Goals improve bed mobility, transfers, ambulation using FWW ~ 150 ft SBA up/down 12 steps 1 rail SBA Days to Meet Goals 10 Frequency of Treatment Frequency Of Treatment Once a Day Treatment Plan Physical Therapy Treatment Plan Bed Mobility Training,Transfer Training,Gait Training, Therapeutic Exercise,Balance Retraining,Discharge Planning, Hot or Cold Pack,Neuromuscular Re-ed,Coordination Retraining ,Manual Therapy Precautions Other Precautions falls Recommendations To Nursing Amount of Assist Needed 2 Person Assist Discharge Recommendations PT Discharge Recommendations SNF Rehab Transportation Needs at Discharge Wheelchair/Cabulance
--- NOTE | 2024-12-09 13:29 | P.PN_ITS ---
Subjective Subjective Date Patient Seen: 12/09/24 Time Patient Seen: 13:29 Interval history: Patient had unremarkable night. He is passing significant amount of stool. He is more awake and alert and feels he is not back to baseline but progressing towards this. Still with significant anomia and word salad. Patient still with IV fluids and catheter in place. Patient is tolerating p.o. without difficulty. Patient denies abdominal pain Patient denies any shortness of breath or chest pain 12 point review of systems otherwise negative Exam Vital Signs (past 8 hours): - 12/09/24 08:00 12/09/24 09:44 12/09/24 09:50 Temperature 98.4 F Pulse Rate 69 69 Respiratory Rate 18 Blood Pressure 125/71 125/71 Pulse Oximetry 96 96 Oxygen Delivery Method Room Air Oxygen Flow Rate 0 0 Oxygen Delivery Method Room Air Oxygen Flow Rate 0 Narrative Exam Narrative: Afebrile vital signs are stable HEENT: Unremarkable Neck: Supple without adenopathy Chest: Clear to auscultation without wheezes rhonchi or crackles Cor: Irregularly irregular rhythm with a well-controlled rate . Distant S1-S2 Abdomen: Positive bowel sounds, soft, nontender, nondistended, no hepatosplenomegaly Extremities: No edema Objective Labs 12/09/24 03:54 12/09/24 03:54 Labs: Laboratory Results - last 24 hr 12/09/24 03:54 WBC 18.2 H RBC 5.53 Hgb 16.6 Hct 49.5 MCV 89.5 MCH 30.1 MCHC 33.6 RDW 14.7 Plt Count 201 Neut % (Auto) 77.1 H Lymph % (Auto) 10.3 L [place] % (Auto) 11.4 Eos % (Auto) 0.7 L Baso % (Auto) 0.5 Neut # (Auto) 71265 H Lymph # (Auto) 1900 [place] # (Auto) 2100 H Eos # (Auto) 100 Baso # (Auto) 100 Sodium 131 L Potassium 3.9 Chloride 99 Carbon Dioxide 24 BUN 20 Creatinine 1.12 Estimated GFR > 60 BUN/Creatinine Ratio 17.9 Glucose 86 Calcium 8.4 Total Bilirubin 1.5 H AST 39 ALT 29 Alkaline Phosphatase 54 Total Protein 6.8 Albumin 3.7 Globulin 3.1 Albumin/Globulin Ratio 1.2 PFSH Social History household members: spouse Smoking Status: Never smoker alcohol intake: current Assessment & Plan Assessment & Plan narrative: 84-year-old male admitted for metabolic encephalopathy with altered mental status Assessment 1. Severe dementia now with acute hallucinations and altered mental status. Unclear if this is natural progression but certainly suspect that dehydration, urinary retention, constipation and possible urinary tract infection or worsening of symptoms Plan: Patient will be admitted to the hospital for further treatment and monitoring. Patient is doing much better. Still not quite back to baseline. Will continue off any Seroquel or Risperdal and only use Haldol if needed for agitation. Suspect worsened mental status and hallucinations were multifactorial possible dehydration, obstipation, urinary tract infection. Blood cultures are negative but still pending. Urine cultures pending and chest x-ray normal Will continue with same Namenda Will stop IV fluids and remove Everett catheter Anticipate possible placement tomorrow [facility] Assessment 2. UTI Plan: Culture pending Will continue IV ceftriaxone. Patient is still with leukocytosis and higher now. We will remove the catheter and see how he does. Assessment 3. Chronic kidney disease with acute dehydration improved this morning with IV fluids Plan: Will encourage p.o. intake will reassess tomorrow. DC IV fluids and recheck tomorrow Assessment 4. Severe deconditioning with high fall risk Plan: Continue with PT OT Assessment 5. AFib with well-controlled rate Plan: Will continue on metoprolol 25 mg daily and Eliquis. Assessment 6. Hypothyroidism Plan: Continue outpatient thyroid medication Assessment 7. Constipation, chronic with stool ball on CT scan with possible stercoral colitis. He is now passing significant amount of stool and seems to be doing better. We will continue with current bowel regimen and monitoring 56 minutes spent with the patient meeting with him and his and his son-in-law and discussing with nursing and in reviewing workup in the ER formulating a plan and documentation Code status is DNR Will likely require placement. Time-Based Coding :: [TOTAL MINUTES] spent with patient and on the chart (including review of chart, obtaining history, exam, reviewing outside data, placing orders, documenting exam and treatment plan, and counseling patient) on [DATE]. Quality VTE Deep Vein Thrombosis/Pulmonary Embolism Present on Admission: No
[2024-12-09 19:00] VITALS: O2SAT 97
[2024-12-09] MEDS: SENNOSIDES 8.6 MG TABLET 17.2 MG PO (21:19)
[2024-12-09] MEDS: cefTRIAXone 1,000 MG in SODIUM CHLORIDE 0.9% 100 ML 200 MG IV (21:20)
[2024-12-09 22:00] VITALS: BP 155/111; PULSE 81; RESP 18; TEMP 36.6; O2SAT 97
[2024-12-10 01:00] VITALS: BP 148/81
[2024-12-10] MEDS: ACETAMINOPHEN 325 MG TABLET 650 MG PO (03:25)
[2024-12-10] MEDS: ONDANSETRON 4 MG/2 ML INJ IV (03:26)
[2024-12-10] MEDS: LEVOTHYROXINE 75 MCG TABLET PO (06:37)
[2024-12-10 06:55] LABS: Add Manual Diff / Slide Review NO; Basophils Absolute Auto 100 /uL (0-100); Basophils Percent Auto 0.6 % (0-2); Eosinophils Absolute Auto 200 /uL (0-450); Eosinophils Percent Auto 1.5 % (2-4); Hematocrit 47.4 % (41-53); Hemoglobin 15.9 g/dL (13.5-17.5); Lymphocytes Absolute Auto 1700 /uL (1100-4500); Lymphocytes Percent Auto 10.9 % (25-40); Mean Corpuscular HGB Conc 33.6 % (30-36); Mean Corpuscular Hemoglobin 30.2 PG (26-34); Mean Corpuscular Volume 89.9 fL (80-100); Monocytes Absolute Auto 1400 /uL (0-900); Monocytes Percent Auto 9.2 % (3-14); Neutrophils Absolute Auto 11800 /uL (1500-7000); Neutrophils Percent Auto 77.8 % (50-75); Platelet Count 196 X10^3/uL (150-400); Red Blood Cell Count 5.27 X10^6/uL (4.5-5.9); Red Cell Distribution Width 14.6 % (11.6-14.8); White Blood Cell Count 15.2 X10^3/uL (4.5-11.0)
[2024-12-10 07:05] LABS: BUN Creatinine Ratio 18.8 (6-22); Blood Urea Nitrogen 18 mg/dL (9-20); Calcium 8.5 mg/dL (8.4-10.2); Carbon Dioxide 23 mmol/L (22-32); Chloride 98 mmol/L (98-107); Estimated Glomerular Filt Rate > 60 mL/min (>60); Glucose 101 mg/dL (80-110); HEMOLYSIS < 15 (0-50); Potassium 4.4 mmol/L (3.4-5.1); Sodium 129 mmol/L (137-145)
[2024-12-10 07:42] VITALS: BP 141/78; PULSE 81; RESP 19; TEMP 36.3; O2SAT 97
[2024-12-10 09:00] VITALS: O2SAT 95
[2024-12-10] MEDS: CALCIUM CARBONATE 500 MG TAB PO (09:08)
[2024-12-10] MEDS: DOCUSATE 100 MG CAPSULE PO (09:08)
[2024-12-10 09:09] VITALS: BP 141/78; PULSE 81
[2024-12-10] MEDS: MEMANTINE HCL 5 MG TABLET PO (09:09)
[2024-12-10] MEDS: METOPROLOL ER 25 MG TABLET PO (09:09)
[2024-12-10] MEDS: APIXABAN 5 MG TABLET PO (09:09)
[2024-12-10] MEDS: CHOLECALCIFEROL (VITAMIN D3) 1,000 UNIT TABLET 1000 UNIT PO (09:09)
--- NOTE | 2024-12-10 10:42 | CM.DPC ---
DCP Cont. Reviewed EMR and team rounds for status updates. Pt has been medically cleared for d/c, his will be taking him over to [facility] at 2:30pm today, this LAW OFFICE RECEPTIONIST notified Dr. Sutherland, who will have d/c order and scripts ready by 1:30pm. No further CM d/c needs identified at this time.
--- NOTE | 2024-12-10 13:00 | P.DS_ITS ---
History of Present Illness History of Present Illness Date Patient Seen: 12/10/24 Time Patient Seen: 13:00 Chief complaint: General Weakness Narrative: Patient is well known to me has a history of dementia presumably Alzheimer's type that has been progressively worsening and patient has been having sun downers and hallucinations at home. He was initially started on Seroquel 25 mg at bedtime and then this increased to 50 mg and it was thought that perhaps the hallucinations were worsened and then we attempted to switch to Risperdal but he really only had 1 dose and symptoms seemed to be progressively worsening he was straining to have bowel movements up 14 times a night and difficulty urinating. He was brought to the ER was evaluated was sent home came back to the ER had urinary retention with suspected constipation as well and was admitted to the hospital for metabolic encephalopathy with possible underlying UTI. Patient has had extensive workup recently had a EEG results we do not have. This was at the request of Dr. Flores. Patient has had MRIs most recently was October 23, 2024 and was not MRI MRA stroke protocol that did not show any significant abnormalities or evidence of blockages. Patient recently had markers for Alzheimer's that appear to be positive but has not had follow up with Neurology. He previously had been started on acetylcholine esterase inhibitors but had horrible diarrhea but he has been stable on memantine for over a year. Past medical history is remarkable for 1. Atrial fibrillation for which he is on chronic anticoagulation with Eliquis 2. BPH with urinary obstruction 3. Chronic constipation 4. GERD 5. Glaucoma 6. Chronic kidney disease stage 3 7. Mixed hyperlipidemia 8. Polycythemia 9. Peripheral neuropathy 10. Hypothyroidism 11. Hypertension 12. Ischemic cardiomyopathy 13. Aortic stenosis 14. Peripheral vascular disease 15. Spinal stenosis of the lumbar region Allergies: Multiple bee venom, Cipro, sulfa, yellow jacket, donepezil, cephalexin, nitrofurantoin, penicillin Past surgical history Adenoidectomy as a child 1991 he had a cholecystectomy Health related behavior No excessive alcohol use. Never been a smoker. Was fairly active until recent health declined. Family history: No family history of dementia. Social history. Patient lives with his in an a [place] in their own home. Their son Vitor is here and helping 12 point review of systems: Denies fever, rash, unintentional weight gain or weight loss patient has had constipation. Patient has not had any dysuria. He has not had any cough or shortness of breath or chest pain or lower extremity edema. He has not had any recent gout attacks. Otherwise 12 point review of systems is negative other than HPI Discharge Providers Provider Date of admission: 12/09/24 11:46 Discharge Date: 12/10/24 Primary care physician: Leann Sutherland MD Consults: 12/08/24 08:37 Consult to Discharge Planning Routine Comment: Consult to Physical Therapy Evaluate & Treat Comment: Physician Instructions: Evaluate and Treat Discharge provider: Leann Sutherland MD Summary Status at Discharge Cognitive/behavioral status at discharge: at baseline, confused Functional status at discharge: uses cane/walker Overall status at discharge: patient is progressing back to baseline Exam Vital Signs (past 8 hours): - 12/10/24 07:42 12/10/24 09:00 12/10/24 09:09 Temperature 97.4 F L Pulse Rate 81 81 Respiratory Rate 19 Blood Pressure 141/78 H 141/78 H Pulse Oximetry 97 95 Oxygen Delivery Method Room Air Oxygen Flow Rate 0 0 Oxygen Delivery Method Room Air Oxygen Flow Rate 0 Narrative Exam Narrative: Patient is alert to person and place. Patient states that he is buying a new house and they are going to be moving today. Vital signs are stable afebrile HEENT unremarkable Neck: Supple Chest: Clear to auscultation Cor irregularly irregular rhythm with distant S1-S2, unchanged murmur Abdomen: Positive bowel sounds, soft, nontender, nondistended Extremities: No edema pulses intact no focal findings Objective Labs 12/10/24 06:37 12/10/24 06:37 Labs: Laboratory Results - last 24 hr 12/10/24 06:37 WBC 15.2 H RBC 5.27 Hgb 15.9 Hct 47.4 MCV 89.9 MCH 30.2 MCHC 33.6 RDW 14.6 Plt Count 196 Neut % (Auto) 77.8 H Lymph % (Auto) 10.9 L [place] % (Auto) 9.2 Eos % (Auto) 1.5 L Baso % (Auto) 0.6 Neut # (Auto) 17633 H Lymph # (Auto) 1700 [place] # (Auto) 1400 H Eos # (Auto) 200 Baso # (Auto) 100 Sodium 129 L Potassium 4.4 Chloride 98 Carbon Dioxide 23 BUN 18 Creatinine 0.96 Estimated GFR > 60 BUN/Creatinine Ratio 18.8 Glucose 101 Calcium 8.5 [facility] Social History household members: spouse Smoking Status: Never smoker alcohol intake: current Discharge Assessment & Plan Assessment and Plan Assessment: Assessment 1. Severe dementia now with acute hallucinations and altered mental status. Unclear if this is natural progression but certainly suspect that dehydration, urinary retention, constipation and possible urinary tract infection or worsening of symptoms Plan: Patient is doing much better and is close back to baseline. Will continue off any Seroquel or Risperdal and only use Haldol if needed for agitation. Suspect worsened mental status and hallucinations were multifactorial possible dehydration, obstipation, urinary tract infection. Status post treatment for all of these. Blood cultures are negative but still pending. Urinalysis and chest x-ray normal Will continue with same Namenda Everett catheter was removed and patient is urinating fine without any difficulty. Patient is no longer on IV fluids. Transferred today to [facility] Assessment 2. UTI Plan: Patient treated with IV ceftriaxone x4. Blood cultures are negative thus far and urinalysis entirely normal. Culture was not done. Patient without any further symptoms and white blood cell count is trending down. Will DC without antibiotics. Catheter was removed and patient is urinating normally without any retention or problems. Assessment 3. Chronic kidney disease with acute dehydration improved this morning with IV fluids and stable off IV fluids Plan: Will encourage p.o. intake Assessment 4. Severe deconditioning with high fall risk Plan: Continue with PT OT Assessment 5. AFib with well-controlled rate Plan: Will continue on metoprolol 25 mg daily and Eliquis. Assessment 6. Hypothyroidism Plan: Continue outpatient thyroid medication Assessment 7. Constipation, chronic with stool ball on CT scan with possible stercoral colitis. He is now passing significant amount of stool and seems to be doing better. White blood cell count is improving. We will continue with current bowel regimen and monitoring and discharge to [facility]. Will continue with bowel regimen aggressively. 51 minutes spent with the patient meeting with him and his and his son-in-law and discussing with nursing and in reviewing workup in the ER formulating a plan and documentation Code status is DNR Transfer today to [facility]. Discharge Plan Discharge Plan Patient Disposition: Assisted Living Transfer to: [facility] Consult as needed: Dental, Hearing, Mental health, Podiatry and Vision Discharge orders & Medications Discharge Orders: Discharge (Order); Ordered 12/10/24 Ordered By: Leann Sutherland Prescriptions: New docusate sodium 100 mg Capsule 100 mg PO BID Qty: 60 8RF Continued atorvastatin 10 mg tablet 10 mg DAILY carboxymethylcellulose sodium 1 % Drops, Liquid Gel 1 drp OPHTHALMIC (EYE) DAILY PRN (Reason: Dry Eye(S)) memantine 5 mg tablet 5 mg PO BID Eliquis 5 mg tablet 5 mg PO BID Vitamin D (with calcium) 1 tab PO DAILY levothyroxine [Synthroid] 75 mcg Tablet 75 mcg PO DAILY metoprolol succinate 25 mg Tablet Extended Release 24 Hr 25 mg PO DAILY Discontinued quetiapine 25 mg tablet 50 mg PO ONCE PM Follow up/Referrals: Leann Sutherland MD [Primary Care Provider] - Discharge Health Status Multidrug resistant organism: No MDRO Precautions: [place] Diet/Activity/Treatments Diet: Diet as Tolerated Liquid consistency: Normal/Thin Food texture: Regular Visit Report/Discharge Packet Stand Alone Forms: Patient Portal/API, Stroke Signs & Symptoms Discharge Data Primary Care Provider: Leann Sutherland Quality VTE Deep Vein Thrombosis/Pulmonary Embolism Present on Admission: No
== END 2024-12-10 15:08 | DRG 689 ==
LOC: ED 18:58 → AC 21:45
PROVIDERS: Emergency Medicine; Admitting Provider Family Medicine; Emergency Provider Emergency Medicine; PCP Family Medicine; Referring Provider Family Medicine; Visit Provider Family Medicine
DX: N39.0 Urinary tract infection, site not specified (principal); G93.41 Metabolic encephalopathy; F02.C2 Dementia in other diseases classified elsewhere, severe, with psychotic disturbance; E86.0 Dehydration; I48.91 Unspecified atrial fibrillation; E03.9 Hypothyroidism, unspecified; K59.00 Constipation, unspecified; E78.2 Mixed hyperlipidemia; I12.9 Hypertensive chronic kidney disease with stage 1 through stage 4 chronic kidney disease, or unspecified chronic kidney disease; N40.1 Benign prostatic hyperplasia with lower urinary tract symptoms; R33.8 Other retention of urine; K59.09 Other constipation; G30.9 Alzheimer's disease, unspecified; N18.30 Chronic kidney disease, stage 3 unspecified; Z88.2 Allergy status to sulfonamides; Z88.0 Allergy status to penicillin; Z79.01 Long term (current) use of anticoagulants; Z79.890 Hormone replacement therapy; Z66 Do not resuscitate; Z91.81 History of falling; Z88.1 Allergy status to other antibiotic agents
CPT/HCPCS: 36415; 51798; 70450; 71045; 74177; 80048; 80053; 80305; 81001; 82140; 82962; 83605; 85025; 85610; 87040; 93005; 96365; 97162; 97530; 99285; G0378; A9270; J0696; J2405

== ENCOUNTER → 2024-12-16 06:17 | Outpatient (ROUT) | payer OTHER, SELFPAY ==
[2024-12-07 21:51] VITALS: BMI 24.4
== END ==
PROVIDERS: PCP Family Medicine; Visit Provider Family Medicine
DX: R41.89 Other symptoms and signs involving cognitive functions and awareness (principal)
CPT/HCPCS: 36415; 83520